=== PATIENT | female | born 1940 | race Caucasian/White ===

== ENCOUNTER 2018-01-16 08:32 | Outpatient (CLI) | payer MEDICARE ==
--- NOTE | 2018-01-16 10:58 | MRI ---
MRI OF THE LEFT WRIST WITHOUT CONTRAST: INDICATION: History of left wrist without history of a fall. TECHNIQUE: Multiplanar, multisequence MR images were obtained of the left wrist without IV contrast. The patien t was unable to lay on the stomach for appropriate positioning of the left wrist. There is motion ar tifact that slightly limits image detail. No radiographic comparisons are available. FINDINGS: There is ulnar minus configuration at the DRUJ. There is an ununited ulnar styloid process fracture. There is advanced 1st CMC osteoarthrosis. There is an obliquely oriented tear involving the centra l aspect of the TFC best seen on image 10 of series 10. The visualized intrinsic and extrinsic ligam ents of the wrist appear intact. Carpal tunnel contents appear within normal limits. The FCR and FC E tendons are intact. The extensor tendons appear intact. IMPRESSION: 1. Limitations of the exam. 2. Obliquely oriented full thickness tear involving the triangular fibrocartilage. 3. Remote-appearing ununited ulnar styloid process fracture. 4. Advanced 1st carpometacarpal osteoarthrosis. POS: [facility]
== END 2018-01-16 08:33 | disposition home or self-care (01) ==
LOC: TBSIIMAG 08:32
PROVIDERS: ATTEND Orthopaedic Surgery Hand Surgery
DX: S63.592A Other specified sprain of left wrist, initial encounter (principal); M18.12 Unilateral primary osteoarthritis of first carpometacarpal joint, left hand

== ENCOUNTER 2018-02-11 19:40 | Emergency (ER) | payer MEDICARE ==
[2018-02-11 20:26] LABS: #Basophils 0.1 thou/uL (0.0-0.2); #Eosinphils 0.1 thou/uL (0.0-0.7); #Lymphocytes 2.3 thou/uL (1.20-3.40); #Monocytes 0.5 thou/uL (0.11-0.59); %Basophils 0.9 % (0.0-1.0); %Lymphocytes 32.4 % (21.0-51.0); %Monocytes 7.8 % (0.0-10.0); Hemoglobin 13.8 g/dL (12.0-16.0); Mean Corpuscular HGB CONC 35.8 g/dL (32.0-36.0); Mean Corpuscular Volume 86.6 fl (81.0-99.0); Mean Platelet Volume 6.9 fL (7.4-10.4); Platelet Count 276 thou/uL (130-400); RBC Distribution Width 12.4 % (11.5-14.5); Red Blood Cell (RBC) Count 4.44 mill/uL (4.20-5.40); White Blood Cell (WBC) Count 6.9 thou/uL (4.8-10.8)
[2018-02-11 20:45] LABS: ALT (SGPT) 11 U/L (8-55); AST (SGOT) 14 U/L (5-34); Albumin 3.8 g/dL (3.4-4.8); Alkaline Phosphatase 125 U/L (40-150); Anion Gap 12 mmol/L (10-20); BUN (Urea Nitrogen) 9 mg/dL (9.8-20.1); Bilirubin, Total 0.5 mg/dL (0.2-1.2); Calc. Creatinine Clearance 0 mL/min (70-130); Calcium 9.2 mg/dL (7.8-10.44); Carbon Dioxide 23 mmol/L (23-31); Chloride 102 mmol/L (98-107); Estimated GFR-MDRD 65; Globulin 2.7 g/dL (2.4-3.5); Glucose 153 mg/dL (83-110); Potassium 3.7 mmol/L (3.5-5.1); Protein, Total 6.5 g/dL (6.0-8.3); Sodium 133 mmol/L (136-145)
--- NOTE | 2018-02-11 20:48 | RAD ---
CHEST TWO VIEWS: HISTORY: Left flank pain. COMPARISON: None. FINDINGS: Slight elongation of the aorta. Atherosclerosis of the aortic knob. Normal cardiac silhouette. The re is patchy interstitial and alveolar opacity. No pleural effusion. No pneumothorax. IMPRESSION: Patchy interstitial and alveolar opacities. Correlate for infiltrate. POS: [facility]
--- NOTE | 2018-02-11 20:49 | RAD ---
ONE VIEW ABDOMEN: HISTORY: Left flank pain. COMPARISON: None. FINDINGS: There are calcifications projecting over the left hemiabdomen, which are of uncertain significance an d etiology. Overall, the bowel gas pattern is nonspecific, but there are a few air-filled loops of m ildly prominent small bowel. Evaluation is limited. Better interrogation with abdomen and pelvis CT utilizing oral and IV contrast is recommended. IMPRESSION: As above. POS: [facility]
[2018-02-11] MEDS ORDERED: Ketorolac Tromethamine 30 MG/ML VIAL ONE (21:36)
[2018-02-11 21:53] LABS: Bilirubin Negative (Negative); Blood, Urine Small (Negative); Clarity CLEAR (Clear); Glucose, Urine (Dipstick) Negative (Negative); Leukocyte Small (Negative); Nitrite Negative (Negative); Protein, Urine (Dipstick) Negative (Neg-Trace); Specific Gravity, Urine 1.006 (1.002-1.036); Urobilinogen 0.2 mg/dL (0.2-1.0)
[2018-02-11 21:55] LABS: Bacteria/HPF None Seen HPF (None Seen); Hyaline Casts/LPF 0-3 HYALINE CAST LPF (0-3 Hyaline); Squamous Epithelial 0-3 HPF (0-3)
--- NOTE | 2018-02-11 22:40 | CT ---
CT ABDOMEN AND PELVIS NONCONTRAST: INDICATIONS: Left flank pain. COMPARISON: None. FINDINGS: No evidence of urolithiasis or obstructive uropathy. There is moderate distention of the urinary blanka dder. An extrarenal pelvis is present bilaterally. Small hypodensity of the right hepatic lobe is t oo small to further characterize. There is fullness of the left adrenal gland. Pancreatic atrophy. Granulomatous calcifications are seen. No significant abnormality at the imaged lung bases. Right hip hardware produces streak artifact, limiting visualization in this region. Chronic appearing supe rior endplate irregularity is present, involving the L4 segment, likely Schmorl's nodes. Diffuse vas cular calcification is present. There is colonic diverticulosis. IMPRESSION: No urolithiasis or obstructive uropathy. Evaluation otherwise limited on the basis of this noncontra st technique, with additional details discussed above. POS: [facility]
== END 2018-02-11 23:54 | disposition home or self-care (01) ==
LOC: ERS 19:40
DX: K59.00 Constipation, unspecified (principal); E78.5 Hyperlipidemia, unspecified; I10 Essential (primary) hypertension; Z87.891 Personal history of nicotine dependence; Z79.82 Long term (current) use of aspirin; Z79.899 Other long term (current) drug therapy
CPT/HCPCS: 71046; 74018; 74176; 80053; 81003; 81015; 85025; 87086; 96374; J1885

== ENCOUNTER 2018-02-12 14:29 | Emergency (ER) | payer MEDICARE ==
[~2018-02-12 14:29] MED LIST: ISOVUE-370 76%-LOCM 1 ML ONE
--- NOTE | 2018-02-12 17:40 | CT ---
CT ANGIOGRAM OF THE THORAX AND ABDOMINAL AORTA: History: Pain. Constipation. Fever. Evaluate for dissection. Comparison: Stone protocol CT 02-11-18. Technique: CT angiogram of the thoracic and abdominal aorta performed in the axial plane. Coronal ref ormatted images are submitted for interpretation. FINDINGS: CHEST CT: No mediastinal mass, lymphadenopathy, or hematoma. Chronic changes of the lung parenchyma with areas of scarring and septal/interstitial thickening are suspected. Trachea and central bronchi are patent. No pleural effusion or pneumothorax. No mediastinal mass, lymphadenopathy or hematoma. Heart size is within normal limits. No pericardial effusion. There is minimal coronary calcification. Adequate contrast opacification of the pulmonary arterial system to the level of lobar arteries. No f illing defect to suggest thromboembolism. ABDOMEN CT: Appropriate enhancement of the solid organs. No mesenteric mass, lymphadenopathy, free air or free fluid. Scattered fecal material in a nondistend ed colon is noted. Symmetric enhancement of the kidneys. No obstructive uropathy. CT ANGIOGRAM: There is appropriate enhancement of luminal diameter of the ascending aorta, aortic arch, descending thoracic aorta, and abdominal aorta. The aortic bifurcation is unremarkable. Celiac artery origin, anderson perior mesenteric artery origin, bilateral renal artery are patent and unremarkable. The origin of th e carotid and vertebral arteries as well as the subclavian arteries are grossly unremarkable. IMPRESSION: No evidence of aneurysm or dissection. POS: [facility]
== END 2018-02-12 17:35 | disposition home or self-care (01) ==
LOC: ERS 14:29
DX: K59.00 Constipation, unspecified (principal); E78.5 Hyperlipidemia, unspecified; I10 Essential (primary) hypertension; Z87.891 Personal history of nicotine dependence; Z79.82 Long term (current) use of aspirin; Z79.899 Other long term (current) drug therapy
CPT/HCPCS: 71275

== ENCOUNTER 2018-07-27 17:20 | Inpatient (IN) | payer MEDICARE ==
[~2018-07-27 17:20] MED LIST changes: -ISOVUE-370 76%-LOCM 1 ML ONE; +Iopamidol 370 76% 100 ML VIAL ONE; +Iopamidol 370 76% 50 ML VIAL FS ONE
[2018-07-27] MEDS ORDERED: Dicyclomine 20 MG TAB ONE (18:16)
[2018-07-27 18:32] LABS: Bilirubin Negative (Negative); Blood, Urine Moderate (Negative); Glucose, Urine (Dipstick) Negative (Negative); Leukocyte Trace (Negative); Nitrite Negative (Negative); Protein, Urine (Dipstick) Negative (Neg-Trace); Urobilinogen 0.2 mg/dL (0.2-1.0); pH, Urine 6.5 (5.0-9.0)
[2018-07-27 18:34] LABS: Clarity CLEAR (Clear)
[2018-07-27 18:40] LABS: Bacteria/HPF Rare-Few HPF (None Seen); Hyaline Casts/LPF NONE SEEN LPF (0-3 Hyaline); Squamous Epithelial 0-3 HPF (0-3)
[2018-07-27 18:54] LABS: #Basophils 0.1 thou/uL (0.0-0.2); #Eosinphils 0.4 thou/uL (0.0-0.7); #Lymphocytes 2.1 thou/uL (1.20-3.40); #Monocytes 0.7 thou/uL (0.11-0.59); #Neutrophils 6.6 thou/uL (1.40-6.50); %Basophils 0.9 % (0.0-1.0); %Eosinophils 4.3 % (0.0-10.0); %Lymphocytes 21.4 % (21.0-51.0); %Monocytes 6.5 % (0.0-10.0); %Neutrophils 66.8 % (42.0-75.0); Hemoglobin 14.6 g/dL (12.0-16.0); Mean Corpuscular HGB CONC 33.5 g/dL (32.0-36.0); Mean Corpuscular Hemoglobin 29.9 pg (27.0-31.0); Mean Corpuscular Volume 89.3 fL (78.0-98.0); Mean Platelet Volume 8.4 fL (7.4-10.4); Platelet Count 197 thou/uL (130-400); RBC Distribution Width 12.4 % (11.5-14.5); Red Blood Cell (RBC) Count 4.88 mill/uL (4.20-5.40); White Blood Cell (WBC) Count 9.9 thou/uL (4.8-10.8)
[2018-07-27 19:14] LABS: ALT (SGPT) 14 U/L (8-55); AST (SGOT) 20 U/L (5-34); Albumin 3.9 g/dL (3.4-4.8); Alkaline Phosphatase 122 U/L (40-150); Anion Gap 11 mmol/L (10-20); BUN (Urea Nitrogen) 9 mg/dL (9.8-20.1); Bilirubin, Total 0.7 mg/dL (0.2-1.2); Calc. Creatinine Clearance 0 mL/min (70-130); Calcium 8.9 mg/dL (7.8-10.44); Carbon Dioxide 22 mmol/L (23-31); Chloride 104 mmol/L (98-107); Estimated GFR-MDRD 88; Globulin 2.8 g/dL (2.4-3.5); Glucose 99 mg/dL (83-110); Lipase 8 U/L (8-78); Potassium 3.3 mmol/L (3.5-5.1); Protein, Total 6.7 g/dL (6.0-8.3); Sodium 134 mmol/L (136-145)
--- NOTE | 2018-07-27 23:09 | CT ---
CT OF THE ABDOMEN AND PELVIS WITH IV CONTRAST 07/27/18 INDICATION: Abdominal surgery with concern for constipation, cramping and abdominal pain. COMPARISON: Prior CT of the abdomen and pelvis. Dated 02/11/18. FINDINGS: There is moderate distention of the ascending colon, transverse colon and descending colon with a tra nsition zone seen at the descending colon/sigmoid colon junction. The sigmoid colon is largely decomp ressed. There are scattered diverticula. There is no pericolonic inflammatory stranding. Small bowel is of normal caliber. The lung bases are clear. There is a small hypodensity within the right hepatic lobe suspicious for cysts. There is a left adre nal nodule measuring 1.4 cm stable to the May examination but cannot be further characterized on the current study. There are bilateral extrarenal pelves. No free fluid or enlarged lymph nodes are demonstrated. There is healed deformity involving the right obturator ring. There is an instrumented right hip frac ture that appears healed. There are scattered degenerative and osteoarthritic change. IMPRESSION: 1. Prominent distention of majority of the colon including ascending colon, transverse colon, de scending colon with transition zone seen at the descending colon/sigmoid colon junction. Findings may be related to a mild colitis. Mild obstruction from colonic stricture is an additional considerati on. 2. Left adrenal nodule, incompletely characterized on current study. If clinically indicated a followup CT of the abdomen utilizing adrenal mass protocol may be helpful f or further characterization. 3. Right hepatic lobe cyst. 4. Other chronic findings as above. POS: [facility]
[2018-07-27] MEDS ORDERED: Ondansetron ODT 4 MG TAB SL PRN (23:36)
[2018-07-27] MEDS ORDERED: Ondansetron PF 4 MG/2 ML Vial IVP PRN (23:36)
[2018-07-27] MEDS ORDERED: Acetaminophen 325 MG TAB PO PRN (23:36)
[2018-07-28] MEDS: Lactated Ringer's 1,000 ML IV SCH ×2 (00:23→09:14)
[2018-07-28] MEDS ORDERED: Acetaminophen 1,000 MG in Premix Bag 1 BAG IVPB PRN (01:01)
[2018-07-28 01:02] VITALS: BMI 29.2
[2018-07-28] MEDS: Ketorolac Tromethamine 30 MG/ML VIAL IVP PRN ×2 (04:40→12:00)
[2018-07-28] MEDS ORDERED: Fleet Enema 133 ML BOT PR SCH ×2 (09:00→11:30)
[2018-07-28] MEDS ORDERED: Meropenem 2 GM, Admixture Fee 1 EACH in Sodium Chloride 0.9% 100 ML IVPB SCH (10:00)
[2018-07-28] MEDS ORDERED: Sodium Chloride 0.9% 1,000 ML IV SCH (10:00)
--- NOTE | 2018-07-28 10:08 | HP ---
HISTORY OF PRESENT ILLNESS: Kelly Bah is a 77-year-old female, who presented to the emergency ro om with crampy abdominal pain and distention. CAT scan revealed transition zones, descending sigmoid colon with proximal colon distention and distal colon decompression. She has not had a colonoscopy in more than 25 years. She denies any blood per rectum. Family history is negative for colon cancer . She does have sisters that had had breast cancer. The patient's laboratories are essentially norm al. ALLERGIES: MORPHINE. TOBACCO: Cessation 10 years ago. ALCOHOL: None. MEDICATIONS: Ranitidine 150 mg b.i.d., Senna 8.6 mg b.i.d., Spiriva inhaler daily, Zocor 40 mg at be dtime, aspirin 81 mg a day. PAST SURGICAL HISTORY: Bilateral mastectomies for benign disease, reconstruction and subsequent beni al of implant. She had some "sort of flap" reconstruction from her lower abdomen, probably TRAM. R ight hip ORIF, history of pelvic fracture without surgery, total abdominal hysterectomy and bilateral salpingo-oophorectomy over 2 operations, appendectomy during her hysterectomy. PAST MEDICAL HISTORY: COPD. Tobacco cessation 10 years ago, hypertension, although medication disco ntinued due to too low blood pressure. The patient earlier this year, because of some epigastr ic pain, saw [facility] squeak rattle and leak repairer, undergoing a cardiac stress test that was n ormal. She was told her heart was very healthy and did not need Cardiology followup. She saw Dr. Ra heredia, and in November or December of this year, had an upper endoscopy documented peptic ulcer disease. She is on ranitidine. REVIEW OF SYSTEMS: Ten point noncontributory. The patient lives with her son in [place]. 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 PHYSICAL EXAMINATION: VITAL SIGNS: 5 feet 3, 164 pounds, 29 BMI, 97.6, 70, 18, 105/68. LUNGS: Clear to auscultation, no wheezing. CARDIAC: Regular rate and rhythm without murmur or gallop. ABDOMEN: Soft, distended, tympanitic. No guarding. Scars per above surgical history. EXTREMITIES: Palpable pulses. LABORATORY DATA: White count 9, hemoglobin 14. Basic metabolic profile normal. Potassium 3.3 and s odium 134. ASSESSMENT AND PLAN: 1. Abdominal pain, distention, suggesting a possible colon obstruction. We would recommend enemas a wy Gastroenterology consultation. They request Dr. Gonzalez. If he is not available, [facility]. We would be prepared for colon resection, colostomy if necessary after a flexible sigmoidoscopy or colonoscopy is possible. She would not be able to tolerate a bowel prep due to her colon distention. We will give her enemas. 2. Hypertension. 3. Chronic obstructive pulmonary disease, mild. No wheezing. 4. Cardiac stress test earlier this year, normal.
[2018-07-28] MEDS: NS 0.9% w/ 40 MEQ KCL 1,000 ML IV SCH ×2 (11:00→19:44)
[2018-07-28] MEDS: Ipratropium Bromide 2.5 ml Neb NEB SCH ×3 (12:21→22:40)
[2018-07-28] MEDS ORDERED: PHENYLEPHRINE-NS 100 MCG/ML 10 ML SYRINGE ONE (13:18)
[2018-07-28] MEDS ORDERED: Glycopyrrolate 0.2 MG/ML 5 ML SYRINGE ONE (13:18)
[2018-07-28] MEDS ORDERED: Succinylcholine Chloride 20 MG/ML 10 ml SYRINGE FS ONE (13:18)
[2018-07-28] MEDS ORDERED: PROPOFOL 200 MG/20 ML VIAL ONE (13:18)
[2018-07-28] MEDS ORDERED: Ondansetron PF 4 MG/2 ML Vial ONE (13:18)
[2018-07-28] MEDS ORDERED: Lidocaine 1% PF 5 ML VIAL ONE (13:18)
[2018-07-28] MEDS ORDERED: Fentanyl 250 MCG/5 ML VIAL ONE (13:54)
[2018-07-28] MEDS ORDERED: Sodium Chloride 0.9% 20 ML ONE (15:33)
[2018-07-28] MEDS ORDERED: Midazolam HCl 2 mg/2 ml Vial ONE (16:59)
--- NOTE | 2018-07-28 17:00 | CON ---
DATE OF CONSULTATION: 07/28/2018 REFERRING PHYSICIAN: Dr. Jeremy Scott. REASON FOR CONSULTATION: Abdominal pain, not able to have a BM and abnormal CT scan of the abdomen. HISTORY OF PRESENT ILLNESS: Ms. Kelly Bah is a very pleasant 77-year-old female who is known to me from before. The patient was admitted to the hospital with abdominal pain, nausea, and underwent EGD and was found to have a gastric ulcer. The patient was placed on PPI. The patient had not seen me after the initial visit at endoscopy unit this year. The patient also has a history of chronic constipation and takes laxatives and stool softener on a regular basis. She had 3 soft stool s on Tuesday. She had no stool yesterday and she is not passing any flatus. She was found to have abdominal cramping, which is diffuse across the lower abdomen with some nausea. She is not able to have any bowel movement over the last 48 hours and also she is also not able to pass any gas. She ca me to the ER where she had an abdominal CAT scan done. The abdominal CAT scan shows decompressed sig moid colon and distended proximal colon indicated possibly she has a bowel obstruction. The patient has had no colonoscopy more than 20 years. The patient has no history of fever, no history of hemato chezia or any melena. The patient's previous surgeries include hysterectomy and also removal of ovar y subsequently. She has no relevant history. ALLERGIES: OPIOIDS. SOCIAL HISTORY: The patient does not smoke or drink alcohol. MEDICAL ILLNESSES: 1. Hypertension and was on some medication and was taken off the medication as her blood pressure be en normalized. 2. Arthritis. 3. Hyperlipidemia. 4. Gastric ulcer in 2018. PAST SURGICAL HISTORY: She has had hysterectomy and subsequently oophorectomy. She also has had a r ight hip fracture with pin placement. She had a pelvic fracture earlier this year. MEDICATIONS: List reviewed which include, 1. Zantac 150 twice a day. 2. Senna. 3. Spiriva inhaler. 4. Simvastatin. 5. Aspirin. REVIEW OF SYSTEMS: A 10-point system review: Constitutional: No history of weight loss. No fever. She has good exercise tolerance. No history of any weakness. HEENT: No diplopia, no hearing loss , no sore throat, no nose bleed. Lungs: No hemoptysis. Cardiovascular: No chest pain, no palpitat ion, no dyspnea, orthopnea or PND. Gastrointestinal: As in history of present illness. Genitourina ry: No dysuria, hematuria or frequency of urination. Musculoskeletal: History of back pain and knee pains. Endocrine: Unremarkable. PHYSICAL EXAMINATION: GENERAL: The patient appears very comfortable in no acute distress. She is awake, alert, oriented t o time, place and person. The family is not in the room. VITAL SIGNS: Actually stable. Afebrile, pulse is 60, blood pressure is 115/71. HEENT: Conjunctivae clear. CARDIOVASCULAR: First and second heart sounds were normal. LUNGS: Clear to auscultation. ABDOMEN: Mildly distended, but very soft. Abdomen is tender over the left lower quadrant and also o edu the epigastric area. There is no rebound, no rigidity or guarding noted. She has hypoactive bow el sounds. EXTREMITIES: Reveal no edema. LABORATORY DATA AND IMAGING: WBC 9900, hemoglobin 14.6, hematocrit 43.6, platelet count is 197,000, polymorphs 66, lymphocytes 21. Serum chemistries: Sodium is normal, potassium 3.3, chloride 104, bi carbonate 22, BUN is 9, creatinine 0.65, glucose is 99, calcium is 8.9, bilirubin 0.7, AST 20, ALT 14 . An abdominal CAT scan shows dilation of the descending colon, ascending colon, transverse colon, b ut the sigmoid colon appears decompressed and I am seeing a possibility of bowel obstruction. She is not having stool over the last 36 hours and not able to pass any gas. However, the abdomen is actua lly somewhat benign not very much distended and not very firm. CLINICAL IMPRESSION: 1. Hypertension, not on medication. 2. Hyperlipidemia. 3. Previous leg fracture surgery. 4. Gastric ulcer in 2018. RECOMMENDATIONS: 1. NPO. 2. Flexible later on this morning and I will make further recommendations.
[2018-07-28] MEDS ORDERED: Promethazine HCl 25 MG/ML VIAL SLOW IVP PRN (17:07)
[2018-07-28] MEDS ORDERED: Ondansetron HCl/PF 4 MG/2 ML Vial IVP PRN (17:07)
[2018-07-28] MEDS ORDERED: Ketorolac Tromethamine 30 MG/ML VIAL IVP PRN ×2 (17:07→17:31)
[2018-07-28] MEDS ORDERED: Promethazine HCl 25 MG/ML VIAL IM PRN ×2 (17:07→17:31)
[2018-07-28] MEDS ORDERED: HYDROmorphone 2 MG/ML VIAL SLOW IVP PRN (17:07)
[2018-07-28] MEDS ORDERED: Fentanyl 100 MCG/2 ML VIAL ONE (17:18)
[2018-07-28] MEDS ORDERED: Naloxone HCl 0.4 mg/ml Vial IV PRN (17:31)
[2018-07-28] MEDS ORDERED: diphenhydrAMINE 25 MG CAP PO PRN (17:31)
[2018-07-28] MEDS ORDERED: diphenhydrAMINE 50 MG/ML VIAL IVP PRN (17:31)
[2018-07-28] MEDS ORDERED: Ondansetron PF 4 MG/2 ML Vial IVP PRN (17:31)
[2018-07-28] MEDS ORDERED: Zolpidem Tartrate 5 MG TAB PO PRN (17:31)
[2018-07-28] MEDS ORDERED: fentaNYL Citrate/PF 2,000 MCG in Sodium Chloride 0.9% 60 ML IV PRN (17:31)
[2018-07-28] MEDS ORDERED: diphenhydrAMINE 50 MG/ML VIAL IM PRN (17:31)
[2018-07-28] MEDS ORDERED: HYDROmorphone 2 MG/ML VIAL ONE (17:37)
--- NOTE | 2018-07-28 17:41 | RAD ---
UPRIGHT PORTABLE CHEST ONE VIEW: 07/28/18 HISTORY: 77-year-old female with history of central line placement. COMPARISON: 02/11/18. FINDINGS: NG tube is seen in place extending into the stomach, although the distal tip is not included. Right s ubclavian catheter in place with the tip in the distal superior vena cava. No pneumothorax or pleural effusion. Increased linear and interstitial markings bilaterally. IMPRESSION: Right subclavian catheter in place without pneumothorax. Some increased linear and interstitial damián ngs bilaterally, stable. NG tube in place. Atherosclerosis of the aorta with ectasia. POS: [facility]
[2018-07-28] MEDS ORDERED: Communication Order-Pharmacy FS SCH (17:45)
[2018-07-28] MEDS: Ketorolac Tromethamine 30 MG/ML VIAL IVP SCH ×2 (19:38→23:23)
[2018-07-28] MEDS: Acetaminophen 1,000 MG in Premix Bag 1 BAG IVPB SCH ×2 (19:38→23:24)
--- NOTE | 2018-07-28 19:59 | OP ---
DATE OF PROCEDURE: 07/28/2018 PROCEDURE: Flexible sigmoidoscopy. PREOPERATIVE DIAGNOSIS: Colonic obstruction and preoperative evaluation. OPERATIVE NOTE: The patient was sedated with general anesthesia. The rectal exam was performed and was normal. There were external hemorrhoids present. The colonoscope was advanced to the sigmoid co eugene. The procedure is a flexible sigmoidoscopy. The scope was advanced to the sigmoid colon. There was moderate diverticulosis of the sigmoid colon. A stricture was encountered in the proximal sigmo id through which the colonoscope could not be passed. There was no clear mucosal abnormality in this area. There was melanosis throughout the distal colon. Retroflex views in the rectum were normal. IMPRESSION: 1. Tight stricture in the mid to proximal sigmoid without mucosal lesion through which the colonosco pe could not be passed. 2. Moderate diverticulosis of the sigmoid colon. 3. Melanosis coli. 4. The colon proximal to the stricture was not visualized. PLAN: 1. She is to undergo surgical resection of the obstructing area. 2. She will eventually need completion colonoscopy.
[2018-07-28] MEDS: Enoxaparin Sodium 40 MG/0.4 ML SYRINGE SC SCH (20:24)
[2018-07-28] MEDS: Pantoprazole 40 MG VIAL IVP SCH (20:25)
--- NOTE | 2018-07-28 23:40 | OP ---
DATE OF PROCEDURE: 07/28/2018 PREOPERATIVE DIAGNOSES: Sigmoid colon obstruction, probably secondary to stricture, diverticulosis. No history of diverticulitis. POSTOPERATIVE DIAGNOSES: Sigmoid colon obstruction, probably secondary to stricture, diverticulosis. No history of diverticulitis. PROCEDURES: Dr. Silvano Odonnell first performed a flexible sigmoidoscopy, could not pass the scope bey ond an obstruction at approximately 30 cm. Laparotomy, sigmoid resection, mobilization of splenic fl exure, sigmoid colon resection, portion of the descending colon resection, colostomy, Vane's pouc h, marked with a 2-0 Prolene, Seprafilm placed, right subclavian vein triple-lumen catheter. SURGEON: Jeremy Scott M.D. ANESTHESIA: General anesthesia. PROCEDURE IN DETAIL: The patient was taken to the operating room where under general anesthesia, Dr. Silvano Odonnell first performed a flexible sigmoidoscopy revealing the above findings. Abdomen was ma rkedly distended. Abdomen was prepared with ChloraPrep, draped in routine fashion. Incision was mad e, initially smaller, then I had to enlarge it due to extensive distention of the colon. The incisio n was carried down through skin and subcutaneous tissue with great care to avoid colon perforation. Midline incision was made, carried down through skin and subcutaneous tissue and midline fascia and B ookwalter retractor used and I was able to mobilize the distal descending colon and sigmoid colon. T here was stricture noted in the lower sigmoid colon. ____ below the stricture, the colon was decompr essed. The colon was dissected free probably about 10 cm below the stricture and mesentery taken ilene n with LigaSure and colon divided with contour stapler. Mesentery divided with LigaSure proximally m obilizing the left colon, identifying the left ureter, keeping it free of harm. Venous congestion du e to the obstruction lead to some bleeding controlled with pressure and cautery and LigaSure. Left u reter kept free of harm as the colon was mobilized along the splenic flexure and the gastrocolic liga ment taken down from the distal transverse colon using the LigaSure and cautery. Once the splenic fl exure was mobilized, the obstructive process was resected, resecting the sigmoid colon, dividing the distal descending colon with a ASIM-75 stapler. Specimen was submitted to pathology. At this point, good hemostasis ensured. Surgicel placed near the splenic flexure and the pelvis. Good hemostasis w as noted. Sponge and instrument counts were correct and omentum placed over the viscera. The small bowel was not very distended and very slightly so. Nonetheless, an NG tube was placed, palpated in g ood position. As counts were correct, midline fascia closed with continuous suture of number 1 PDS a fter creating the colostomy defect in the left lower quadrant through the rectus sheath, splitting th e anterior rectus fascia, retracting the rectus muscle medially and laterally and bringing the colon out the colostomy site. The fascia was then approximated with number 1 PDS and Seprafilm applied. T he skin and subcutaneous tissues irrigated. Skin approximated with sweta. Prevena dressing applie d for incisional wound VAC. At this point, the gloves and gowns were changed and the colon was resec enrique and placed with the other specimen removing the redundant colon and colostomy maturation undertak en with ____ sutures of 3-0 Vicryl and simple sutures of 3-0 Vicryl and after Prevena wound VAC was a pplied and colostomy matured, colostomy appliance secured. I then changed gloves and gowns and right subclavian vein central line placed using sterile technique , securing the catheter with 3-0 silk suture, removing the J wire. CHD dressing applied. Each port aspirated of blood and flushed with saline solution.
[2018-07-29] MEDS: NS 0.9% w/ 40 MEQ KCL 1,000 ML IV SCH ×3 (03:05→19:22)
[2018-07-29 04:29] LABS: #Lymphocytes 0.8 thou/uL (1.20-3.40); #Monocytes 0.6 thou/uL (0.11-0.59); #Neutrophils 8.1 thou/uL (1.40-6.50); %Basophils 0.2 % (0.0-1.0); %Eosinophils 0.2 % (0.0-10.0); %Lymphocytes 8.3 % (21.0-51.0); %Monocytes 6.3 % (0.0-10.0); %Neutrophils 85.1 % (42.0-75.0); Hemoglobin 12.1 g/dL (12.0-16.0); Mean Corpuscular HGB CONC 32.1 g/dL (32.0-36.0); Mean Corpuscular Volume 90.4 fL (78.0-98.0); Mean Platelet Volume 8.7 fL (7.4-10.4); Platelet Count 171 thou/uL (130-400); RBC Distribution Width 12.6 % (11.5-14.5); Red Blood Cell (RBC) Count 4.18 mill/uL (4.20-5.40); White Blood Cell (WBC) Count 9.6 thou/uL (4.8-10.8)
[2018-07-29 04:59] LABS: Anion Gap 8 mmol/L (10-20); BUN (Urea Nitrogen) 8 mg/dL (9.8-20.1); Calc. Creatinine Clearance 87 mL/min (70-130); Carbon Dioxide 25 mmol/L (23-31); Chloride 107 mmol/L (98-107); Estimated GFR-MDRD Greater than 90; Glucose 143 mg/dL (83-110); Magnesium 1.4 mg/dL (1.6-2.6); Phosphorus 2.9 mg/dL (2.3-4.7); Potassium 4.2 mmol/L (3.5-5.1); Sodium 136 mmol/L (136-145)
[2018-07-29] MEDS: Acetaminophen 1,000 MG in Premix Bag 1 BAG IVPB SCH ×4 (05:18→23:08)
[2018-07-29] MEDS: Ketorolac Tromethamine 30 MG/ML VIAL IVP SCH ×4 (05:18→23:10)
[2018-07-29] MEDS: Ipratropium Bromide 2.5 ml Neb NEB SCH ×2 (07:12→13:03)
[2018-07-29] MEDS: Pantoprazole 40 MG VIAL IVP SCH ×2 (09:11→19:58)
--- NOTE | 2018-07-29 17:36 | PRG ---
DATE OF SERVICE: 07/29/2018 SUBJECTIVE: I am seeing Ms. Bah on behalf of Dr. Scott. The patient is a 77-year-old woman who i s postoperative day #1, status post Vane's procedure. She is awake and alert. She reports sever e abdominal pain, although improved from yesterday. Urinary output is adequate. Nasogastric tube re lexy in place and returns moderate amount of bile-tinged gastric effluent. OBJECTIVE: HEART: Reveals regular rate and rhythm, no murmurs or gallops auscultated. CHEST: Clear to auscultation bilaterally. Breathing regular and unlabored. ABDOMEN: Soft and distended. Colostomy is viable and edematous with scant amount of gas, no stool. Incision remains intact, clean, and dry. LABORATORY DATA: Includes CBC with 9600 white blood cells, hemoglobin and hematocrit are 12.1 and 37 .8, respectively, platelet count is 171,000. Metabolic profile: Sodium 136, potassium is 4.2, chlor deonte is 107, bicarbonate 25, BUN 8, creatinine 0.62, glucose 143, phosphorus is 2.9, magnesium is 1.4. IMPRESSION: 1. Postoperative day #1 status post Vane's procedure. 2. Acute hypomagnesemia. 3. Acute hypophosphatemia. PLAN: 1. Correct abnormal electrolytes. 2. Continue with the nasogastric tube decompression, evaluate later and discontinue nasogastric tube if the output remains low and there is no sign of nausea. 3. Encourage the patient to ambulate increase of activity per physical and occupational therapy. Above findings and plan discussed with the patient who indicates understanding of information given. I have answered her questions.
[2018-07-29] MEDS ORDERED: Magnesium Sulfate 3 GM in Sodium Chloride 0.9% 100 ML IVPB SCH (17:45)
[2018-07-29] MEDS: Enoxaparin Sodium 40 MG/0.4 ML SYRINGE SC SCH (20:04)
[2018-07-30] MEDS: NS 0.9% w/ 40 MEQ KCL 1,000 ML IV SCH ×2 (00:35→05:03)
[2018-07-30] MEDS: Ketorolac Tromethamine 30 MG/ML VIAL IVP SCH (05:01)
[2018-07-30] MEDS: Acetaminophen 1,000 MG in Premix Bag 1 BAG IVPB SCH (05:01)
[2018-07-30] MEDS: Pantoprazole 40 MG VIAL IVP SCH ×2 (09:39→20:12)
[2018-07-30] MEDS ORDERED: traMADol HCl 50 MG TAB PO PRN (10:33)
[2018-07-30] MEDS: traMADol HCl 50 MG TAB PO SCH ×2 (11:55→17:53)
[2018-07-30] MEDS ORDERED: Acetaminophen 500 MG TAB PO SCH (12:00)
[2018-07-30] MEDS: Ibuprofen 600 MG TAB PO SCH ×2 (14:28→21:00)
[2018-07-30] MEDS: Acetaminophen 500 MG TAB PO SCH ×2 (15:34→20:11)
[2018-07-30] MEDS ORDERED: Sodium Chloride 0.9% 500 ML IV SCH (18:00)
[2018-07-30 18:32] LABS: Anion Gap 8 mmol/L (10-20); BUN (Urea Nitrogen) 8 mg/dL (9.8-20.1); Calc. Creatinine Clearance 106 mL/min (70-130); Calcium 8.2 mg/dL (7.8-10.44); Carbon Dioxide 21 mmol/L (23-31); Chloride 106 mmol/L (98-107); Estimated GFR-MDRD Greater than 90; Glucose 101 mg/dL (83-110); Magnesium 1.6 mg/dL (1.6-2.6); Phosphorus 1.2 mg/dL (2.3-4.7); Potassium 4.4 mmol/L (3.5-5.1); Sodium 131 mmol/L (136-145)
[2018-07-30] MEDS ORDERED: Sodium Phosphate 30 MMOL in Sodium Chloride 0.9% 250 ML 250 ML IVPB ONE (19:00)
[2018-07-30] MEDS ORDERED: Magnesium 2 GM/50 ML 2 GM in Premix Bag 1 BAG IVPB SCH (19:00)
--- NOTE | 2018-07-30 19:23 | PRG-2 ---
DATE OF SERVICE: 07/30/2018 SUBJECTIVE: This is a 77-year-old female who is postop day 2 status post Vane's procedure. The patient is sitting in a chair, out of bed. NG tube has been removed. She states her pain is improvi ng. OBJECTIVE: VITAL SIGNS: Temperature 97.7, pulse 105, respirations 24, O2 sat 98% on room air, blood pressure 13 2/75. GENERAL: Elderly-appearing female, in no acute distress, sitting in a chair, out of bed. PULMONARY: Normal work of breathing. Symmetric rise. CARDIOVASCULAR: Mildly tachycardic. GASTROINTESTINAL: Abdomen is soft with generalized tenderness. There is air in the ostomy bag. MUSCULOSKELETAL: Moves all extremities x4. NEUROLOGIC: No focal deficit noted. LABORATORY FINDINGS: No new laboratory findings. ASSESSMENT: 1. Postoperative day 2 status post Vane's procedure. 2. Electrolyte abnormalities. PLAN: NG tube has been removed and bowel function appears to be returning. We will advance to clear liquid diet at this time. Continue to monitor. Transition the patient to p.o. pain medications. A .m. labs. Continue to encourage mobility and incentive spirometry. Plan of care was discussed with the patient at bedside and all questions were answered at the time of this dictation. The patient wa s discussed with Trauma attending.
[2018-07-30] MEDS: Senokot S 8.6-50 MG TAB PO SCH (20:11)
[2018-07-30] MEDS: Enoxaparin Sodium 40 MG/0.4 ML SYRINGE SC SCH (20:12)
--- NOTE | 2018-07-30 22:13 | RAD ---
UPRIGHT PORTABLE CHEST ONE VIEW: History: 77-year-old female with history of hypoxia. Comparison: 07-28-18 FINDINGS: The endotracheal tube has been removed. Right central line remains in place. Minimal increased linear and interstitial markings bilaterally. No cardiomegaly. No pleural effusion or confluent pneumonia. IMPRESSION: Stable increased linear and interstitial markings. No new process. Atherosclerosis of the aorta. POS: [facility]
[2018-07-31] MEDS: traMADol HCl 50 MG TAB PO SCH ×4 (00:09→17:46)
[2018-07-31] MEDS: Acetaminophen 500 MG TAB PO SCH ×4 (02:48→21:00)
[2018-07-31 03:34] LABS: #Basophils 0.1 thou/uL (0.0-0.2); #Eosinphils 0.6 thou/uL (0.0-0.7); #Lymphocytes 1.6 thou/uL (1.20-3.40); #Monocytes 0.5 thou/uL (0.11-0.59); #Neutrophils 6.6 thou/uL (1.40-6.50); %Basophils 0.6 % (0.0-1.0); %Eosinophils 6.9 % (0.0-10.0); %Lymphocytes 16.9 % (21.0-51.0); %Monocytes 4.9 % (0.0-10.0); %Neutrophils 70.6 % (42.0-75.0); Hemoglobin 9.3 g/dL (12.0-16.0); Mean Corpuscular HGB CONC 32.8 g/dL (32.0-36.0); Mean Corpuscular Volume 91.3 fL (78.0-98.0); Platelet Count 173 thou/uL (130-400); RBC Distribution Width 12.5 % (11.5-14.5); White Blood Cell (WBC) Count 9.4 thou/uL (4.8-10.8)
[2018-07-31 03:55] LABS: Anion Gap 10 mmol/L (10-20); BUN (Urea Nitrogen) 6 mg/dL (9.8-20.1); Calc. Creatinine Clearance 96 mL/min (70-130); Calcium 7.7 mg/dL (7.8-10.44); Carbon Dioxide 23 mmol/L (23-31); Chloride 105 mmol/L (98-107); Estimated GFR-MDRD Greater than 90; Glucose 98 mg/dL (83-110); Magnesium 1.9 mg/dL (1.6-2.6); Phosphorus 2.8 mg/dL (2.3-4.7); Sodium 134 mmol/L (136-145)
[2018-07-31] MEDS: Ibuprofen 600 MG TAB PO SCH ×3 (05:20→21:00)
[2018-07-31] MEDS: Senokot S 8.6-50 MG TAB PO SCH ×2 (09:14→21:00)
[2018-07-31] MEDS: Pantoprazole 40 MG VIAL IVP SCH (09:14)
--- NOTE | 2018-07-31 15:12 | PRG ---
DATE OF SERVICE: 07/31/2018 SUBJECTIVE: Ms. Bah is doing well today. She is tolerating a diet. She is 3 days postoperative c olon resection and colostomy for obstructing probable sigmoid stricture. Awaiting pathology. She de nies having nausea or vomiting. OBJECTIVE: VITAL SIGNS: Temperature 97.5, pulse 79, blood pressure 133/79. Aguayo catheter has been removed and she is voiding without problems. LABORATORY DATA: White count 9, hemoglobin 9.3 today. Basic metabolic profile essentially unremarka ble. Sodium 134. ASSESSMENT AND PLAN: Doing well. Colostomy looks healthy. She has stool and gas in her colostomy b ag. She has an incisional wound VAC, which will be removed tomorrow prior to discharge. Anticipate discharge home. Her mobility is good enough that she thinks she will be able to go home as her son ceferino murphy with her radio time salesperson and is available 24 hours a day.
--- NOTE | 2018-07-31 17:03 | EKG ---
Test Reason : Blood Pressure : / mmHG Vent. Rate : 123 BPM Atrial Rate : 123 BPM P-R Int : 000 ms QRS Dur : 074 ms QT Int : 290 ms P-R-T Axes : 068 031 -27 degrees QTc Int : 415 ms Sinus tachycardia with 1st degree A-V block with Premature supraventricular complexes Septal infarct , age undetermined Nonspecific ST-T changes Abnormal ECG No previous ECGs available Confirmed by DR. Otoniel MISHRA ([id number]) on 07/31/2018 5:03:34 PM Referred By: MIKAELA Confirmed By:DR. Otoniel MISHRA
[2018-07-31] MEDS: Enoxaparin Sodium 40 MG/0.4 ML SYRINGE SC SCH (20:59)
[2018-07-31] MEDS: Famotidine 20 MG TAB PO SCH (21:00)
[2018-07-31] MEDS ORDERED: Atorvastatin Calcium 20 MG TAB PO SCH (21:00)
[2018-07-31] MEDS ORDERED: Aspirin 81 mg Enteric Coated Tablet PO SCH (21:00)
[2018-07-31] MEDS: Senokot 8.6 MG TAB PO SCH (21:01)
[2018-08-01] MEDS: traMADol HCl 50 MG TAB PO SCH ×3 (00:08→12:47)
[2018-08-01] MEDS: Acetaminophen 500 MG TAB PO SCH ×2 (02:48→09:17)
[2018-08-01] MEDS: Ibuprofen 600 MG TAB PO SCH (05:38)
[2018-08-01] MEDS: Senokot S 8.6-50 MG TAB PO SCH (09:17)
[2018-08-01] MEDS: Senokot 8.6 MG TAB PO SCH (09:17)
[2018-08-01] MEDS: Famotidine 20 MG TAB PO SCH (09:17)
--- NOTE | 2018-08-01 10:35 | PRG ---
DATE OF SERVICE: 08/01/2018 SUBJECTIVE: Kelly Bah is doing well today. She is tolerated her diet. Her colostomy is working well. She has been instructed on colostomy care. Home health has been arranged to help her with co lostomy care at home. Her son is with her daily throughout the day to help her at home. She wants t o go home. OBJECTIVE: VITAL SIGNS: Temperature 98.1 degrees, pulse 80, blood pressure 129/78. LUNGS: Clear to auscultation. CARDIAC: Regular rate and rhythm without murmur or gallop. ABDOMEN: Soft, nontender. Prevena wound VAC has been removed. Her staple line is intact. Colostomy healthy. She is discharged home with hemoglobin of 9.3. Basic metabolic profile was normal. Plan is to disch arge home. Follow up with me next week for staple removal.
[2018-08-01 11:59] VITALS: BP 124/78; TEMP 97.7
--- NOTE | 2018-08-01 12:06 | DIS ---
DATE OF ADMISSION: 07/27/2018 DATE OF DISCHARGE: 08/01/2018 DISCHARGE DIAGNOSES: Diverticulitis with obstruction, most likely pathology pending, colon obstructi on. No peritonitis. PROCEDURES THIS HOSPITALIZATION: CAT scan of the abdomen and pelvis, flexible sigmoidoscopy by Dr. Parish Odonnell, could not pass the scope beyond the mid sigmoid, exploratory laparotomy, colon resectio n, colostomy, Vane's pouch. HISTORY: The patient with bowel obstruction, seen in the emergency room and admitted to the un derwent IV fluid hydration, taken to the operating room the next morning and did not really have any small bowel dilatation. Dr. Odonnell saw her and flexible sigmoidoscopy could not pass the scope beyond the obstructing process, mid sigmoid and she underwent open operation, mobilization of splenic flexu re, left colon resection, colostomy. Postoperatively, she did well, convalesced, tolerated diet. 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 She is allergic to opioids, but this is more than an adverse reaction and not a true allergy. She is sent home to resume her home medications, which consist of Zantac daily, Senna 8.6 mg b.i.d., Spiriva daily, Zocor at bedtime, aspirin 81 mg at bedtime, tramadol p.r.n. pain, ibup rofen as needed for pain, Tylenol extra strength as needed for pain. Follow up in my office next wee k for staple removal. Diet and activity as tolerated. Of note is that the patient had seen a cardio logist earlier this year for her left abdominal epigastric pain and cardiology evaluation stress test unremarkable. She was told she had a normal heart. She saw Dr. Gonzalez and underwent upper endos copy that was normal except for mild ulcer disease. She was placed on a PPI. She continued to have the pain and presented with an obstruction. Dr. Odonnell was covering for Dr. Gonzalez who performed h er current endoscopy. The patient will need a completion colonoscopy prior to colostomy reversal in the next 3 months.
== END 2018-08-01 14:17 | disposition home or self-care (01) | DRG 331 ==
LOC: ERS 17:20 → SURG A 21:17
PROVIDERS: ADMIT Specialist; ATTEND Specialist
PROC: 0DTN0ZZ Resection of Sigmoid Colon, Open Approach (ICD-10-PCS; principal; 2018-07-28)
PROC: 0D1M0Z4 Bypass Descending Colon to Cutaneous, Open Approach (ICD-10-PCS; 2018-07-28)
PROC: 0DBM0ZZ Excision of Descending Colon, Open Approach (ICD-10-PCS; 2018-07-28)
PROC: 05H533Z Insertion of Infusion Device into Right Subclavian Vein, Percutaneous Approach (ICD-10-PCS; 2018-07-28)
PROC: 0DJD8ZZ Inspection of Lower Intestinal Tract, Via Natural or Artificial Opening Endoscopic (ICD-10-PCS; 2018-07-28)
PROC: 0D9670Z Drainage of Stomach with Drainage Device, Via Natural or Artificial Opening (ICD-10-PCS; 2018-07-28)
DX: K56.699 Other intestinal obstruction unspecified as to partial versus complete obstruction (principal); J44.9 Chronic obstructive pulmonary disease, unspecified; I10 Essential (primary) hypertension; K57.30 Diverticulosis of large intestine without perforation or abscess without bleeding; K64.4 Residual hemorrhoidal skin tags; K25.9 Gastric ulcer, unspecified as acute or chronic, without hemorrhage or perforation; M19.90 Unspecified osteoarthritis, unspecified site; E78.5 Hyperlipidemia, unspecified; E83.42 Hypomagnesemia; E83.39 Other disorders of phosphorus metabolism; Z88.5 Allergy status to narcotic agent; Z79.82 Long term (current) use of aspirin; Z87.891 Personal history of nicotine dependence
CPT/HCPCS: 36415; 71045; 74177; 80048; 80053; 81003; 81015; 82378; 83690; 83735; 83880; 84100; 85025; 88307; 93005; 93010; 94640; 96360; C9113; J0131; J1170; J1650; J1885; J2001; J2185; J2250; J2405; J2704; J3010; J3475; J7050; J7620; J7644

== ENCOUNTER 2018-08-01 16:05 | Emergency (ER) | payer MEDICARE | END 2018-08-01 19:08 | disposition home or self-care (01) | LOC: ERS 16:05 | DX: Z43.3 Encounter for attention to colostomy (principal); E78.5 Hyperlipidemia, unspecified; I10 Essential (primary) hypertension; Z87.891 Personal history of nicotine dependence; Z79.82 Long term (current) use of aspirin; Z79.899 Other long term (current) drug therapy | CPT/HCPCS: 99283 ==

== ENCOUNTER 2018-08-04 02:26 | Inpatient (IN) | payer MEDICARE ==
[2018-08-04] MEDS ORDERED: Ondansetron ODT 4 MG TAB ONE (02:44)
[2018-08-04 03:30] LABS: #Basophils 0.1 thou/uL (0.0-0.2); #Eosinphils 0.3 thou/uL (0.0-0.7); #Neutrophils 8.1 thou/uL (1.40-6.50); %Basophils 0.7 % (0.0-1.0); %Eosinophils 2.6 % (0.0-10.0); %Lymphocytes 17.7 % (21.0-51.0); %Monocytes 8.4 % (0.0-10.0); %Neutrophils 70.6 % (42.0-75.0); Hemoglobin 11.2 g/dL (12.0-16.0); Mean Corpuscular HGB CONC 33.5 g/dL (32.0-36.0); Mean Corpuscular Hemoglobin 29.6 pg (27.0-31.0); Mean Corpuscular Volume 88.1 fL (78.0-98.0); Mean Platelet Volume 6.9 fL (7.4-10.4); Platelet Count 356 thou/uL (130-400); RBC Distribution Width 12.6 % (11.5-14.5); Red Blood Cell (RBC) Count 3.79 mill/uL (4.20-5.40); White Blood Cell (WBC) Count 11.5 thou/uL (4.8-10.8)
[2018-08-04 03:50] LABS: ALT (SGPT) 25 U/L (8-55); AST (SGOT) 23 U/L (5-34); Albumin 3.1 g/dL (3.4-4.8); Alkaline Phosphatase 110 U/L (40-150); Anion Gap 14 mmol/L (10-20); BUN (Urea Nitrogen) 7 mg/dL (9.8-20.1); Bilirubin, Total 0.7 mg/dL (0.2-1.2); CK (CPK) 50 U/L (29-168); Calc. Creatinine Clearance 0 mL/min (70-130); Calcium 9.1 mg/dL (7.8-10.44); Carbon Dioxide 26 mmol/L (23-31); Chloride 99 mmol/L (98-107); Estimated GFR-MDRD 86; Globulin 2.7 g/dL (2.4-3.5); Glucose 137 mg/dL (83-110); Potassium 3.5 mmol/L (3.5-5.1); Protein, Total 5.8 g/dL (6.0-8.3); Sodium 135 mmol/L (136-145)
[2018-08-04] MEDS ORDERED: Lidocaine Viscous Sol 2% 15 ml UD Cup ONE (04:13)
[2018-08-04] MEDS ORDERED: Ondansetron ODT 4 MG TAB SL PRN (06:22)
[2018-08-04] MEDS ORDERED: Ondansetron PF 4 MG/2 ML Vial IVP PRN (06:23)
[2018-08-04] MEDS ORDERED: Acetaminophen 1,000 MG in Premix Bag 1 BAG IVPB PRN (08:18)
--- NOTE | 2018-08-04 09:50 | RAD ---
TWO VIEWS ABDOMEN AND ONE VIEW CHEST: 08/04/18 HISTORY: Small bowel obstruction. COMPARISON: None. FINDINGS: Slight elongation of the aorta. Normal cardiac silhouette. Pulmonary vessels are within normal limits . Patchy interstitial opacities. Questionable focal infiltrate in the right lung base. Eventration le ft hemidiaphragm. No pneumothorax or osseous abnormality. ABDOMEN TWO VIEWS: There are air filled loops of small bowel in the epigastric region. No pneumoperitoneum on the uprigh t projection. There are differential air fluid levels. Skin sweta are noted. There is evidence of f ecal material in a nondistended colon. IMPRESSION: 1. Obstruction versus ileus. 2. Focal opacity in the right lung base. Better interrogation with a two view chest radiograph i s recommended. CODE T POS: [facility]
--- NOTE | 2018-08-04 10:37 | RAD ---
RADIOGRAPH ABDOMEN TWO VIEWS: 08/04/2018 8:55 a.m. HISTORY: Followup ileus for a 77-year-old female. COMPARISON: KUB of 02/11/2018 FINDINGS: There are new midline lower skin sweta. A greater degree of centrally located multiple dilated sma ll bowel loops with air-fluid levels is present now, compared to prior study. No colonic dilation. Moderate volume of colonic stool. No pneumoperitoneum identified. An NG tube has been placed, with the distal tip slightly superior to the esophagogastric junction. No gastric distention. IMPRESSION: 1. Abnormal bowel gas pattern, which has the appearance of a small bowel obstruction, but is more li maria fernanda to be ileus, immediately after laparotomy. Followup is recommended. 2. Nasogastric tube. Distal tip is apparently in the distal esophagus. POS: [facility]
--- NOTE | 2018-08-04 11:56 | RAD ---
ABDOMEN 1 VIEW: HISTORY: NG tube placement. FINDINGS: NG tube appears to be in the distal esophagus. Repositioning is recommended. Multiple air-filled pr ominent small bowel loops are noted. IMPRESSION: As above. Results of the study discussed with Dr. Scott 07/25/2018 at 10:14 a.m. CODE SOFIA POS: [facility]
[2018-08-04 12:37] VITALS: BMI 25.9
[2018-08-04] MEDS: Piperacillin/Tazobactam 3.375 GM in Sodium Chloride 0.9% 100 ML IVPB SCH ×3 (12:50→23:30)
[2018-08-04] MEDS: Pantoprazole 40 MG VIAL IVP SCH (12:50)
[2018-08-04] MEDS: Dextrose 5%-Lactated Ringers 1,000 ML IV SCH ×2 (15:00→16:43)
--- NOTE | 2018-08-04 18:13 | HP ---
DATE OF ADMISSION: 08/04/2018 HISTORY OF PRESENT ILLNESS: Kelly Bah is a 77-year-old female, recently hospitalized 07/27/2018 to 08/01/2018 for obstructing diverticular sigmoid stricture. She had complete bowel obstruction. C olonoscopy prior to the procedure documented this. The scope was not able to be passed. Sigmoid col on resection and colostomy performed, mobilization of splenic flexure 08/01/2018. Pathology document ed diverticular stricture without malignancy. The patient was sent home and did well, returned to [facility] emergency room a couple of days ago for some bleeding around her ostomy. She was sent home. She n ow reports with a less than 24-hour history of crampy abdominal pain, distention, nausea, vomiting an d presented to the emergency room. Plain x-rays revealing changes consistent with ileus. She contin ues to pass flatus and stool out of her colostomy. She feels somewhat better. NG tube was placed in the emergency room to about 45 cm. X-rays this morning revealed it is in the mid esophagus. It was advanced to 65 cm and it is still in the upper abdomen. On exam, the patient was noted to have necrotic colostomy, but just a few centimeters deep, the mucos a is healthy. Plan at this time is to revise her colostomy as there is too much of the stoma that is necrotic. Our plan is hopefully with the surface procedure, there is slight redness in the surround ing skin. We will treat her with Zosyn IV. She understands the risks and benefits and consents. We will probably place the NG in the operating room under fluoroscopy. ALLERGIES: MORPHINE causes adverse reactions. TOBACCO: Cessation 10 years ago. ALCOHOL: None. PAST SURGICAL HISTORY: Bilateral mastectomies for benign disease, reconstruction and subsequent beni al of implants, some sort of flap reconstruction, probably a TRAM flap from her lower abdomen, right hip ORIF, history of pelvic fracture without surgery, total abdominal hysterectomy with bilateral sa lpingo-oophorectomy over 2 operations, appendectomy during her hysterectomy. PAST MEDICAL HISTORY: COPD, tobacco cessation 10 years ago, hypertension, although medication discon tinued due to lower blood pressure. Stress test earlier this year was normal. 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 Dr. Gonzalez performed an upper endoscopy earlier this year that peptic ulcer disease. She zimmer s been on PPIs. REVIEW OF SYSTEMS: Ten point noncontributory. SOCIAL HISTORY: The patient lives with her son in [place]. 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 MEDICATIONS: Tramadol, aspirin, Spiriva, , Zocor, senna, Zantac, Motrin, Ultram, Tylenol. PHYSICAL EXAMINATION: VITAL SIGNS: Height 5 feet 7 inches, 165 pounds, 25 BMI. HEENT: Unremarkable. LUNGS: Clear to auscultation. CARDIAC: Regular rate and rhythm without murmur or gallop. ABDOMEN: Distended and tympanitic. No guarding. Surgical incision midline, well healed. Colostomy with circumferential necrotic mucosa. Just a few centimeters from the stoma, mucosa is healthy. ASSESSMENT AND PLAN: 1. Necrotic colostomy. Plan revision today for surface should not need a laparotomy. 2. Chronic obstructive pulmonary disease, tobacco cessation 10 years ago. 3. Ileus. Continue NG tube. Advance in proper position. She is making stool and gas in her colost lyric. Hopefully, this will resolve soon. We will repeat abdominal x-rays tomorrow. Dr. Salmeron is cov ering. We will advance her diet as tolerated pending resolution of her tympany.
[2018-08-04] MEDS: Ipratropium Bromide 2.5 ml Neb NEB SCH (18:51)
[2018-08-04] MEDS: Lactated Ringer's 1,000 ML IV SCH (19:54)
[2018-08-04] MEDS: Enoxaparin Sodium 40 MG/0.4 ML SYRINGE SC SCH (19:57)
--- NOTE | 2018-08-04 20:51 | RAD ---
SUPINE KUB: 08/04/18 at 5:48 p.m. COMPARISON: 08/04/18 at 10 a.m. HISTORY: Evaluate nasogastric tube placement. FINDINGS: Nasogastric tube extends into the upper abdomen, curling in the region of the left upper quadrant and terminating in the expected location of the proximal duodenum. Bowel gas pattern is stable with mild gaseous distention of central small bowel. Supine imaging limits assessment for bowel obstruction an d free intraperitoneal air. Vertically oriented cutaneous sweta are present. IMPRESSION: Nasogastric tube as detailed above. POS: [facility]
[2018-08-05] MEDS: Ipratropium Bromide 2.5 ml Neb NEB SCH ×4 (00:49→19:38)
[2018-08-05] MEDS: Lactated Ringer's 1,000 ML IV SCH ×2 (05:09→14:54)
[2018-08-05] MEDS: Piperacillin/Tazobactam 3.375 GM in Sodium Chloride 0.9% 100 ML IVPB SCH ×2 (05:09→13:20)
[2018-08-05] MEDS ORDERED: Midazolam HCl 5 mg/5 ml Vial ONE (05:24)
[2018-08-05 05:34] LABS: #Basophils 0.1 thou/uL (0.0-0.2); #Eosinphils 0.6 thou/uL (0.0-0.7); #Lymphocytes 2.3 thou/uL (1.20-3.40); #Monocytes 0.7 thou/uL (0.11-0.59); #Neutrophils 4.6 thou/uL (1.40-6.50); %Basophils 0.7 % (0.0-1.0); %Eosinophils 7.7 % (0.0-10.0); %Lymphocytes 27.4 % (21.0-51.0); %Monocytes 8.4 % (0.0-10.0); %Neutrophils 55.8 % (42.0-75.0); Hemoglobin 9.8 g/dL (12.0-16.0); Mean Corpuscular HGB CONC 32.7 g/dL (32.0-36.0); Mean Corpuscular Hemoglobin 29.2 pg (27.0-31.0); Mean Corpuscular Volume 89.2 fL (78.0-98.0); Mean Platelet Volume 6.8 fL (7.4-10.4); Platelet Count 370 thou/uL (130-400); RBC Distribution Width 12.8 % (11.5-14.5); Red Blood Cell (RBC) Count 3.36 mill/uL (4.20-5.40); White Blood Cell (WBC) Count 8.3 thou/uL (4.8-10.8)
[2018-08-05 05:47] LABS: ALT (SGPT) 16 U/L (8-55); AST (SGOT) 16 U/L (5-34); Albumin 2.7 g/dL (3.4-4.8); Alkaline Phosphatase 90 U/L (40-150); Anion Gap 9 mmol/L (10-20); BUN (Urea Nitrogen) 4 mg/dL (9.8-20.1); Bilirubin, Total 0.5 mg/dL (0.2-1.2); Calc. Creatinine Clearance 92 mL/min (70-130); Calcium 8.2 mg/dL (7.8-10.44); Carbon Dioxide 27 mmol/L (23-31); Chloride 105 mmol/L (98-107); Estimated GFR-MDRD Greater than 90; Globulin 2.2 g/dL (2.4-3.5); Glucose 98 mg/dL (83-110); Potassium 3.4 mmol/L (3.5-5.1); Protein, Total 4.9 g/dL (6.0-8.3); Sodium 138 mmol/L (136-145)
[2018-08-05] MEDS ORDERED: Fentanyl 100 MCG/2 ML VIAL ONE ×3 (07:21→09:08)
[2018-08-05] MEDS ORDERED: Bupivacaine PF 0.5% 30 ML VIAL ONE (07:39)
[2018-08-05] MEDS ORDERED: Phenylephrine HCL 10 MG/ML VIAL ONE (07:42)
[2018-08-05] MEDS: Pantoprazole 40 MG VIAL IVP SCH (08:08)
[2018-08-05] MEDS ORDERED: Ibuprofen 600 MG TAB PO PRN (08:08)
[2018-08-05] MEDS ORDERED: traMADol HCl 50 MG TAB PO PRN (08:08)
[2018-08-05] MEDS ORDERED: Acetaminophen 500 MG TAB PO PRN (08:08)
[2018-08-05] MEDS ORDERED: Potassium Chloride 20 MEQ TAB PO SCH (08:15)
[2018-08-05] MEDS ORDERED: Promethazine HCl 25 MG/ML VIAL IM PRN (08:36)
[2018-08-05] MEDS ORDERED: Promethazine HCl 25 MG/ML VIAL SLOW IVP PRN (08:36)
[2018-08-05] MEDS ORDERED: Promethazine HCl 25 MG/ML VIAL ONE (08:53)
[2018-08-05] MEDS ORDERED: Ondansetron ODT 8 MG TAB PO PRN (09:26)
--- NOTE | 2018-08-05 10:07 | PRG ---
DATE OF SERVICE: 08/05/2018 SUBJECTIVE: Kelly Bah is doing well today. Colostomy revision postponed yesterday because of operating room delays and inadequate staffing. Gas tric drainage 950 mL after NG tube properly placed. The patient has had stool and gas out of her col ostomy bag. She has slight discomfort in her upper abdomen. OBJECTIVE: VITAL SIGNS: Temperature 97.7, pulse 78, respiratory rate 24, blood pressure 149/80. LUNGS: Clear to auscultation. CARDIAC: Regular rate and rhythm without murmur or gallop. ABDOMEN: Soft, nontympanitic, colostomy, stool and flatus in the bag. LABORATORY DATA: White count 8, hemoglobin 9.8. Basic metabolic profile normal. Potassium 3.4. ASSESSMENT AND PLAN: The patient seems to be doing well. We will plan colostomy revision today. We will plan removal of sweta and Steri-Strip her wound. Postoperatively, we will have her NG tube o ut, advance her diet slowly, probably place her on clear to full liquids today as tolerated. Dr. Anuel wilson will see her tomorrow in rounds. Anticipate possible discharge home in 24-48 hours pending her cl inical course.
[2018-08-05] MEDS: Senokot 8.6 MG TAB PO SCH ×2 (10:32→20:50)
[2018-08-05] MEDS: Acetaminophen 500 MG TAB PO SCH ×3 (10:32→20:50)
[2018-08-05] MEDS: Famotidine 20 MG TAB PO SCH ×2 (10:32→20:50)
--- NOTE | 2018-08-05 11:32 | RAD ---
RADIOGRAPH ABDOMEN 2 VIEWS: Date: 08/05/18 Time: 1025 hours HISTORY: 77-year-old female follow-up ileus. COMPARISON: 08/04/18 at 1748 hours. FINDINGS: The NG tube has been removed. Midline skin sweta have been removed. Mild gaseous distention of mult iple small bowel loops centrally located in the abdomen. This has slightly improved. No evidence of p neumoperitoneum. No differential air fluid levels. IMPRESSION: 1. Interval improvement in the abnormal bowel gas pattern, probably representing ileus. 2. Interval removal of nasogastric tube. POS: [facility]
[2018-08-05] MEDS ORDERED: PHENYLEPHRINE-NS 100 MCG/ML 10 ML SYRINGE ONE (13:06)
[2018-08-05] MEDS ORDERED: Lidocaine 1% PF 5 ML VIAL ONE (13:06)
[2018-08-05] MEDS ORDERED: Succinylcholine Chloride 20 MG/ML 10 ml SYRINGE FS ONE (13:06)
[2018-08-05] MEDS ORDERED: PROPOFOL 200 MG/20 ML VIAL ONE (13:06)
[2018-08-05] MEDS ORDERED: Glycopyrrolate 0.2 MG/ML 5 ML SYRINGE ONE (13:06)
[2018-08-05] MEDS: Ketorolac Tromethamine 30 MG/ML VIAL IVP PRN ×2 (13:28→18:46)
[2018-08-05] MEDS: traMADol HCl 50 MG TAB PO SCH ×2 (13:28→17:28)
--- NOTE | 2018-08-05 14:18 | OP ---
DATE OF PROCEDURE: 08/05/2018 PREOPERATIVE DIAGNOSIS: Ischemic colon after Vane's procedure for diverticular stricture/obstruc tion eight days ago. POSTOPERATIVE DIAGNOSIS: Ischemic colon after Vane's procedure for diverticular stricture/obstru ction eight days ago. PROCEDURE: Colostomy revision. SURGEON: Dr. Jeremy Scott. ANESTHESIA: General (removal of sweta, Mastisol and Steri-Strips applied). PROCEDURE IN DETAIL: Patient was taken to the operating room where under general anesthesia, abdomen and colostomy were prepared with Betadine, draped in routine fashion. Sweta removed. Mastisol an d Steri-Strips applied. This was with a towel. Old colostomy sutures were taken down. The co lostomy mobilized digitally, manually from its tunnel site. The gangrenous into the colon was resect ed and colostomy maturation undertaken with four sutures of 3-0 Vicryl and simple sutures of 3- 0 Vicryl completing colostomy maturation and ostomy appliance applied.
[2018-08-05] MEDS: Enoxaparin Sodium 40 MG/0.4 ML SYRINGE SC SCH (20:51)
[2018-08-05] MEDS: Atorvastatin Calcium 20 MG TAB PO SCH (20:51)
[2018-08-05] MEDS: Aspirin 81 mg Enteric Coated Tablet PO SCH (20:51)
[2018-08-06] MEDS: traMADol HCl 50 MG TAB PO SCH ×4 (00:07→13:54)
[2018-08-06] MEDS: Ipratropium Bromide 2.5 ml Neb NEB SCH ×4 (00:39→18:42)
[2018-08-06] MEDS: Lactated Ringer's 1,000 ML IV SCH ×2 (03:07→08:32)
[2018-08-06] MEDS: Acetaminophen 500 MG TAB PO SCH ×4 (04:07→21:46)
[2018-08-06 04:58] LABS: Anion Gap 9 mmol/L (10-20); BUN (Urea Nitrogen) 8 mg/dL (9.8-20.1); Calc. Creatinine Clearance 77 mL/min (70-130); Calcium 8.3 mg/dL (7.8-10.44); Carbon Dioxide 27 mmol/L (23-31); Chloride 100 mmol/L (98-107); Estimated GFR-MDRD 81; Glucose 97 mg/dL (83-110); Sodium 132 mmol/L (136-145)
[2018-08-06] MEDS: Famotidine 20 MG TAB PO SCH ×2 (08:29→21:45)
[2018-08-06] MEDS: Senokot 8.6 MG TAB PO SCH ×2 (08:29→21:45)
--- NOTE | 2018-08-06 15:00 | PRG ---
DATE OF SERVICE: 08/06/2018 PRIMARY SURGEON: Dr. Jeremy Scott. SUBJECTIVE: Ms. Bah is postop day #1 from a colostomy revision after ischemic colon following Serrano licea's procedure for diverticular stricture and obstruction 8 days ago. Patient is sitting up in bed , doing well, wanting to advance her diet. She is voiding and not having bowel movement since yester day. Pain is controlled. Surgery site looks well. Patient is afebrile overnight. OBJECTIVE: VITAL SIGNS: Temperature is 98.9, blood pressure 132/75, heart rate is 88, breathing 16 times per mi nute on room air. She is satting 95%. GENERAL: This is a 77-year-old female sitting up in bed in no acute distress. HEENT: Normocephalic, atraumatic. NECK: Trachea is midline. LUNGS: Equal rise and fall. No respiratory distress. CARDIOVASCULAR: Regular rate and rhythm. Strong pulses. ABDOMEN: Surgical scar and colostomy are noted. Good margins with primary closure. No erythema and mild tenderness with palpation. MUSCULOSKELETAL: Patient moves all extremities. PSYCHIATRIC: Normal mood and affect. NEUROLOGIC: Alert and oriented to person, place, time, and event. SKIN: [place], warm and dry. LABORATORY DATA: Today sodium is 132, potassium is 4.0, chloride is 100, CO2 is 27, creatinine 0.70 and a BUN of 8. Glucose is 97. ASSESSMENT: 1. Postoperative day #1, status post colostomy revision. 2. Hyponatremia, likely acute on chronic. PLAN: 1. Given the patient's slight abdominal pain, we will advance her diet and continue to monitor her h ere. We will repeat a BMP in the morning for hyponatremia. 2. Continue all other supportive care. 3. Encourage IS and ambulation. 4. We have updated the patient at the bedside and answered all questions. The patient was seen by Paolo Salmeron.
[2018-08-06] MEDS: Calcium Carbonate 500 MG ChewTAB PO PRN ×2 (17:19→21:54)
[2018-08-06] MEDS: Atorvastatin Calcium 20 MG TAB PO SCH (21:45)
[2018-08-06] MEDS: Aspirin 81 mg Enteric Coated Tablet PO SCH (21:46)
[2018-08-06] MEDS: Ketorolac Tromethamine 30 MG/ML VIAL IVP PRN (21:57)
[2018-08-06] MEDS: Enoxaparin Sodium 40 MG/0.4 ML SYRINGE SC SCH (21:59)
[2018-08-07] MEDS: Ipratropium Bromide 2.5 ml Neb NEB SCH ×4 (00:21→18:41)
[2018-08-07] MEDS: Lactated Ringer's 1,000 ML IV SCH ×3 (01:16→19:39)
[2018-08-07] MEDS: traMADol HCl 50 MG TAB PO SCH ×4 (01:17→19:23)
[2018-08-07] MEDS: Acetaminophen 500 MG TAB PO SCH ×3 (02:55→15:30)
[2018-08-07] MEDS: Famotidine 20 MG TAB PO SCH (08:50)
[2018-08-07] MEDS: Senokot 8.6 MG TAB PO SCH (08:50)
[2018-08-07] MEDS ORDERED: ISOVUE-370 76%-LOCM 1 ML ONE (11:01)
[2018-08-07] MEDS ORDERED: Iopamidol 370 76% 50 ML VIAL FS ONE (11:01)
[2018-08-07] MEDS ORDERED: Metoclopramide HCl 10 MG/2 ML VIAL IVP SCH (11:30)
--- NOTE | 2018-08-07 11:47 | PRG ---
DATE OF SERVICE: 08/07/2018 Ms. Bah is doing fairly well. She had vomiting last night and has been only taking liquids today. PHYSICAL EXAMINATION: VITAL SIGNS: Temperature 98 degrees, 88, 113/75. LABORATORY: Last laboratories were yesterday; sodium was 132, otherwise. Base met unremarkable. Tw o days ago, white count 8, hemoglobin 9.8. LUNGS: Clear. CARDIAC: Regular rate and rhythm without murmur or gallop. ABDOMEN: Soft, slightly distended, slight fullness around the colostomy site. Midline wound. Steri -Strips in place. ASSESSMENT AND PLAN: The patient complains of nausea and vomiting last night related to a particular meal that she ate although her abdomen is slightly protuberant. She complains of discomfort in her peristomal area, left upper abdomen. We will obtain CT scan of abdomen and pelvis, start her back on IV fluids and await results of the scanning.
[2018-08-07] MEDS: Dextrose 5 % And 0.9 % NaCl 1,000 ML IV SCH (12:17)
[2018-08-07 12:27] LABS: ALT (SGPT) 16 U/L (8-55); AST (SGOT) 13 U/L (5-34); Alkaline Phosphatase 120 U/L (40-150); Anion Gap 8 mmol/L (10-20); BUN (Urea Nitrogen) 9 mg/dL (9.8-20.1); Bilirubin, Total 0.7 mg/dL (0.2-1.2); Calc. Creatinine Clearance 76 mL/min (70-130); Carbon Dioxide 29 mmol/L (23-31); Chloride 95 mmol/L (98-107); Estimated GFR-MDRD 79; Glucose 116 mg/dL (83-110); Potassium 3.8 mmol/L (3.5-5.1); Sodium 128 mmol/L (136-145)
--- NOTE | 2018-08-07 17:49 | CT ---
ABDOMEN CT WITH CONTRAST PELVIC CT WITH CONTRAST: History: Status post colon resection one week ago. Post op vomiting and abdominal distention. Comparison: 07-27-18 FINDINGS: CT ABDOMEN: Chronic changes in the lung bases. Portal vein is patent. Stable hypoattenuation of the liver. Spleen, pancreas, and right adrenal gland are unremarkable. Stab le nodule in the left adrenal gland measuring 1.4 x 1.1 cm. No gastrohepatic, retrocrural, or periportal lymphadenopathy. No mesenteric mass, lymphadenopathy or free air. There is free fluid in both pericolic gutters. Free fluid tracks along into the pelvis. Interval partial resection of the colon. Sorto's pouch is noted. There are multiple contrast and fl uid filled distended loops of small bowel involving the duodenum, jejunum, and proximal ileum. The di stal ileal loops are decompressed. Differential considerations include an early or partial obstructio n versus ileus. The ileo thecal junction is normal. Cecum, ascending colon, and transverse colon are unremarkable. There is an ostomy in the left lower quadrant. PELVIC CT: There is free fluid in the pelvis. No pelvic mass, lymphadenopathy, or free air. Old right inferior pubic ramus fracture. No lytic or blastic lesions in the osseous structures. Right hip internal fixation hardware is noted. IMPRESSION: Contrast in fluid filled loops of small bowel. Findings may be an obstructive process or ileus. Corey nued surveillance. Post-operative findings compatible findings with a partial left colonic obstructio n. There is an colostomy in the left lower quadrant. Sorto's pouch is noted in the pelvis. POS: [facility]
[2018-08-07] MEDS ORDERED: Ketorolac Tromethamine 30 MG/ML VIAL IVP PRN (20:47)
[2018-08-07] MEDS ORDERED: Acetaminophen 1,000 MG in Premix Bag 1 BAG IVPB PRN (20:47)
[2018-08-07] MEDS ORDERED: Ondansetron PF 4 MG/2 ML Vial IVP PRN (20:47)
[2018-08-07] MEDS: Enoxaparin Sodium 40 MG/0.4 ML SYRINGE SC SCH (22:16)
[2018-08-08] MEDS: Ipratropium Bromide 2.5 ml Neb NEB SCH ×4 (00:45→19:04)
[2018-08-08] MEDS: Dextrose 5 % And 0.9 % NaCl 1,000 ML IV SCH ×3 (04:11→16:56)
[2018-08-08 05:45] LABS: #Eosinphils 0.4 thou/uL (0.0-0.7); #Lymphocytes 1.4 thou/uL (1.20-3.40); #Monocytes 0.6 thou/uL (0.11-0.59); #Neutrophils 8.5 thou/uL (1.40-6.50); %Basophils 0.2 % (0.0-1.0); %Eosinophils 3.9 % (0.0-10.0); Hemoglobin 10.7 g/dL (12.0-16.0); Mean Corpuscular HGB CONC 31.5 g/dL (32.0-36.0); Mean Corpuscular Hemoglobin 28.7 pg (27.0-31.0); Mean Corpuscular Volume 91.4 fL (78.0-98.0); Mean Platelet Volume 6.8 fL (7.4-10.4); Platelet Count 579 thou/uL (130-400); RBC Distribution Width 12.8 % (11.5-14.5); White Blood Cell (WBC) Count 10.9 thou/uL (4.8-10.8)
[2018-08-08] MEDS: Pantoprazole 40 MG VIAL IVP SCH (08:15)
--- NOTE | 2018-08-08 08:35 | RAD ---
CHEST ONE VIEW ABDOMEN TWO VIEWS: History: 77-year-old female with history of ileus. Comparison: 08-04-18 FINDINGS: Minimal patchy parenchymal changes in the right lower lung, stable from prior study. Left chest is cl ear. Heart size is normal. There are persistently abnormally dilated loops of small bowel with some a ir fluid levels. Previously noted midline sweta have been removed. IMPRESSION: Persistently abnormally dilated small bowel loops with air fluid levels. These loops have not improve d and if anything, maybe slightly more dilated than on the prior study. Continued short term follow u p. POS: [facility]
[2018-08-08] MEDS ORDERED: MD-Gastroview 120 ML BOT ONE (11:50)
--- NOTE | 2018-08-08 15:15 | PRG ---
DATE OF SERVICE: 08/08/2018 SUBJECTIVE: Kelly Bah today denies having nausea or vomiting. She has had very little ostomy ou tput since she has been on ice chips only. She, however, is not having nausea or vomiting or cramps. She states her abdomen is normal size, although when I examined, I appreciated slight tympany. Abd ominal x-rays this morning reveal a few air fluid levels, but there is gas and stool in her colon. OBJECTIVE: LUNGS: Clear to auscultation. CARDIAC: Regular rate and rhythm without murmur or gallop. ABDOMEN: Soft, slightly distended, slightly tympanitic, but soft. LABORATORY DATA: Sodium 128, potassium 3.8. BUN and creatinine are normal. White count 10, hemoglo bin 10. ASSESSMENT AND PLAN: Partial small-bowel obstruction, postoperative now 11 days postoperative. Woul d like to avoid an operation. Her midline incision well healed, sweta out. Colostomy had been rev ised in this hospitalization due to gangrene just locally. The colostomy site is doing well. I disc ussed with the patient and at this time, she does not need an NG tube. We would plan to do a small b owel follow through and if this results in nausea and vomiting and a partial obstruction, then we wou ld need to place a PICC line tomorrow, initiate TPN. We will consult dietary in case that is needed. Dr. Buchanan is covering over the next few days.
--- NOTE | 2018-08-08 19:02 | RAD ---
SMALL BOWEL FOLLOW THROUGH: 08/08/18 CLINICAL HISTORY: Small bowel obstruction. FINDINGS: Two hours of radiographic imaging performed subsequent to ingestion of radiopaque contrast. On the tw o hour image, there is evidence of contrast within the colon. The small bowel is dilated. IMPRESSION: Dilated small bowel with passage of contrast through the colon by two hours. This indicates a low gra de/partial obstruction. POS: [facility]
[2018-08-08] MEDS: Enoxaparin Sodium 40 MG/0.4 ML SYRINGE SC SCH (19:56)
[2018-08-09] MEDS: Ipratropium Bromide 2.5 ml Neb NEB SCH ×4 (00:45→19:23)
[2018-08-09] MEDS: Dextrose 5 % And 0.9 % NaCl 1,000 ML IV SCH (05:42)
[2018-08-09] MEDS: Ketorolac Tromethamine 30 MG/ML VIAL IVP PRN (06:25)
[2018-08-09] MEDS: Pantoprazole 40 MG VIAL IVP SCH (09:35)
--- NOTE | 2018-08-09 10:04 | PRG ---
DATE OF SERVICE: 08/09/2018 SUBJECTIVE: Ms. Bah is doing well. She has had lots of colostomy bag output after the Gastrografi n small bowel follow-through. She is on a liquid diet without difficulty. She is ambulatory. OBJECTIVE: She is afebrile. Vital signs are stable. Her abdomen is soft. Her wound is well healed . Ostomy bag has some loose stool. ASSESSMENT: Postoperative left colectomy with colostomy; prolonged ileus, now improved; Gastrografin small bowel follow-through showed dilated intestine, but good passage yesterday. PLAN: Advance to GI soft diet. Hep-Lock IV. Probably home in the next few days.
--- NOTE | 2018-08-09 10:54 | RAD ---
ABDOMEN 2 VIEWS: HISTORY: Small bowel obstruction. COMPARISON: Abdomen 2 views 08/05/2018. FINDINGS: There is oral contrast within the colon. There are still a few air fluid levels in the mid abdomen i n the small bowel with distended loops of small bowel. No free air under the hemdiaphragms. Lung bases are clear. IMPRESSION: 1. Orally administered contrast now within the large bowel which notes a lack of a high-grade small bowel obstruction. 2. Likely a low-grade obstruction versus ileus in the mid abdomen. POS: [facility]
[2018-08-09] MEDS ORDERED: Ibuprofen 600 MG TAB PO SCH (14:00)
[2018-08-09] MEDS: traMADol HCl 50 MG TAB PO PRN (15:28)
[2018-08-09] MEDS: Enoxaparin Sodium 40 MG/0.4 ML SYRINGE SC SCH (20:36)
[2018-08-10] MEDS: Ipratropium Bromide 2.5 ml Neb NEB SCH ×4 (00:13→19:35)
--- NOTE | 2018-08-10 08:49 | PRG ---
DATE OF SERVICE: 08/10/2018 SUBJECTIVE: Ms. Bah is doing well. She is concerned about less output from her colostomy, thought that maybe her colostomy had retracted somewhat, but no significant pain. She is ambulatory. OBJECTIVE: VITAL SIGNS: She is afebrile. Vital signs are stable. ABDOMEN: Soft, nontender. Wounds were well healed. Colostomy site looks intact. There is a small amount of stool in the bag. ASSESSMENT: Postoperative recurrent ileus after a colectomy and colostomy. PLAN: I reinforced that the mucosa for the colostomy is going to change in terms of how much reverse out based on the level of her abdominal distention, but this rarely causes obstruction. She likely will have decreased output in the next day or two since she had basically a Gastrografin small bowel follow through, which clean her out. Plans are for her to be discharged home tomorrow.
[2018-08-10] MEDS: Pantoprazole 40 MG VIAL IVP SCH (10:43)
[2018-08-10] MEDS: Enoxaparin Sodium 40 MG/0.4 ML SYRINGE SC SCH (21:37)
[2018-08-10] MEDS: traMADol HCl 50 MG TAB PO PRN (21:40)
[2018-08-11] MEDS: Ipratropium Bromide 2.5 ml Neb NEB SCH ×2 (00:18→06:35)
[2018-08-11 07:46] VITALS: TEMP 97.8
--- NOTE | 2018-08-11 10:20 | RAD ---
ABDOMEN 2 VIEWS: HISTORY: Abdominal pain. COMPARISON: 08/09/2018. FINDINGS: Contrast material is present within the nondilated colon. Gaseous distention of the small bowel with in the right abdomen is less pronounced than on the prior study. No confluent airspace consolidation or evidence of free subdiaphragmatic gas. Calcified granulomata over the spleen. Internal fixation right hip partially visualized. IMPRESSION: 1. Interval decrease in degree of gaseous distention of the small bowel. Contrast within the colon argues against a significant small bowel obstruction. 2. No new abnormalities are evident. POS: [facility]
--- NOTE | 2018-08-11 10:40 | PRG ---
DATE OF SERVICE: 08/11/2018 SUBJECTIVE: Ms. Bah is doing better today. She is tolerating her GI soft diet. She is somewhat c oncerned about lack of much colostomy output, although she is passing lots of gas. OBJECTIVE: GENERAL: She is afebrile. VITAL SIGNS: Stable. ABDOMEN: Soft, nontender. She has active bowel sounds. Her wound is well healed. The Steri-Strips are removed because they are barely holding on. IMAGING: X-rays this morning show no significant obstruction. There is air in the colon. ASSESSMENT: Resolving ileus after left colectomy. PLAN: Home today. Encouraged low residue diet. If she does not have much bowel function in the nex t few days, I said she could take some Milk of Magnesia, should follow up with Dr. Scott in next shaniqua turner
[2018-08-11 12:04] VITALS: BP 119/73
== END 2018-08-11 13:43 | disposition home or self-care (01) | DRG 347 ==
LOC: ERS 02:26 → SURG A 04:07 → ERS 06:08
PROVIDERS: ADMIT Specialist; ATTEND Specialist
PROC: 0WQFXZ2 Repair Abdominal Wall, Stoma, External Approach (ICD-10-PCS; principal; 2018-08-05)
PROC: 0DB Gastrointestinal System, Excision (ICD-10-PCS; 2018-08-05)
DX: K94.09 Other complications of colostomy (principal); K55.049 Acute infarction of large intestine, extent unspecified; K56.7 Ileus, unspecified; Y83.3 Surgical operation with formation of external stoma as the cause of abnormal reaction of the patient, or of later complication, without mention of misadventure at the time of the procedure; J44.9 Chronic obstructive pulmonary disease, unspecified; Z87.891 Personal history of nicotine dependence
CPT/HCPCS: 36415; 74018; 74019; 74022; 74177; 74250; 80048; 80053; 82550; 85025; 94640; 96360; 99283; C9113; J0131; J1650; J1885; J2001; J2250; J2370; J2405; J2543; J2550; J2704; J2765; J3010; J7050; Q0162; S0020

== ENCOUNTER 2018-08-12 13:37 | Inpatient (IN) | payer MEDICARE ==
[~2018-08-12 13:37] MED LIST changes: +ISOVUE-370 76%-LOCM 1 ML ONE; -Iopamidol 370 76% 100 ML VIAL ONE; -Iopamidol 370 76% 50 ML VIAL FS ONE
[2018-08-12 14:13] LABS: Hemoglobin 10.9 g/dL (12.0-16.0); Mean Corpuscular HGB CONC 32.9 g/dL (32.0-36.0); Mean Corpuscular Hemoglobin 29.4 pg (27.0-31.0); Mean Corpuscular Volume 89.2 fL (78.0-98.0); Mean Platelet Volume 6.3 fL (7.4-10.4); Platelet Count 806 thou/uL (130-400); RBC Distribution Width 12.9 % (11.5-14.5); Red Blood Cell (RBC) Count 3.71 mill/uL (4.20-5.40); White Blood Cell (WBC) Count 18.3 thou/uL (4.8-10.8)
[2018-08-12] MEDS ORDERED: Ondansetron PF 4 MG/2 ML Vial ONE (14:26)
[2018-08-12] MEDS ORDERED: Fentanyl 100 MCG/2 ML VIAL ONE ×2 (14:26→17:45)
[2018-08-12 14:34] LABS: ALT (SGPT) 12 U/L (8-55); AST (SGOT) 25 U/L (5-34); Albumin 3.2 g/dL (3.4-4.8); Alkaline Phosphatase 122 U/L (40-150); Anion Gap 16 mmol/L (10-20); BUN (Urea Nitrogen) 10 mg/dL (9.8-20.1); Band 1 % (5-11); Bilirubin, Total 0.3 mg/dL (0.2-1.2); CK (CPK) 24 U/L (29-168); Calc. Creatinine Clearance 0 mL/min (70-130); Calcium 8.8 mg/dL (7.8-10.44); Carbon Dioxide 20 mmol/L (23-31); Chloride 99 mmol/L (98-107); Eosinophils 1 % (0-10); Estimated GFR-MDRD 90; Globulin 3.4 g/dL (2.4-3.5); Glucose 116 mg/dL (83-110); Lymphocytes 6 % (21-51); MDiff Complete? YES; Monocytes 5 % (0-10); Neutrophil 87 % (42-75); PLT Morphology Comment Appears Increased; Potassium 4.7 mmol/L (3.5-5.1); Protein, Total 6.6 g/dL (6.0-8.3); Sodium 130 mmol/L (136-145)
[2018-08-12] MEDS ORDERED: MEROPENEM 1 GM/50 ML 1 GM in Premix Bag 1 BAG IVPB SCH (14:45)
[2018-08-12 14:52] LABS: CKMB 0.6 ng/mL (0-6.6); Troponin I Less than 0.010 ng/mL (< 0.028)
[2018-08-12 16:12] LABS: Bilirubin Negative (Negative); Blood, Urine Small (Negative); Clarity CLEAR (Clear); Glucose, Urine (Dipstick) Negative (Negative); Leukocyte Negative (Negative); Nitrite Negative (Negative); Protein, Urine (Dipstick) Negative (Neg-Trace); Specific Gravity, Urine 1.024 (1.002-1.036); Urobilinogen 0.2 mg/dL (0.2-1.0); pH, Urine 7.5 (5.0-9.0)
[2018-08-12 16:15] LABS: Bacteria/HPF None Seen HPF (None Seen); Hyaline Casts/LPF 0-3 HYALINE CAST LPF (0-3 Hyaline); Pathc Cast-AUWi Flag 0.14 (0-2.49); Squamous Epithelial None Seen HPF (0-3); WBC/HPF 0-3 HPF (0-3)
--- NOTE | 2018-08-12 17:31 | RAD ---
CHEST ONE VIEW: 08/12/18 COMPARISON: 07/30/18. HISTORY: Dyspnea. FINDINGS: Atherosclerosis of the aorta. Normal cardiac silhouette. Pulmonary vessels are within normal limits. Costophrenic angles are clear. Chronic changes, without consolidation or mass. No pneumothorax. Ther e is no osseous abnormalities. IMPRESSION: Atherosclerosis. No acute cardiopulmonary process. POS: [facility]
[2018-08-12] MEDS ORDERED: Ondansetron PF 4 MG/2 ML Vial IVP PRN (18:33)
[2018-08-12] MEDS ORDERED: Promethazine HCl 25 MG/ML VIAL IM PRN (18:33)
[2018-08-12] MEDS ORDERED: Acetaminophen 1,000 MG in Premix Bag 1 BAG IVPB PRN (18:33)
[2018-08-12] MEDS ORDERED: Dextrose 5% in Water 1,000 ML IV PRN (18:33)
[2018-08-12] MEDS ORDERED: hydrALAZINE 20 MG/ML VIAL SLOW IVP PRN (18:33)
[2018-08-12] MEDS ORDERED: Dextrose 50% Abboject 50 ML SYRINGE SLOW IVP PRN (18:33)
--- NOTE | 2018-08-12 18:33 | CT ---
ABDOMEN CT WITH CONTRAST PELVIC CT WITH CONTRAST 08/12/18 COMPARISON: 08/07/18 HISTORY: Resection one week ago. Postoperative vomiting and abdominal distention. FINDINGS: ABDOMEN CT: Lung bases are clear. Heart size is normal. No significant pericardial fluid. The visualized aorta h as a normal caliber. There is atherosclerosis. No periaortic fat stranding. Unremarkable gallbladder. Portal vein is patent. Stable hypodensities in the liver. Spleen, pancreas and right adrenal gland are unremarkable. Redemon stration of a nodule associated with the left adrenal gland, unchanged. No gastrohepatic, retrocrural or periportal lymphadenopathy. There is a small amount of fluid in both pericolic gutters. There is an ostomy in the left lower quadrant. There is edema in the subcutaneous fat along the ostomy site, likely representing postoperative change. No mesenteric mass, lymphadenop athy or free air. Limited evaluation of the alimentary canal by the lack of oral contrast. Gastric mucosa, duodenum and multiple normal caliber small bowel loops are noted. There is some stranding of the fat in the left lower quadrant. The small bowel loops do have some components of fecalization. However, there is no e vidence of significant small bowel distention. Ileocecal junction is normal. Appendix is not apprecia enrique. Nonspecific fluid at the cecal apex. There is evidence of diverticulosis. No evidence of diverti culitis. There is partial resection of the left colon. Sorto's pouch is again identified. CT PELVIS: Urinary bladder is unremarkable. The amount of fluid in the pelvis has decreased. The fluid that is p resent appears to be more loculated and the periphery of the fluid collection has somewhat more incre ased enhancement. No evidence of air within the pelvic fluid. No lytic or blastic lesions in the osseous structures. IMPRESSION: 1. Fecalization of some loops of small bowel is nonspecific. Bowel loops are neither distended n or dilated. 2. Decreased fluid in the pelvis. The fluid that remains does have some evidence of loculation w ith increased peripheral enhancement. There is no evidence of air. Findings may represent resolving postoperative fluid. Continues surveillance and general surgical consultation is recommended. The flu id collection is not amenable to percutaneous drainage. POS: [facility]
[2018-08-12] MEDS ORDERED: Milk Of Magnesia 30 ML UDCUP PO SCH (18:45)
[2018-08-12] MEDS ORDERED: Piperacillin/Tazobactam 3.375 GM in Sodium Chloride 0.9% 100 ML IVPB SCH (19:00)
--- NOTE | 2018-08-12 19:20 | HP ---
DATE OF ADMISSION: 08/12/2018 This is a patient of Dr. Scott. She is being readmitted for fevers. HISTORY OF PRESENT ILLNESS: This is a 77-year-old female who presents with fevers and rapid heart ra te, just did not feel well today. I had just discharged her home. She was tolerating regular diet, having good output into her colostomy and had normal labs. She now feels worse. She is being admitt ed. CT scan shows a complex fluid collection in her pelvis. She has not had much stool in her bag s lori she left the hospital. CT also shows a lot of stool in the right side of her colon. PAST MEDICAL HISTORY: Hyperlipidemia. PAST SURGICAL HISTORY: Vane's procedure, left colectomy with colostomy, colostomy revision by Dr Vida Scott. She was readmitted for ileus after that surgery once before and was just discharged home 2 days ago. ALLERGIES: OPIOIDS and MORPHINE. MEDICINES: ____. REVIEW OF SYSTEMS: Otherwise, negative. PHYSICAL EXAMINATION: VITAL SIGNS: Pulse is 115, her blood pressure is 114/87. She is afebrile. LUNGS: Clear. HEART: Regular rate and rhythm. ABDOMEN: Soft. It is minimally distended. There is tenderness around the colostomy. No guarding o r rebound. LABORATORY DATA: White cell count is 18, hemoglobin 10, platelets ____, 87 segs and 1 band. Creatin ine is 0.64. Sodium is 130. Urine, small blood, 7-10 RBCs, otherwise negative. IMAGING: CT shows complex fluid collection in the pelvis. There is lots of stool in the colon proxi mal to her colostomy ____ changes in fluid collection in the pelvis. ASSESSMENT: Complex fluid collection in the pelvis, status post Vane's. Readmit for IV antibiot ics plus or minus percutaneous drainage.
[2018-08-12] MEDS: Famotidine 20 MG TAB PO SCH (20:08)
[2018-08-12] MEDS: Enoxaparin Sodium 40 MG/0.4 ML SYRINGE SC SCH (20:09)
[2018-08-12] MEDS: Simvastatin 40 MG TAB PO SCH (20:09)
[2018-08-12] MEDS: Sodium Chloride 0.9% 1,000 ML IV SCH (20:10)
[2018-08-12] MEDS: Famotidine/PF 20 mg/2ml Vial SLOW IVP SCH (22:14)
[2018-08-13] MEDS: Piperacillin/Tazobactam 3.375 GM in Sodium Chloride 0.9% 100 ML IVPB SCH ×4 (01:07→17:30)
[2018-08-13 02:10] VITALS: BMI 28.7
[2018-08-13 06:01] LABS: Anion Gap 12 mmol/L (10-20); BUN (Urea Nitrogen) 10 mg/dL (9.8-20.1); Calc. Creatinine Clearance 76 mL/min (70-130); Calcium 8.4 mg/dL (7.8-10.44); Carbon Dioxide 24 mmol/L (23-31); Chloride 102 mmol/L (98-107); Estimated GFR-MDRD 81; Glucose 99 mg/dL (83-110); Potassium 4.1 mmol/L (3.5-5.1); Sodium 134 mmol/L (136-145)
[2018-08-13 06:44] LABS: Band 5 % (5-11); Eosinophils 3 % (0-10); Hemoglobin 10.6 g/dL (12.0-16.0); Lymphocytes 13 % (21-51); MDiff Complete? YES; Mean Corpuscular Hemoglobin 29.6 pg (27.0-31.0); Mean Corpuscular Volume 89.8 fL (78.0-98.0); Mean Platelet Volume 6.1 fL (7.4-10.4); Monocytes 3 % (0-10); Neutrophil 73 % (42-75); Platelet Count 732 thou/uL (130-400); RBC Distribution Width 12.9 % (11.5-14.5); Reactive Lymphocytes 3 % (0-10); Red Blood Cell (RBC) Count 3.57 mill/uL (4.20-5.40); White Blood Cell (WBC) Count 21.1 thou/uL (4.8-10.8)
[2018-08-13] MEDS: Sodium Chloride 0.9% 1,000 ML IV SCH ×3 (07:42→20:37)
[2018-08-13] MEDS: Famotidine 20 MG TAB PO SCH ×2 (08:36→20:36)
[2018-08-13] MEDS: Famotidine/PF 20 mg/2ml Vial SLOW IVP SCH (08:39)
--- NOTE | 2018-08-13 11:35 | PRG ---
DATE OF SERVICE: 08/13/2018 SUBJECTIVE: Ms. Bah feels better today. She did respond to the milk of magnesia and has had more stool in her bag. PHYSICAL EXAMINATION: VITAL SIGNS: She is afebrile. Vital signs are stable. ABDOMEN: Softer. She has active bowel sounds. There is stool in her bag. LABORATORY DATA: White cell count is 21 today. Sodium 134, creatinine 0.7. ASSESSMENT: Readmission for fever with fluid collection in pelvis on CT scan. PLAN: If the leukocytosis fails to resolve, she will likely need drainage of this pelvic abscess. I t looks like it could be done posteriorly. We will defer to Dr. Scott tomorrow.
[2018-08-13] MEDS: traMADol HCl 50 MG TAB PO PRN ×2 (12:37→20:36)
[2018-08-13] MEDS: Simvastatin 40 MG TAB PO SCH (20:37)
[2018-08-14] MEDS: Famotidine/PF 20 mg/2ml Vial SLOW IVP SCH ×3 (00:48→20:11)
[2018-08-14] MEDS: Piperacillin/Tazobactam 3.375 GM in Sodium Chloride 0.9% 100 ML IVPB SCH ×4 (00:49→17:16)
[2018-08-14] MEDS: traMADol HCl 50 MG TAB PO PRN ×3 (00:54→08:40)
[2018-08-14] MEDS: Famotidine 20 MG TAB PO SCH ×2 (08:40→20:10)
[2018-08-14] MEDS: Sodium Chloride 0.9% 1,000 ML IV SCH ×2 (08:42→15:38)
--- NOTE | 2018-08-14 16:18 | RAD ---
PA AND LATERAL CHEST: 08/14/18 HISTORY: COPD. Heart size is within normal limits. There are atherosclerotic changes of the aorta. Lungs show some c hronic interstitial change. No focal infiltrative process is identified. Bones appear demineralized. There are arthritic changes of the spine. IMPRESSION: Mild chronic appearing lung change. POS: [facility]
--- NOTE | 2018-08-14 16:22 | RAD ---
RADIOGRAPH ABDOMEN TWO VIEWS: DATE: 08-14-18 HISTORY: 77-year-old female with partial small bowel obstruction. Comparison: Small bowel series and abdomen radiograph of 08-08-18. FINDINGS: The contrast material has been expelled from the colon and small intestine. Left lower quadrant ostom y is again noted. There is a large amount of bowel gas throughout multiple nondilated small bowel loo ps centrally in the abdomen, and in nondilated loops of colon. No differential air/fluid levels. No p neumoperitoneum. There is less small bowel dilatation on the current study compared to the previous. IMPRESSION: 1. No evidence of high grade bowel obstruction. 2. Large amount of bowel gas. POS: [facility]
[2018-08-14] MEDS ORDERED: Sodium Chloride 0.9% 1,000 ML IV SCH (19:15)
[2018-08-14] MEDS: Simvastatin 40 MG TAB PO SCH (20:10)
--- NOTE | 2018-08-14 21:22 | PRG ---
DATE OF SERVICE: 08/14/2018 SUBJECTIVE: Kelly Bah today is still complaining of some crampy abdominal pain. She is slightly tachypneic. OBJECTIVE: VITAL SIGNS: Temperature 97.9 degrees, 96, 153/83, 93% room air. HEENT: Unremarkable. LUNGS: Clear. No wheezing. Slightly tachypneic. ABDOMEN: Soft, mildly tympanitic. EXTREMITIES: Unremarkable. Stool 250 mL in 24 hours in her ostomy bag. Colostomy appears to be healthy. Abdominal x-rays sugge sts gas throughout the small bowel and colon. Few air fluid levels and central small bowel dilatatio n, but no obvious obstruction and more ileus pattern. LABORATORY DATA: Her white count is elevated at 21,000. Hemoglobin 10.6. Basic metabolic profile normal with sodium 134. ASSESSMENT: Ileus versus partial bowel obstruction, n.p.o., IV fluids. PLAN: IV fluid bolus. Recheck her labs tomorrow. CAT scan demonstrated some fluid in the pelvis an d gutters seen on CAT scan several days prior and again more recently CAT scan, but I do not think th at this is an abscess and need to be drained. We will check her white count tomorrow. She is on Zos yn. She may need central line or PICC line and TPN. She may need NG tube. Repeat evaluation tomorr ow. Keep n.p.o. except ice chips.
--- NOTE | 2018-08-14 22:40 | CON ---
DATE OF CONSULTATION: 08/14/2018 CONSULTING PHYSICIAN: Dr. Scott. REASON FOR CONSULTATION: COPD. Following up for 70 minutes time, of that time, greater than 50% of the time was spent with the patie nt and/or with the patient in the hospital. HISTORY OF PRESENT ILLNESS: The patient is a 77-year-old female who has been readmitted for treatmen t of a pelvic abscess after descending sigmoid resection with subsequent colostomy. This was done fo r diverticulitis. The patient has a history of COPD for which she has seen Dr. Chakraborty at [facility]. She was told she had mild COPD from her history of smoking 1-1/2 packs pe r day for approximately 50 years. She has been using Spiriva inhaler at home. She has been somewhat short of breath while in the hospital, but she thinks that is because of the pain associated with he r abdominal situation. PAST MEDICAL HISTORY: 1. COPD. 2. Gastroesophageal reflux. PAST SURGICAL HISTORY: Bilateral mastectomies, breast reconstruction, right hip open reduction inter nal fixation, pelvic fracture surgery, abdominal hysterectomy with bilateral salpingo-oophorectomy, a ppendectomy. ALLERGIES: MORPHINE. SOCIAL HISTORY: Does not consume alcohol. Tobacco consumption is detailed above. MEDICATIONS: Prior to admission, ranitidine, Spiriva, Zocor. REVIEW OF SYSTEMS: Otherwise, negative 12-point. PHYSICAL EXAMINATION: VITAL SIGNS: Temperature 97.9, pulse 96, respirations 16, O2 sat 93% on room air, blood pressure 153 /83. GENERAL: Patient is 5 foot 3, weight 162 pounds. She is in no acute distress. HEENT: Pupils are reactive. Sclerae icteric. Oropharynx clear. NECK: No adenopathy, JVD, or bruits. LUNGS: Clear without wheezing or rhonchi. CARDIAC: S1, S2 regular, without murmur. ABDOMEN: Distended. Bowel sounds hypoactive. Colostomy noted left lower quadrant. EXTREMITIES: No clubbing, cyanosis, or edema. LABORATORY AND X-RAY FINDINGS: Chest x-ray is clear. White blood cell count 21.1, hematocrit 32.1, platelet count 732. Sodium 134, potassium 4.1, BUN 10, creatinine 0.7, glucose 99. ASSESSMENT: 1. Chronic obstructive pulmonary disease -- mild by history. 2. Pelvic abscess, status post colostomy. PLAN: Reviewed medications, agree with rody fontenot. Continue to treat with antibiotics. I do not t hink she needs any type of IV steroid therapy. I would be happy to follow along with you.
[2018-08-15] MEDS: Sodium Chloride 0.9% 1,000 ML IV SCH ×5 (00:53→17:44)
[2018-08-15] MEDS: Piperacillin/Tazobactam 3.375 GM in Sodium Chloride 0.9% 100 ML IVPB SCH ×4 (00:53→17:45)
[2018-08-15 06:44] LABS: #Eosinphils 0.3 thou/uL (0.0-0.7); #Lymphocytes 1.5 thou/uL (1.20-3.40); #Monocytes 0.8 thou/uL (0.11-0.59); #Neutrophils 9.7 thou/uL (1.40-6.50); %Basophils 0.4 % (0.0-1.0); %Eosinophils 2.7 % (0.0-10.0); %Lymphocytes 12.1 % (21.0-51.0); %Monocytes 6.4 % (0.0-10.0); %Neutrophils 78.4 % (42.0-75.0); Hemoglobin 9.4 g/dL (12.0-16.0); Mean Corpuscular HGB CONC 33.1 g/dL (32.0-36.0); Mean Corpuscular Hemoglobin 29.8 pg (27.0-31.0); Mean Corpuscular Volume 89.8 fL (78.0-98.0); Mean Platelet Volume 6.6 fL (7.4-10.4); Platelet Count 607 thou/uL (130-400); RBC Distribution Width 12.6 % (11.5-14.5); Red Blood Cell (RBC) Count 3.16 mill/uL (4.20-5.40); White Blood Cell (WBC) Count 12.4 thou/uL (4.8-10.8)
[2018-08-15 07:03] LABS: Anion Gap 12 mmol/L (10-20); BUN (Urea Nitrogen) Less than 4 mg/dL (9.8-20.1); Calc. Creatinine Clearance 93 mL/min (70-130); Calcium 8.4 mg/dL (7.8-10.44); Carbon Dioxide 24 mmol/L (23-31); Chloride 103 mmol/L (98-107); Estimated GFR-MDRD Greater than 90; Glucose 89 mg/dL (83-110); Potassium 3.7 mmol/L (3.5-5.1); Sodium 135 mmol/L (136-145)
[2018-08-15] MEDS: traMADol HCl 50 MG TAB PO PRN ×2 (08:31→21:45)
--- NOTE | 2018-08-15 08:46 | PRG ---
DATE OF SERVICE: 08/15/2018. SUBJECTIVE: Apparently, she woke up wheezing some this morning. She now feels better. PHYSICAL EXAMINATION: VITAL SIGNS: Temperature is 98.6, pulse 86, respirations 14, O2 sat 95% on room air, blood pressure 139/75. HEENT: Unremarkable. NECK: No JVD. CHEST: Clear without wheeze or rhonchi. CARDIAC: S1, S2 regular. ABDOMEN: Soft, mildly tender around the previous surgical site. EXTREMITIES: No edema. LABORATORY DATA: White blood cell count 12.4, hematocrit 28.4, platelet count 607. Sodium 135, pota ssium 3.7, chloride 103, CO2 24, BUN 4, creatinine 0.5, glucose 89. ASSESSMENT: Stable pulmonary status. PLAN: I will give her scheduled nebulization medication and start her on Brovana.
[2018-08-15] MEDS: Famotidine/PF 20 mg/2ml Vial SLOW IVP SCH ×2 (09:16→21:52)
[2018-08-15] MEDS: Famotidine 20 MG TAB PO SCH ×2 (12:00→21:45)
[2018-08-15] MEDS: Arformoterol 15 MCG/2 ML NEB NEB SCH (18:57)
[2018-08-15] MEDS: Simvastatin 40 MG TAB PO SCH (21:45)
[2018-08-15] MEDS: Enoxaparin Sodium 40 MG/0.4 ML SYRINGE SC SCH (21:52)
[2018-08-16] MEDS: Piperacillin/Tazobactam 3.375 GM in Sodium Chloride 0.9% 100 ML IVPB SCH ×4 (00:45→19:18)
[2018-08-16 04:36] LABS: #Eosinphils 0.3 thou/uL (0.0-0.7); #Lymphocytes 1.7 thou/uL (1.20-3.40); #Monocytes 0.8 thou/uL (0.11-0.59); #Neutrophils 7.9 thou/uL (1.40-6.50); %Basophils 0.4 % (0.0-1.0); %Eosinophils 3.1 % (0.0-10.0); %Lymphocytes 15.4 % (21.0-51.0); %Monocytes 7.5 % (0.0-10.0); %Neutrophils 73.6 % (42.0-75.0); Hemoglobin 8.9 g/dL (12.0-16.0); Mean Corpuscular HGB CONC 33.5 g/dL (32.0-36.0); Mean Corpuscular Hemoglobin 29.9 pg (27.0-31.0); Mean Corpuscular Volume 89.2 fL (78.0-98.0); Mean Platelet Volume 6.6 fL (7.4-10.4); Platelet Count 598 thou/uL (130-400); RBC Distribution Width 12.7 % (11.5-14.5); Red Blood Cell (RBC) Count 2.97 mill/uL (4.20-5.40); White Blood Cell (WBC) Count 10.7 thou/uL (4.8-10.8)
[2018-08-16 04:57] LABS: ALT (SGPT) 16 U/L (8-55); AST (SGOT) 25 U/L (5-34); Albumin 2.9 g/dL (3.4-4.8); Alkaline Phosphatase 113 U/L (40-150); Anion Gap 12 mmol/L (10-20); BUN (Urea Nitrogen) Less than 4 mg/dL (9.8-20.1); Bilirubin, Total 0.5 mg/dL (0.2-1.2); Calc. Creatinine Clearance 96 mL/min (70-130); Calcium 8.4 mg/dL (7.8-10.44); Carbon Dioxide 25 mmol/L (23-31); Chloride 102 mmol/L (98-107); Estimated GFR-MDRD Greater than 90; Globulin 2.9 g/dL (2.4-3.5); Glucose 103 mg/dL (83-110); Magnesium 1.7 mg/dL (1.6-2.6); Phosphorus 2.2 mg/dL (2.3-4.7); Protein, Total 5.8 g/dL (6.0-8.3); Sodium 136 mmol/L (136-145)
[2018-08-16] MEDS: Arformoterol 15 MCG/2 ML NEB NEB SCH (05:56)
[2018-08-16] MEDS: Sodium Chloride 0.9% 1,000 ML IV SCH ×3 (06:13→21:34)
[2018-08-16] MEDS: Famotidine 20 MG TAB PO SCH ×2 (07:42→20:38)
--- NOTE | 2018-08-16 09:02 | RAD ---
KUB AND UPRIGHT: COMPARISON: 08/14/2018 study. HISTORY: Partial small bowel obstruction. FINDINGS: There is air within both small and large bowel. Left-sided ostomy is noted. The changes are all ivy rly similar to the prior exam. No free air demonstrated. Postoperative changes of the right hip are present. IMPRESSION: Gaseous distention abdomen. Appearance is overall stable as compared to the prior study. POS: [facility]
--- NOTE | 2018-08-16 09:03 | PRG ---
DATE OF SERVICE: 08/15/2018 Ms. Bah is doing well today. She still complains of abdominal pain in her upper abdomen. She, how ever, has had multiple bowel movements, filled her colostomy bag and had to have it emptied more than once. PHYSICAL EXAMINATION: VITAL SIGNS: Temperature 98.5 degrees, 88. LUNGS: Clear to auscultation. No wheezing. CARDIAC: Regular rate and rhythm. ABDOMEN: Soft. Mild tenderness central abdomen. Perhaps slight distention. No significant tympany . Abdominal x-rays revealed changes yesterday with probably some air fluid levels and probably represen enrique a partial bowel obstruction. Yesterday's x-ray revealed a large amount of bowel gas more consist ent with ileus. ASSESSMENT AND PLAN: 1. Chronic obstructive pulmonary disease followed by Dr. Santos, treatment per him. He has started Brovana. Nebs have been administered. There is no wheezing. 2. Partial bowel obstruction requiring multiple readmissions. We will allow her to have full liquid s as tolerated. We will repeat abdominal x-rays tomorrow. It is encouraging she is having bowel fun ction. We will obtain laboratories tomorrow as well as x-rays. Consider PICC line placement and TPN . Would be slow to discharge her home given her 2 readmissions.
[2018-08-16] MEDS: Potassium Chloride 20 MEQ in Premix Bag 1 BAG IVPB SCH ×2 (09:49→14:05)
[2018-08-16] MEDS: Famotidine/PF 20 mg/2ml Vial SLOW IVP SCH ×2 (09:53→20:39)
[2018-08-16] MEDS: traMADol HCl 50 MG TAB PO PRN (10:31)
--- NOTE | 2018-08-16 11:23 | PRG ---
DATE OF SERVICE: 08/16/2018 SUBJECTIVE: The patient is doing okay. Had no acute complaints. OBJECTIVE: VITAL SIGNS: On exam, temperature 98.1, pulse 108, respirations 24, O2 sat 97%, blood pressure 153/78. HEENT: Unremarkable. NECK: No JVD. LUNGS: No wheezing. CARDIAC: S1 and S2, regular. ABDOMEN: Somewhat distended and tender. EXTREMITIES: No edema. LABORATORY DATA: White blood cell count 10.7, hematocrit 26.5, platelet count 598. Sodium 136, potassium 3, chloride 102, CO2 of 25, BUN 4, creatinine 0.5, glucose 103. ASSESSMENT: 1. Chronic obstructive pulmonary disease. 2. Abdominal abscess. PLAN: Continue nebulization therapy and low-flow oxygen. Job ID: [id number]
[2018-08-16] MEDS ORDERED: Arformoterol 15 MCG/2 ML NEB NEB PRN (18:13)
[2018-08-16] MEDS: Enoxaparin Sodium 40 MG/0.4 ML SYRINGE SC SCH (20:38)
[2018-08-16] MEDS: Simvastatin 40 MG TAB PO SCH (20:38)
[2018-08-16] MEDS ORDERED: Potassium Chloride 20 MEQ TAB PO SCH (21:00)
--- NOTE | 2018-08-16 22:33 | PRG ---
DATE OF SERVICE: 08/16/2018 SUBJECTIVE: Kelly Bah is doing fairly well today. She is slightly anxious. OBJECTIVE: VITAL SIGNS: 98.4 degrees, 88, and 144/66. LUNGS: Without wheezing. CARDIAC: Regular rate and rhythm. ABDOMEN: Soft, slightly tympanitic. She has had multiple bowel movements in her colostomy. She has been tolerating full liquids well. LABORATORY DATA: White count 10, hemoglobin 8.9. Sodium 136, potassium 3.0, BUN less than 4, creatinine 0.55. Abdominal x-rays reveal gas distentions in large and small bowel, not much change compared to the previous study. ASSESSMENT AND PLAN: Partial small bowel obstruction. Would continue on full liquids today. She seems to be doing well without nausea or vomiting. She is on IV fluids at 100 per hour and we will decrease those and she seems to be tolerating the liquids very well. Her potassium is slightly low, we will place her on K-phos orally. She does have a history of chronic obstructive pulmonary disease and Dr. Santos has seen her. Depending her diet tolerance, consideration for PICC line can be given, but we if she tolerates her diet in the next 24 hours. Job ID: [id number]
[2018-08-17 05:55] LABS: Anion Gap 11 mmol/L (10-20); BUN (Urea Nitrogen) Less than 4 mg/dL (9.8-20.1); Calc. Creatinine Clearance 88 mL/min (70-130); Calcium 9.1 mg/dL (7.8-10.44); Carbon Dioxide 25 mmol/L (23-31); Chloride 104 mmol/L (98-107); Estimated GFR-MDRD Greater than 90; Glucose 90 mg/dL (83-110); Potassium 3.8 mmol/L (3.5-5.1); Sodium 136 mmol/L (136-145)
--- NOTE | 2018-08-17 08:54 | RAD ---
2 VIEWS ABDOMEN: Date: 08/17/18 COMPARISON: 08/16/18. HISTORY: Partial small bowel obstruction. FINDINGS: Supine and upright views of the abdomen show a nonspecific, nonobstructive bowel gas pattern. No free air or significant air fluid levels are seen on the upright examination. There are a few air-filled loops of small bowel in the abdomen, which are nonspecific. Hardware is seen in the right femur. IMPRESSION: Nonspecific, nonobstructive bowel gas pattern. POS: [facility]
[2018-08-17] MEDS: Famotidine/PF 20 mg/2ml Vial SLOW IVP SCH (09:00)
[2018-08-17] MEDS: Sodium Chloride 0.9% 1,000 ML IV SCH (16:13)
[2018-08-17] MEDS: Famotidine 20 MG TAB PO SCH (20:32)
[2018-08-17] MEDS: Simvastatin 40 MG TAB PO SCH (20:32)
[2018-08-17] MEDS: Enoxaparin Sodium 40 MG/0.4 ML SYRINGE SC SCH (20:33)
--- NOTE | 2018-08-17 20:47 | PRG ---
DATE OF SERVICE: SUBJECTIVE: Ms. Bah is doing better today. She is breathing better. X-rays today, abdominal, looked nonspecific and nonobstructive. She has had output of her colostomy, although minimal today. She is tolerating a regular diet. OBJECTIVE: VITAL SIGNS: 98.1, 79, 147/83. LUNGS: Clear to auscultation. No wheezing. CARDIAC: Regular rate and rhythm without murmur or gallop. ABDOMEN: Soft and nontender. EXTREMITIES: Unremarkable. LABORATORY DATA: None. ASSESSMENT: Resolving bowel obstruction. Her basic metabolic profile is normal today. Potassium 3.8 after replacement of potassium for hypokalemia. PLAN: Discharge home tomorrow if she continues to do well. Job ID: [id number]
[2018-08-18] MEDS: Sodium Chloride 0.9% 1,000 ML IV SCH (07:27)
[2018-08-18] MEDS: Famotidine 20 MG TAB PO SCH (08:30)
--- NOTE | 2018-08-18 10:50 | PRG ---
DATE OF SERVICE: 08/18/2018 SUBJECTIVE: She is doing well and she states she anticipates going home today. OBJECTIVE: VITAL SIGNS: Temperature 97.9, pulse 75, respirations 20, O2 sat 94%, and blood pressure 152/79. HEENT: Unremarkable. NECK: No JVD. CHEST: Clear. CARDIAC: S1 and S2. Regular. ABDOMEN: Mildly tender. EXTREMITIES: No edema. ASSESSMENT: Stable pulmonary status. She has some underlying chronic obstructive pulmonary disease. PLAN: Okay to go home at any time. She can follow up with her outpatient dimension specification inspector. Job ID: [id number]
[2018-08-18 16:19] VITALS: BP 165/85; TEMP 97.8
--- NOTE | 2018-08-18 22:13 | PRG ---
DATE OF SERVICE: SUBJECTIVE: Ms. aBh is doing well today. She is tolerating diet. She has had multiple bowel movements through her colostomy bag. Her abdomen is not distended. OBJECTIVE: VITAL SIGNS: Temperature 97.8, pulse 78, blood pressure 165/85. LUNGS: Clear to auscultation. CARDIAC: Regular rate and rhythm without murmur or gallop. ABDOMEN: Soft, nontender. Colostomy is healthy. ASSESSMENT: Doing well. PLAN: Discharge home. Follow up in my office in 3 to 4 weeks. Soft diet. Resume home medications. Take MiraLax every day. Job ID: [id number]
--- NOTE | 2018-08-19 20:20 | EKG ---
Test Reason : Blood Pressure : / mmHG Vent. Rate : 115 BPM Atrial Rate : 115 BPM P-R Int : 176 ms QRS Dur : 074 ms QT Int : 290 ms P-R-T Axes : 070 050 064 degrees QTc Int : 401 ms Sinus tachycardia Nonspecific ST and T wave abnormality Abnormal ECG Confirmed by KAITLIN LAW, ELIZABETH ([id number]), editor magazine NURY RONQUILLO ([id number]) on 08/19/2018 8:19:44 PM Referred By: Confirmed By:ELIZABETH MADRIGAL MD
--- NOTE | 2018-08-21 10:56 | DIS ---
DATE OF ADMISSION: 08/12/2018 DATE OF DISCHARGE: 08/18/2018 HISTORY: A 77-year-old female, readmitted with fevers and tachycardia. CAT scan demonstrating complex fluid collection in her pelvis with diminished colostomy output and constipation, right colon. There was question whether this was a residual fluid collection or significant collection that needed to be drained. Radiologist did not think this was drainable. White count was 18,000, hemoglobin 10. The patient was admitted to Dr. Buchanan in coverage and followup revealed that her white count normalized. It was my feeling that the fluid collection in her pelvis was probably residual postoperative. She did not have any pelvic pain. She did have some central small bowel dilatation with some concern for partial obstruction. The patient is admitted, continuing intravenous antibiotics and fluids, became afebrile, had a normal white count of 10, and normal heart rate. It was felt that she probably had a partial bowel obstruction. She continued on liquids to full liquids. She did have COPD exacerbation and Pulmonary Medicine was consulted and saw her and treated her with nebulizers. The patient finally convalesced, tolerated her diet and she was watched an extra 2 days, as she has had recent readmissions. She continued to have good colostomy output and tolerated diet. She was discharged home and will follow up in my office in 2 to 3 weeks, and to take MiraLAX every day. Kapaa were removed prior to discharge. Job ID: [id number]
== END 2018-08-18 17:45 | disposition home or self-care (01) | DRG 390 ==
LOC: ERS 13:37 → SURG A 16:46
PROVIDERS: ADMIT Surgery; ATTEND Surgery
DX: K56.609 Unspecified intestinal obstruction, unspecified as to partial versus complete obstruction (principal); E78.5 Hyperlipidemia, unspecified; Z93.3 Colostomy status; Z90.49 Acquired absence of other specified parts of digestive tract; Z88.5 Allergy status to narcotic agent; J44.9 Chronic obstructive pulmonary disease, unspecified; E87.6 Hypokalemia; K21.9 Gastro-esophageal reflux disease without esophagitis; Z87.891 Personal history of nicotine dependence; Z90.13 Acquired absence of bilateral breasts and nipples; I10 Essential (primary) hypertension
CPT/HCPCS: 36415; 71045; 71046; 74019; 74177; 80048; 80053; 81003; 81015; 82550; 82553; 83605; 83690; 83735; 84100; 84134; 84484; 85025; 87040; 93005; 94640; 94760; 96361; 96365; 96366; 96367; 96375; 96376; J0131; J1650; J2185; J2405; J2543; J3010; J3370; J3480; J7050; J7620; S0028

== ENCOUNTER 2018-08-21 01:25 | Emergency (ER) | payer MEDICARE | END 2018-08-21 03:54 | disposition home or self-care (01) | LOC: ERS 01:25 | DX: K94.03 Colostomy malfunction (principal); Z71.6 Tobacco abuse counseling; E78.5 Hyperlipidemia, unspecified; I10 Essential (primary) hypertension; J44.9 Chronic obstructive pulmonary disease, unspecified; Z87.891 Personal history of nicotine dependence; Z79.899 Other long term (current) drug therapy | CPT/HCPCS: 99406 ==

== ENCOUNTER 2018-10-04 11:12 | Day surgery (SDC) | payer MEDICARE ==
[2018-10-03 15:22] VITALS: BMI 28.0
--- NOTE | 2018-10-04 00:09 | HP ---
HISTORY OF PRESENT ILLNESS: This is a 77-year-old female who had sigmoid resection with a colostomy in July [address] Scott. The patient had esophageal stricture and had a bowel obstruction. She underwent a sigmoid colectomy and colostomy. Plan is being made for total colostomy takedown. The patient was referred to me by Dr. Scott to have colonoscopy before colostomy takedown. ALLERGIES: MORPHINE AND CODEINE. PAST MEDICAL HISTORY: 1. Hypertension. 2. Hyperlipidemia. 3. Chronic constipation. 4. Arthritis. 5. Sigmoid colectomy for the bowel obstruction. 6. Colostomy. SOCIAL HISTORY: The patient is a former smoker. Does not drink alcohol. PHYSICAL EXAMINATION: VITAL SIGNS: Pulse is 70, blood pressure 120/70. Conjunctivae clear. CARDIOVASCULAR: First and second heart sounds heard. LUNGS: Clear to auscultation. ABDOMEN: Soft. No organomegaly. No tenderness. No masses. Bowel sounds normal. ADMITTING DIAGNOSIS: A 77-year-old female with sigmoid colectomy for bowel obstruction and colostomy. The patient already had a colonoscopy before colostomy takedown. Job ID: [id number]
[2018-10-04] MEDS ORDERED: PROPOFOL 200 MG/20 ML VIAL ONE (16:11)
[2018-10-04] MEDS ORDERED: Lidocaine 1% PF 5 ML VIAL ONE (16:11)
--- NOTE | 2018-10-05 06:31 | OP ---
DATE OF PROCEDURE: 10/04/2018 PROCEDURE PERFORMED: Colonoscopy. PREOPERATIVE DIAGNOSIS: A 77-year-old female with a sigmoid resection for a sigmoid stricture, and the colostomy a couple of months ago. The patient will have a colostomy takedown in the near future. She was sent to me by Dr. Scott to have a colonoscopy before colostomy takedown. DESCRIPTION OF PROCEDURE: The patient was placed on the left lateral position. The rectal exam was done. The patient was found to have large hemorrhoids. No other lesions felt. Then, a Pentax video colonoscope was introduced into the rectum and advanced into the sigmoid colon area. The mucosa appeared normal. The patient had a large amount of mucus plugs which could not be dislodged. The scope was withdrawn. The patient was turned on the back. A digital exam was done through the colostomy opening. No lesions felt. A Pentax video colonoscope was introduced into the colostomy opening and advanced all the way to the cecum. The mucosa appeared normal. 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 Otherwise, mucosa appeared healthy. The patient has scattered diverticular disease all the way to the right colon. No appendiceal orifice, ileocecal wall, no pathology seen. The cecum, ascending colon, hepatic flexure, transverse colon, and descending colon showed scattered diverticula, mild. The scope was withdrawn. DISCHARGE PLANNING: This is a 77-year-old female came for colonoscopy before colostomy takedown. She underwent colonoscopy through the rectum and also through the colostomy opening. She has hemorrhoids and also scattered diverticula. DISCHARGE RECOMMENDATIONS: 1. The patient is advised to call me if she develops abdominal pain, hematochezia, fever. 2. We will see Dr. Scott in the near future for colostomy takedown. Job ID: [id number]
== END 2018-10-04 14:17 | disposition home or self-care (01) ==
LOC: SDC 11:12
PROVIDERS: ATTEND Internal Medicine Gastroenterology
PROC: 0DJD8ZZ Inspection of Lower Intestinal Tract, Via Natural or Artificial Opening Endoscopic (ICD-10-PCS; principal; 2018-10-04)
DX: K63.89 Other specified diseases of intestine (principal); K57.31 Diverticulosis of large intestine without perforation or abscess with bleeding; K64.9 Unspecified hemorrhoids; I10 Essential (primary) hypertension; E78.5 Hyperlipidemia, unspecified; K59.09 Other constipation; M19.90 Unspecified osteoarthritis, unspecified site; Z87.891 Personal history of nicotine dependence; Z79.899 Other long term (current) drug therapy; Z88.5 Allergy status to narcotic agent; Z90.49 Acquired absence of other specified parts of digestive tract; Z93.3 Colostomy status
CPT/HCPCS: J2001; J2704

== ENCOUNTER 2018-11-06 06:58 | Inpatient (IN) | payer MEDICARE ==
[2018-11-03 13:24] VITALS: BMI 28.7
[2018-11-06] MEDS ORDERED: Ketorolac Tromethamine 30 MG/ML VIAL ONE (07:33)
[2018-11-06] MEDS ORDERED: Meropenem 2 GM in Sodium Chloride 0.9% 100 ML IVPB SCH (07:45)
[2018-11-06] MEDS ORDERED: Fentanyl 100 MCG/2 ML VIAL ONE ×3 (08:13→15:43)
[2018-11-06] MEDS ORDERED: Midazolam HCl 2 mg/2 ml Vial ONE (08:13)
[2018-11-06] MEDS ORDERED: Dexamethasone 4 mg/ml Vial ONE (08:13)
[2018-11-06 08:25] LABS: #Basophils 0.1 thou/uL (0.0-0.2); #Eosinphils 0.1 thou/uL (0.0-0.7); #Lymphocytes 1.9 thou/uL (1.20-3.40); #Monocytes 0.5 thou/uL (0.11-0.59); #Neutrophils 3.6 thou/uL (1.40-6.50); %Basophils 0.9 % (0.0-1.0); %Eosinophils 2.2 % (0.0-10.0); %Lymphocytes 30.4 % (21.0-51.0); %Neutrophils 58.6 % (42.0-75.0); Hemoglobin 14.3 g/dL (12.0-16.0); Mean Corpuscular HGB CONC 32.2 g/dL (32.0-36.0); Mean Corpuscular Volume 87.1 fL (78.0-98.0); Mean Platelet Volume 8.3 fL (7.4-10.4); Platelet Count 210 thou/uL (130-400); RBC Distribution Width 13.3 % (11.5-14.5); Red Blood Cell (RBC) Count 5.08 mill/uL (4.20-5.40); White Blood Cell (WBC) Count 6.1 thou/uL (4.8-10.8)
[2018-11-06 08:27] LABS: Hemoglobin A1c 5.7 % (4.0-6.0)
--- NOTE | 2018-11-06 08:36 | HP ---
HISTORY OF PRESENT ILLNESS: Kelly Bah is a 77-year-old female, undesired colostomy. Plan is for laparoscopic colostomy reversal under general anesthesia with consideration for tap block or epidural preoperatively. The patient will have a nebulizer treatment prior to her surgery. She has had a recent colonoscopy on 10/04/2018, by Dr. Gonzalez, which was unremarkable. The patient had an incomplete colonoscopy on July 28, 2018, unable to pass the scope beyond the left colon due to diverticular stricture. She underwent on 07/28/2018, laparotomy, sigmoid resection, mobilization of splenic flexure, sigmoid colon resection portion of the descending colon, colostomy, Vane's pouch marked with a 2-0 Prolene, Seprafilm placed along with a triple-lumen catheter. ON August 05, 2018, the patient underwent colostomy revision at the colostomy site without laparotomy. Pathology from the resected colon on July 31, 2018, reveals stricture fibrosis with no malignancy. Latest chest x-ray on August 14, 2018, chest x-ray reveals mild chronic lung changes. PAST MEDICAL HISTORY: Mild COPD, GERD. PAST SURGICAL HISTORY: Bilateral mastectomies, reconstruction, right hip open reduction and internal fixation, pelvic fracture surgery, abdominal hysterectomy, bilateral salpingo-oophorectomy, appendectomy, colon surgery as noted above. The patient has a history of mild COPD, has not smoked in over 12 years. She has been followed in the past by Dr. Chakraborty at [facility], told she had mild COPD from her smoking 1 to 1-1/2 packs a day for approximately 50 years. She has a Spiriva inhaler at home. Dr. Santos has seen her in the past in consultation during hospital stay in July. SOCIAL HISTORY: Alcohol, none. PAST MEDICAL HISTORY: COPD, tobacco cessation more than 10 years ago, hypertension, discontinued in the past. Cardiac stress test in 2018 was normal. MEDICATIONS: 1. Tramadol. 2. Aspirin. 3. Spiriva inhaler. 4. Zantac. 5. Motrin. 6. Ultram. 7. Tylenol. 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 PHYSICAL EXAMINATION: VITAL SIGNS: Weight 162 pounds, height 63 inches, blood pressure 157/80, heart rate 85, temperature degrees. LUNGS: Clear to auscultation. No wheezing. No rhonchi. No rales. Slightly prolonged expiration. CARDIAC: Regular rate and rhythm. ABDOMEN: Soft. Midline incision well healed without hernia. Colostomy healthy. EXTREMITIES: Unremarkable. ASSESSMENT AND PLAN: Undesired colostomy. We would recommend laparoscopic colostomy reversal with preoperative placement of tap blocks or epidural to minimize pain control. Risks of infection, bleeding, reoperation, open operation discussed. She consents. We will plan this is a same-day admit after home bowel prep and colon cleansing. Job ID: [id number]
[2018-11-06 08:39] LABS: Anion Gap 15 mmol/L (10-20); BUN (Urea Nitrogen) 9 mg/dL (9.8-20.1); Calc. Creatinine Clearance 77 mL/min (70-130); Calcium 9.7 mg/dL (7.8-10.44); Carbon Dioxide 23 mmol/L (23-31); Chloride 105 mmol/L (98-107); Estimated GFR-MDRD 82; Glucose 91 mg/dL (83-110); Potassium 3.7 mmol/L (3.5-5.1); Sodium 139 mmol/L (136-145)
--- NOTE | 2018-11-06 09:07 | RAD ---
2 VIEWS CHEST: Date: 11/06/18 COMPARISON: 08/14/18. HISTORY: Preoperative radiograph. FINDINGS: Two views of the chest show normal sized cardiomediastinal silhouette. There is no evidence of consol idation, mass, or pleural effusion. Scoliotic curvature and degenerative changes are seen in the spin e. IMPRESSION: No evidence of acute cardiopulmonary disease. POS: [facility]
[2018-11-06] MEDS ORDERED: Ondansetron PF 4 MG/2 ML Vial IVP PRN (12:55)
[2018-11-06] MEDS ORDERED: hydrALAZINE 20 MG/ML VIAL SLOW IVP PRN (12:55)
[2018-11-06] MEDS ORDERED: Morphine 2 MG/ML SYRINGE ONE (13:15)
[2018-11-06] MEDS ORDERED: Promethazine HCl 25 MG/ML VIAL SLOW IVP PRN (14:10)
[2018-11-06] MEDS ORDERED: Promethazine HCl 25 MG/ML VIAL IM PRN (14:10)
[2018-11-06] MEDS ORDERED: Ondansetron HCl/PF 4 MG/2 ML Vial IVP PRN (14:10)
[2018-11-06] MEDS ORDERED: ePHEDrine 50 MG/ML VIAL ONE (15:17)
[2018-11-06] MEDS ORDERED: Ondansetron PF 4 MG/2 ML Vial ONE (15:17)
[2018-11-06] MEDS ORDERED: PHENYLEPHRINE-NS 100 MCG/ML 10 ML SYRINGE ONE (15:17)
[2018-11-06] MEDS ORDERED: PROPOFOL 200 MG/20 ML VIAL ONE (15:17)
[2018-11-06] MEDS ORDERED: Lidocaine 1% PF 5 ML VIAL ONE (15:17)
[2018-11-06] MEDS ORDERED: Glycopyrrolate 0.2 MG/ML 5 ML SYRINGE ONE (15:17)
[2018-11-06] MEDS ORDERED: Rocuronium Bromide 10 MG/ML (10ML VIAL) ONE (15:17)
[2018-11-06] MEDS ORDERED: Dexamethasone 20 MG/5 ML VIAL ONE (15:17)
--- NOTE | 2018-11-06 15:37 | OP ---
DATE OF PROCEDURE: 11/06/2018 PREOPERATIVE DIAGNOSES: Undesired colostomy, history of left colon resection for obstructing diverticulitis. POSTOPERATIVE DIAGNOSES: Undesired colostomy, history of left colon resection for obstructing diverticulitis, with adhesions from prior surgery. PROCEDURES PERFORMED: Laparoscopic adhesiolysis, laparoscopic colostomy takedown with colorectal anastomosis, 31 mm EEA, checked under water and no leak. SPECIMENS: Rectosigmoid stump. ANESTHESIA: General anesthesia, TAP block. DESCRIPTION OF PROCEDURE: The patient was taken to the operating room, where under general anesthesia, Aguayo catheter was placed at the beginning of procedure, left at the end. Abdomen was prepared with ChloraPrep, draped in routine fashion after colostomy site closed with continuous locking suture of 2-0 silk. Perineum, buttocks, perianal area were prepared with Betadine and draped in routine fashion. Incision was made at right lateral subcostal, pneumoperitoneum to 15 mmHg was obtained with a Veress needle, replaced with a 5 port, laparoscope inserted. There was adhesion free area in the right lateral abdomen. Mid lateral and right lower quadrant lateral incisions were made, and a 5 mm and 12 mm port placed respectively. LigaSure used to take down adhesions omentum from the anterior abdominal wall. Once the umbilicus was cleared, incision was made through the old scar and 5 mm port placed. Further adhesiolysis was undertaken freeing omentum from around the colostomy site. Colostomy site was mobilized. At this point, the rectal stump was identified, dissected free, and more proximal sigmoid, rectal area dissected free, cleared mesentery with the LigaSure and ASIM Endo blue load stapler fired x2, creating the rectal stump, grasping the specimen to be retrieved later. Proximal colon mobilized. Adhesions taken down between small bowel, omentum, colon, and colon had been previously mobilized with splenic flexure, was taken down further. Ligament of Treitz was required to take down to allow more mobility and reach into the pelvis. Once these adhesions were taken down, the colon would reach into the pelvis. At this point, the attention was then turned to incision around the colostomy, which was taken down, dissected free, brought out from colostomy site resected, and a 31 mm EEA anvil placed into the proximal colon with a pursestring suture of 2-0 Prolene. Once this was accomplished, attention was then turned to the pelvis, where anus had been serially dilated with the dilators and 31 mm EEA stapler placed and visualized laparoscopically rectal stump. Post-advanced out of the rectal stump stapler fired, released, removing two intact donuts. Anastomosis checked under water with proximal compression, there was no leak. Good hemostasis noted. Sponge and needle counts were correct. We then turned our attention laparoscopically ensuring good hemostasis. The ureter had been identified and kept free of harm during the procedure. The posterior rectus fascia was closed with continuous suture of 1 PDS. Then, anterior fascia closed with interrupted [id number] sutures of #1 PDS. Skin and subcutaneous tissues were irrigated. It should be mentioned at the terminate after the colon was resected and the colostomy takedown, we changed our gloves and gowns. At this point, the pneumoperitoneum was reduced, all instruments were removed. Colon colostomy site was irrigated copiously. All laparoscopic port sites were closed with interrupted subdermal 4-0 Monocryl and all ostomy site closed with interrupted 3-0 Monocryl and Paterson glue applied. The patient tolerated the procedure well. Job ID: [id number]
[2018-11-06] MEDS ORDERED: Fentanyl 100 MCG/2 ML VIAL SLOW IVP SCH (16:00)
[2018-11-06] MEDS: Lactated Ringer's 1,000 ML IV SCH ×3 (19:40→23:42)
[2018-11-06] MEDS: Acetaminophen 1,000 MG in Premix Bag 1 BAG IVPB SCH ×2 (20:16→23:41)
[2018-11-06] MEDS: Ketorolac Tromethamine 30 MG/ML VIAL IVP SCH ×2 (20:17→23:41)
[2018-11-06] MEDS: Enoxaparin Sodium 40 MG/0.4 ML SYRINGE SC SCH (20:17)
[2018-11-06] MEDS: Famotidine/PF 20 mg/2ml Vial SLOW IVP SCH (20:18)
[2018-11-06] MEDS: Famotidine 20 MG TAB PO SCH (20:18)
[2018-11-07 04:47] LABS: Anion Gap 11 mmol/L (10-20); BUN (Urea Nitrogen) 8 mg/dL (9.8-20.1); Calc. Creatinine Clearance 85 mL/min (70-130); Calcium 8.1 mg/dL (7.8-10.44); Carbon Dioxide 23 mmol/L (23-31); Chloride 104 mmol/L (98-107); Estimated GFR-MDRD Greater than 90; Glucose 105 mg/dL (83-110); Potassium 3.8 mmol/L (3.5-5.1); Sodium 134 mmol/L (136-145)
[2018-11-07 04:52] LABS: #Lymphocytes 1.3 thou/uL (1.20-3.40); #Monocytes 0.8 thou/uL (0.11-0.59); #Neutrophils 7.8 thou/uL (1.40-6.50); %Basophils 0.1 % (0.0-1.0); %Eosinophils 0.1 % (0.0-10.0); %Monocytes 7.8 % (0.0-10.0); Hemoglobin 10.8 g/dL (12.0-16.0); Mean Corpuscular HGB CONC 33.2 g/dL (32.0-36.0); Mean Corpuscular Hemoglobin 29.4 pg (27.0-31.0); Mean Corpuscular Volume 88.5 fL (78.0-98.0); Mean Platelet Volume 8.5 fL (7.4-10.4); Platelet Count 189 thou/uL (130-400); RBC Distribution Width 13.1 % (11.5-14.5); Red Blood Cell (RBC) Count 3.68 mill/uL (4.20-5.40); White Blood Cell (WBC) Count 9.9 thou/uL (4.8-10.8)
[2018-11-07] MEDS: Ketorolac Tromethamine 30 MG/ML VIAL IVP SCH ×3 (05:09→18:12)
[2018-11-07] MEDS: Acetaminophen 1,000 MG in Premix Bag 1 BAG IVPB SCH ×2 (05:09→13:51)
[2018-11-07] MEDS ORDERED: traMADol HCl 50 MG TAB PO PRN ×2 (08:00)
[2018-11-07] MEDS: Famotidine 20 MG TAB PO SCH ×2 (10:04→21:17)
[2018-11-07] MEDS: Famotidine/PF 20 mg/2ml Vial SLOW IVP SCH (10:37)
[2018-11-07] MEDS: Lactated Ringer's 1,000 ML IV SCH (13:15)
--- NOTE | 2018-11-07 16:21 | PRG ---
DATE OF SERVICE: 11/07/2018 SUBJECTIVE: Ms. Bah is doing well today. She is having some pain in her shoulder and chest when she walks or moves about. Otherwise, she is doing well. OBJECTIVE: VITAL SIGNS: Temperature 98.1, pulse 64, and blood pressure 106/65. LUNGS: Clear to auscultation. CARDIAC: Regular rate and rhythm without murmur or gallop. ABDOMEN: Soft. Bowel sounds present. Surgical sites look healthy. The patient reports passing of some blood per rectum earlier, but this has ceased. She has passed flatus. EXTREMITIES: Unremarkable. LABORATORY DATA: Her white count this morning is 9 and hemoglobin 10.8. Basic metabolic profile normal. Sodium 134. She has urinated with her Aguayo removed. Pathology from her small sigmoid colon resection, from colostomy reversal is normal without malignancy. ASSESSMENT AND PLAN: Doing well after laparoscopic colostomy reversal. We would increase her to full liquids and saline lock her. Job ID: [id number]
[2018-11-07] MEDS ORDERED: Acetaminophen 500 MG TAB PO PRN (18:00)
[2018-11-07] MEDS: Ipratropium Bromide 2.5 ml Neb NEB SCH (19:14)
[2018-11-07] MEDS: traMADol HCl 50 MG TAB PO PRN (21:16)
[2018-11-07] MEDS: Enoxaparin Sodium 40 MG/0.4 ML SYRINGE SC SCH (21:17)
[2018-11-08] MEDS: Ipratropium Bromide 2.5 ml Neb NEB SCH ×4 (00:31→18:11)
[2018-11-08] MEDS: Ketorolac Tromethamine 30 MG/ML VIAL IVP SCH ×4 (00:48→18:17)
[2018-11-08] MEDS: Famotidine 20 MG TAB PO SCH ×2 (09:00→20:59)
--- NOTE | 2018-11-08 13:03 | PRG ---
DATE OF SERVICE: 11/08/2018 SUBJECTIVE: Ms. Bah is doing well. She has not had any nausea or vomiting. She is tolerating her diet. OBJECTIVE: VITAL SIGNS: Temperature 98.8 degrees, pulse 85, blood pressure 112/70. No labs today. LUNGS: Clear to auscultation. CARDIAC: Regular rate and rhythm without murmur or gallop. ABDOMEN: Soft, nontender. Good bowel sounds. The patient has passed flatus, but has not had a formed bowel movement. She passed some bloody stools yesterday, but bloody stools have resolved. ASSESSMENT AND PLAN: Status post colostomy reversal laparoscopically. She is doing well. She has good pain control. At this point, we will continue to observe her. She would like to have a bowel movement before being discharged home. We will advance her to a regular diet and anticipate possible discharge home in the next 24 to 48 hours. Job ID: [id number]
[2018-11-08] MEDS: Enoxaparin Sodium 40 MG/0.4 ML SYRINGE SC SCH (20:58)
[2018-11-08] MEDS: traMADol HCl 50 MG TAB PO PRN (20:58)
[2018-11-09] MEDS: Ipratropium Bromide 2.5 ml Neb NEB SCH ×3 (00:05→12:39)
[2018-11-09] MEDS: Ketorolac Tromethamine 30 MG/ML VIAL IVP SCH ×3 (00:20→13:25)
[2018-11-09] MEDS: Famotidine 20 MG TAB PO SCH (07:58)
[2018-11-09] MEDS: Polyethylene Glycol 3350 17 GM Packet PO SCH ×2 (07:58→07:59)
[2018-11-09 11:45] VITALS: BP 160/82; TEMP 97.4
--- NOTE | 2018-11-09 14:55 | PRG ---
DATE OF SERVICE: SUBJECTIVE: Ms. Bah is doing well today. She is tolerating her diet. She has had a bowel movement, although liquid. OBJECTIVE: VITAL SIGNS: Temperature 97.4 degrees, heart rate 87, blood pressure 160/82. LUNGS: Clear to auscultation. CARDIAC: Regular rate and rhythm without murmur or gallop. ABDOMEN: Soft, nontender. Bowel sounds present. Laparoscopic wounds well healed. LABORATORY DATA: None. ASSESSMENT: Recovered gastrointestinal function after laparoscopic colostomy reversal. PLAN: Discharge home today. Ultram, Motrin, and Tylenol for pain. Follow up in my office in 2 to 3 weeks. Diet and activity as tolerated. Job ID: [id number]
--- NOTE | 2018-11-09 21:43 | DIS ---
DATE OF ADMISSION: 11/06/2018 DATE OF DISCHARGE: 11/09/2018 DISCHARGE DIAGNOSES: Undesired colostomy, elevated cholesterol, chronic obstructive pulmonary disease. PROCEDURE THIS HOSPITALIZATION: Laparoscopic colostomy reversal. HOME MEDICATIONS: 1. Tylenol. 2. Ultram. 3. Motrin p.r.n. pain. Resume home medications: 1. Simvastatin. 2. Spiriva. DIET AND ACTIVITY: As tolerated. Regular diet. FOLLOWUP: Follow up in 2 to 3 weeks. HISTORY: A 77-year-old female presenting with obstructing left colon diverticulitis. She underwent resection with colostomy. She is now brought in after interval colonoscopy by Gastroenterology for laparoscopic colostomy reversal, which she underwent without problems. She has resumed bowel function and been discharged home today with diet and activity as tolerated. Resume her home medications and given tramadol for pain. Job ID: [id number]
== END 2018-11-09 15:33 | disposition home or self-care (01) | DRG 346 ==
LOC: SURG A 06:58
PROVIDERS: ADMIT Specialist; ATTEND Specialist
PROC: 0DSM4ZZ Reposition Descending Colon, Percutaneous Endoscopic Approach (ICD-10-PCS; principal; 2018-11-06)
DX: Z43.3 Encounter for attention to colostomy (principal); E78.00 Pure hypercholesterolemia, unspecified; I10 Essential (primary) hypertension; J44.9 Chronic obstructive pulmonary disease, unspecified; K21.9 Gastro-esophageal reflux disease without esophagitis; Z90.49 Acquired absence of other specified parts of digestive tract; Z87.19 Personal history of other diseases of the digestive system; Z87.891 Personal history of nicotine dependence
CPT/HCPCS: 36415; 36416; 71046; 80048; 83036; 85025; 88307; J0131; J1100; J1650; J1885; J2001; J2185; J2250; J2270; J2405; J2704; J3010; J3490; J7050; J7620; S0028

== ENCOUNTER 2018-11-23 17:19 | Inpatient (IN) | payer MEDICARE ==
[~2018-11-23 17:19] MED LIST changes: +Iopamidol 370 76% 50 ML VIAL FS ONE
[2018-11-23 17:59] LABS: #Lymphocytes 1.3 thou/uL (1.20-3.40); #Monocytes 1.1 thou/uL (0.11-0.59); #Neutrophils 9.2 thou/uL (1.40-6.50); %Basophils 0.2 % (0.0-1.0); %Eosinophils 0.4 % (0.0-10.0); %Lymphocytes 10.8 % (21.0-51.0); %Monocytes 9.4 % (0.0-10.0); %Neutrophils 79.3 % (42.0-75.0); Hemoglobin 10.6 g/dL (12.0-16.0); Mean Corpuscular HGB CONC 32.3 g/dL (32.0-36.0); Mean Corpuscular Hemoglobin 28.4 pg (27.0-31.0); Mean Corpuscular Volume 87.9 fL (78.0-98.0); Mean Platelet Volume 6.6 fL (7.4-10.4); Platelet Count 569 thou/uL (130-400); RBC Distribution Width 13.9 % (11.5-14.5); Red Blood Cell (RBC) Count 3.73 mill/uL (4.20-5.40); White Blood Cell (WBC) Count 11.6 thou/uL (4.8-10.8)
--- NOTE | 2018-11-23 18:15 | HP ---
HISTORY OF PRESENT ILLNESS: Kelly Bah is an 78-year-old female seen today because she is not feeling well. She is experiencing belching, indigestion, bloating, and some abdominal cramps. She has been passing flatus, although mostly small amounts of liquids. She initially presented on July 28, 2018, with diverticular stricture with a colon obstruction requiring laparotomy, sigmoid resection, mobilization of splenic flexure, sigmoid colon resection, portion of the descending colon resection, colostomy, and Vane's pouch. She subsequently underwent colonoscopy, proctoscopy, and then on 11/06/2018, underwent laparoscopic colostomy reversal with a 31 mm EEA stapler after laparoscopic adhesiolysis. The patient was admitted for her laparoscopic colostomy reversal on 11/06 and was discharged on 11/09/2018. The patient states that she has been doing fairly well, but recently has just not felt well and experienced the above complaint. She was seen in my office, appreciated to have hyperactive bowel sounds, and changes of dehydration with dry oropharynx. She has been urinating, however, she states. She has been tolerating liquids. She had belching persistent in the office and with hyperactive bowel sounds, distended abdomen and tympany, she was admitted to the hospital. I have made an effort to obtain x-rays at 4:30 in the afternoon as an outpatient, but was told that the hospital would not provide those services and she had to go to the emergency room at that hour. The patient is admitted directly to the hospital for evaluation and hydration. She may need a CAT scan. PAST MEDICAL HISTORY: Mild COPD and GERD. PAST SURGICAL HISTORY: Bilateral mastectomies and reconstruction, right hip open reduction and internal fixation, pelvic fracture surgery, abdominal hysterectomy, bilateral salpingo-oophorectomy, appendectomy, colon resection with colostomy and Vane's pouch, subsequent reversal as noted above. She has history of mild COPD, but has not smoked in over 12 years. She has been followed in the past by Dr. Chakraborty at [facility] and told she had mild COPD from her smoking 1 to 1-1/2 packs per day for 50 years. She has a Spiriva inhaler at home. Dr. Santos has seen her in the past. SOCIAL HISTORY: Alcohol, none. Tobacco, currently none. Cardiac stress test in 2018, normal. MEDICATIONS: 1. Tramadol. 2. Aspirin. 3. Spiriva inhaler. 4. Zantac. 5. Motrin. 6. Ultram. 7. Tylenol. 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 She is speed reader, reading several novels a day. PHYSICAL EXAMINATION: VITAL SIGNS: Weight 153 pounds, height 63 inches, blood pressure 127/59, heart rate 97, and temperature 98.6 degrees. HEAD, EARS, EYES, NOSE AND THROAT: Unremarkable. LUNGS: Clear to auscultation. CARDIAC: Regular rate and rhythm. No murmur, rub or gallop. ABDOMEN: Midline incision well healed. Laparoscopic incisions are well healed. Colostomy site well healed. Hyperactive bowel sounds. Mild distention. Mild tympany. EXTREMITIES: Unremarkable. ASSESSMENT AND PLAN: Hyperactive bowel sounds, distention, and tympany. She is not feeling well. We will plan admission and hydration to correct her dehydration. Check her laboratories and abdominal x-ray. She may need a CAT scan. Hopefully, we can resolve this nonoperatively. Job ID: [id number]
[2018-11-23 18:17] VITALS: BMI 27.1
--- NOTE | 2018-11-23 18:58 | RAD ---
ONE VIEW CHEST TWO VIEWS ABDOMEN 11/23/18 COMPARISON: 08/08/18 FINDINGS: Slight elongation of the aorta. Normal cardiac silhouette. Pulmonary vessels and hilum are normal. Co stophrenic angles are clear. Lungs are hyperinflated with chronic changes. No masses or consolidation . No pneumothorax or acute osseous abnormalities. ABDOMEN TWO VIEWS: Nonspecific bowel gas pattern. Air filled nondistended, dilated loops of colon and small bowel. Some of the small bowel loops may be at the upper limits of normal. No differential air fluid levels. No p neumoperitoneum. IMPRESSION: 1. No radiographic evidence of obstruction. Continued surveillance is recommended. 2. Chronic change in the lung parenchyma. POS: [facility]
[2018-11-23] MEDS ORDERED: Ondansetron ODT 8 MG TAB PO PRN (19:00)
[2018-11-23] MEDS ORDERED: Ondansetron ODT 8 MG TAB SL PRN (19:00)
[2018-11-23] MEDS ORDERED: Ondansetron ODT 4 MG TAB PO PRN (19:00)
[2018-11-23] MEDS ORDERED: Acetaminophen 1,000 MG in Premix Bag 1 BAG IVPB PRN (19:00)
[2018-11-23] MEDS ORDERED: Ondansetron ORAL SOLN. 4 MG/5 ML UDCUP PO PRN ×2 (19:00)
[2018-11-23] MEDS ORDERED: Ketorolac Tromethamine 30 MG/ML VIAL IVP PRN (19:00)
[2018-11-23 19:03] LABS: ALT (SGPT) 27 U/L (8-55); AST (SGOT) 30 U/L (5-34); Albumin 3.1 g/dL (3.4-4.8); Alkaline Phosphatase 159 U/L (40-150); Anion Gap 15 mmol/L (10-20); BUN (Urea Nitrogen) 7 mg/dL (9.8-20.1); Bilirubin, Total 0.9 mg/dL (0.2-1.2); Calc. Creatinine Clearance 77 mL/min (70-130); Calcium 9.1 mg/dL (7.8-10.44); Carbon Dioxide 25 mmol/L (23-31); Chloride 91 mmol/L (98-107); Estimated GFR-MDRD 89; Globulin 3.5 g/dL (2.4-3.5); Glucose 117 mg/dL (83-110); Potassium 3.2 mmol/L (3.5-5.1); Protein, Total 6.6 g/dL (6.0-8.3); Sodium 128 mmol/L (136-145)
[2018-11-23] MEDS: Simvastatin 40 MG TAB PO SCH (20:19)
[2018-11-23] MEDS ORDERED: Enoxaparin Sodium 40 MG/0.4 ML SYRINGE SC SCH (21:00)
[2018-11-23] MEDS ORDERED: Ondansetron PF 4 MG/2 ML Vial IVP PRN (21:08)
--- NOTE | 2018-11-24 00:07 | CT ---
ABDOMEN CT WITH CONTRAST PELVIC CT WITH CONTRAST 11/23/18 HISTORY: Colostomy reversal 11/06/18. Abdominal pain. Bloody stools. COMPARISON: 08/12/18. FINDINGS: ABDOMEN CT: Lung bases are clear for any masses or consolidation. No pneumothorax. Heart size is within normal li mits. No pericardial effusion. The visualized aorta has a normal caliber. No periaortic fat stranding . Hypoattenuation of the liver, unchanged, likely representing areas of fatty infiltration. Hypodensity , well circumscribed in the right hepatic lobe is too small to characterize measuring 8 mm and may re present a cyst. The spleen, pancreas and right adrenal gland are unremarkable. Indeterminate nodule i n the left adrenal gland measuring 1.4 cm. No gastrohepatic, retrocrural or periportal lymphadenopathy. Symmetric enhancement of the kidneys. Bilaterally, no obstructive uropathy. There are small pockets of air attenuation in the ventral subcutaneous fat with stranding of the fat likely representing postsurgical change. There is no masseteric mass, lymphadenopathy or free air. There is stranding of the lower abdominal m esentery with small amount of fluid in both pericolic gutters. There is a normal appearing stomach du odenum, and small bowel loops. Ileocecal junction appears to be normal. Appendix is difficult to appr eciate. Cecal apex appears to cross midline and is in the left lower quadrant. Contrast opacifies a n ormal appearing cecum, ascending colon, transverse colon and descending colon. The sigmoid colon does demonstrate mucosal thickening and adjacent fat stranding. There is narrowing of the sigmoid colon a t the anastomotic suture site. There does appear to be fluid attenuation with heterogeneous enhanceme nt in the lower aspect of the abdomen/pelvis. There is no evidence of air attenuation. This fluid att enuation does drape the sigmoid colon. This collection measures 9.5 x 8.6 cm and has an attenuation c oefficient of 46 Hounsfield units, suggesting complex fluid. Fluid may represent an early infected co llection versus a postoperative seroma/resolving hematoma. CT PELVIS: Decompression of the urinary bladder limits evaluation. Evaluation of the pelvis is also limited by r ight internal fixation hardware. IMPRESSION: Heterogeneously peripherally enhancing fluid collection in the lower abdomen/pelvis without air atten uation. Differential considerations include postoperative fluid collection, resolving hematoma or an infected fluid collection. Correlate clinically. This fluid collection does encompass the traversing sigmoid colon. POS: [facility]
[2018-11-24 05:27] LABS: #Basophils 0.1 thou/uL (0.0-0.2); #Eosinphils 0.1 thou/uL (0.0-0.7); #Lymphocytes 2.2 thou/uL (1.20-3.40); #Neutrophils 6.6 thou/uL (1.40-6.50); %Basophils 0.6 % (0.0-1.0); %Eosinophils 1.3 % (0.0-10.0); %Lymphocytes 21.9 % (21.0-51.0); %Neutrophils 66.2 % (42.0-75.0); Hemoglobin 9.8 g/dL (12.0-16.0); Mean Corpuscular HGB CONC 32.4 g/dL (32.0-36.0); Mean Corpuscular Hemoglobin 28.7 pg (27.0-31.0); Mean Corpuscular Volume 88.4 fL (78.0-98.0); Mean Platelet Volume 6.6 fL (7.4-10.4); Platelet Count 549 thou/uL (130-400); RBC Distribution Width 13.8 % (11.5-14.5); Red Blood Cell (RBC) Count 3.43 mill/uL (4.20-5.40)
[2018-11-24] MEDS: Ipratropium Bromide 2.5 ml Neb NEB SCH ×3 (06:22→18:29)
[2018-11-24] MEDS: Polyethylene Glycol 3350 17 GM Packet PO SCH (07:45)
[2018-11-24] MEDS: Pantoprazole 40 MG VIAL IVP SCH (08:26)
--- NOTE | 2018-11-24 11:01 | RAD ---
TWO VIEWS OF THE ABDOMEN AND UPRIGHT VIEW OF THE CHEST: COMPARISON: 11/23/2018. HISTORY: Dehydration and bowel obstruction. FINDINGS: Supine and upright views of the abdomen and upright view of the chest show a nonspecific, nonobstruct ed bowel gas pattern. Contrast is seen in the colon from recent contrast examination. This extends to the level of the rectum. No free air or air fluid levels are seen on upright examination. The heart is normal in size. There is no evidence of consolidation, mass, or pleural effusion. IMPRESSION: No evidence of obstruction. POS: [facility]
[2018-11-24 12:43] LABS: Hemoglobin 10.2 g/dL (12.0-16.0)
[2018-11-24] MEDS: D5 0.9% NS w/ 20 mEq KCl 1,000 ML IV SCH (15:00)
--- NOTE | 2018-11-24 16:39 | PRG ---
DATE OF SERVICE: 11/24/2018 SUBJECTIVE: Ms. Bah was readmitted to the hospital yesterday by Dr. Scott. She is status post laparoscopic assisted colostomy reversal on November 06. She apparently returned to the office yesterday and not feeling well. She was felt to potentially be dehydrated. As it was late in the day, she was admitted to the hospital for further evaluation. At sometime, overnight, she began having blood per rectum. I do not believe she had a history of this prior to her admission yesterday. She denies nausea or vomiting. She tells me she feels better at this time. She has had IV fluid hydration overnight. She denies any significant pain currently. OBJECTIVE: VITAL SIGNS: She is afebrile. Current temperature is 97.5, pulse is 92 and has varied from from 74 to 105. Blood pressure is within normal limits at 131/64. LUNGS: Clear to auscultation anteriorly. CARDIAC: Regular rate and rhythm. ABDOMEN: Mildly protuberant, but soft and nontender. All incisions appeared to be well healed. Bowel sounds are present and normoactive to hyperactive. EXTREMITIES: Unremarkable. DIAGNOSTIC DATA: CT scan of her abdomen obtained last night was examined. There was a substantial fluid collection in the pelvis that I for the bladder. It is difficult to see the bladder on the CT scan, then I believe that this fluid collection is likely not the bladder. It is probably a resolving hematoma. There is no focal tenderness in the area of her pelvis with deep palpation. LABORATORY DATA: CBC upon admission yesterday evening revealed white blood cell count of 11.6 with a hemoglobin of 10.6. This morning, her hemoglobin had dropped down to 9.8 at 5 o'clock and has risen back up to 10.2 by noon today. White blood cell count was 10, this morning with an entirely normal differential. Chemistries at admission yesterday revealed significant electrolyte abnormalities with a high sodium and chloride level and a low potassium level. Unfortunately, she has been on Ringer lactate overnight, which will not correct these abnormalities. ASSESSMENT: The patient with electrolyte abnormalities, probably related to some degree of dehydration. I have changed her IV fluid to D5 normal saline with potassium. I have advanced her diet from clear liquid up to a regular diet and will order ambulation with assistance. She appears to be progressing appropriately. If she is tolerating her diet tomorrow, then she will probably be fine for discharge. I will recheck her blood count and her electrolytes tomorrow. In regard to her bleeding, her hemoglobin has been essentially stable since admission. She is followed by Dr. Mendez who. She does not appear to require a repeat endoscopy at this time. The patient has been Job ID: [id number]
[2018-11-24] MEDS: Simvastatin 40 MG TAB PO SCH (20:56)
[2018-11-24] MEDS ORDERED: Acetaminophen 500 MG TAB PO PRN (23:59)
[2018-11-25] MEDS: traMADol HCl 50 MG TAB PO PRN (01:58)
[2018-11-25] MEDS: Ipratropium Bromide 2.5 ml Neb NEB SCH ×5 (02:14→22:28)
[2018-11-25] MEDS: D5 0.9% NS w/ 20 mEq KCl 1,000 ML IV SCH ×2 (03:27→16:35)
[2018-11-25 06:28] LABS: #Basophils 0.1 thou/uL (0.0-0.2); #Eosinphils 0.3 thou/uL (0.0-0.7); #Lymphocytes 2.2 thou/uL (1.20-3.40); #Monocytes 0.9 thou/uL (0.11-0.59); %Basophils 0.6 % (0.0-1.0); %Eosinophils 2.7 % (0.0-10.0); %Lymphocytes 23.2 % (21.0-51.0); %Monocytes 9.9 % (0.0-10.0); %Neutrophils 63.6 % (42.0-75.0); Hemoglobin 9.4 g/dL (12.0-16.0); Mean Corpuscular HGB CONC 32.4 g/dL (32.0-36.0); Mean Corpuscular Hemoglobin 27.8 pg (27.0-31.0); Mean Corpuscular Volume 85.8 fL (78.0-98.0); Mean Platelet Volume 6.6 fL (7.4-10.4); Platelet Count 484 thou/uL (130-400); Red Blood Cell (RBC) Count 3.36 mill/uL (4.20-5.40); White Blood Cell (WBC) Count 9.4 thou/uL (4.8-10.8)
[2018-11-25 06:40] LABS: Anion Gap 11 mmol/L (10-20); BUN (Urea Nitrogen) 5 mg/dL (9.8-20.1); Calc. Creatinine Clearance 81 mL/min (70-130); Calcium 8.5 mg/dL (7.8-10.44); Carbon Dioxide 27 mmol/L (23-31); Chloride 98 mmol/L (98-107); Estimated GFR-MDRD Greater than 90; Glucose 122 mg/dL (83-110); Potassium 3.5 mmol/L (3.5-5.1); Sodium 132 mmol/L (136-145)
[2018-11-25] MEDS: Polyethylene Glycol 3350 17 GM Packet PO SCH (09:35)
[2018-11-25] MEDS: Pantoprazole 40 MG VIAL IVP SCH (09:35)
--- NOTE | 2018-11-25 12:32 | PRG ---
DATE OF SERVICE: 11/25/2018 SUBJECTIVE: This is an 78-year-old female hospitalized 2 days ago with abdominal pain, generalized weakness, fatigue etc. She had an episode of hematochezia after admission. Her blood count has been pretty stable. She was on a clear liquid diet by Dr. Thomas yesterday. The patient has had no recurrence of bleeding. Blood count is stable. Also, her M7 shows the lytes are back to normal. The admitting chemistry showed hyponatremia, today sodium is back to 132, potassium 3.5, chloride 98, BUN is 5. Her CBC is actually pretty stable at hemoglobin 9.4 and hematocrit 28.9. PHYSICAL EXAMINATION: GENERAL: Appears comfortable. VITAL SIGNS: Stable. Afebrile. CARDIOVASCULAR/LUNGS: Within normal limits. ABDOMEN: Soft. No organomegaly. No tenderness. There are active bowel sounds. RECOMMENDATIONS: 1. Continue regular diet. 2. From GI standpoint, no further workup planned and she can be discharged home. Job ID: [id number]
[2018-11-25] MEDS ORDERED: Potassium Chloride 40 MEQ, Magnesium Sulfate 2 GM in Sodium Chloride 0.9% 250 ML 250 ML IVPB SCH (17:45)
[2018-11-25] MEDS ORDERED: Magnesium Sulfate 2 GM in Sodium Chloride 0.9% 100 ML IVPB SCH (17:45)
[2018-11-25] MEDS ORDERED: Potassium Chloride 20 MEQ TAB PO SCH (20:30)
[2018-11-25] MEDS: Simvastatin 40 MG TAB PO SCH (20:32)
[2018-11-26] MEDS: Ipratropium Bromide 2.5 ml Neb NEB SCH ×4 (07:09→22:40)
[2018-11-26 08:18] LABS: Anion Gap 12 mmol/L (10-20); BUN (Urea Nitrogen) 6 mg/dL (9.8-20.1); Calc. Creatinine Clearance 77 mL/min (70-130); Carbon Dioxide 28 mmol/L (23-31); Chloride 99 mmol/L (98-107); Estimated GFR-MDRD 89; Glucose 105 mg/dL (83-110); Magnesium 1.4 mg/dL (1.6-2.6); Phosphorus 2.9 mg/dL (2.3-4.7); Potassium 4.5 mmol/L (3.5-5.1); Sodium 134 mmol/L (136-145)
[2018-11-26] MEDS: Polyethylene Glycol 3350 17 GM Packet PO SCH (08:25)
[2018-11-26] MEDS: Pantoprazole 40 MG VIAL IVP SCH ×2 (08:25→08:34)
--- NOTE | 2018-11-26 11:45 | PRG ---
DATE OF SERVICE: 11/26/2018 SUBJECTIVE: This is an 78-year-old female, status post colostomy reversal 3 weeks ago, came in with some abdominal bloating, some cramping pain, and also mild hematochezia. The patient is tolerating diet. There is no abdominal pain. No nausea or vomiting. Does have abdominal cramping off and on. She is passing flatus. She has had no stool. She tells me she is spotting some blood off and on when she passes gas. Her blood count has been fairly stable. Not much significant drop from admission. PHYSICAL EXAMINATION: GENERAL: She is awake, alert, and communicative. VITAL SIGNS: Afebrile. Pulse is 84, blood pressure 147/83. CARDIOVASCULAR/LUNGS: Within normal limits. ABDOMEN: Soft. Abdomen is nondistended. She is minimally tender over lower abdomen. There is no rebound or guarding. Bowel sounds are normal. RECOMMENDATION: She was given a dose of MiraLAX this morning. She really wants to have a BM, if she wants to go home. Her abdominal exam is benign. If she does well, hopefully, she can be discharged home later on today or tomorrow. Job ID: [id number]
[2018-11-26] MEDS: Magnesium 2 GM/50 ML 2 GM in Premix Bag 1 BAG IVPB SCH ×2 (17:05→17:17)
--- NOTE | 2018-11-26 17:05 | PRG ---
DATE OF SERVICE: 11/26/2018 SUBJECTIVE: This is an 78-year-old female, status post colostomy reversal approximately 3 weeks ago. The patient was readmitted for abdominal pain, cramping, and bloating. The patient is tolerating a regular diet, continues to pass gas. The patient does report some abdominal soreness. The patient has not had a bowel movement. The patient was given a laxative this morning. The patient has been up walking and does not verbalize any other complaints. The patient was evaluated also by GI this morning. OBJECTIVE: VITAL SIGNS: Temperature 98, pulse 84, respirations 20, SpO2 97% on room air, blood pressure 147/83. GENERAL: The patient is awake, alert, in no distress. CARDIOVASCULAR: Regular rate and rhythm. No pedal edema. RESPIRATORY: Respirations unlabored and equal. No distress. ABDOMEN: Soft, nondistended, mild tenderness over the lower abdomen. There is no rebound or guarding. Active bowel sounds. LABORATORY DATA: Sodium 134, potassium 4.5, chloride 99, CO2 of 28, anion gap 12, BUN 6, creatinine 0.64, estimated GFR 89, glucose 105, calcium 9.0, phosphorus 2.9, and magnesium 1.4. IMPRESSION: 1. Status post colostomy reversal on November 06, 2018. 2. Dehydration, resolved. PLAN: Continue regular diet. Continue walking program. The patient should be able to be discharged home tomorrow as per GI. We will continue the patient's pain regimen. We will replace the patient's electrolytes. The patient was examined with Dr. Salmeron this morning during rounds. Job ID: [id number]
[2018-11-26] MEDS: Simvastatin 40 MG TAB PO SCH (19:36)
[2018-11-26] MEDS: Magnesium Oxide 400 MG TAB PO SCH (19:36)
[2018-11-26] MEDS ORDERED: Pantoprazole 40 MG VIAL IVP SCH (20:45)
[2018-11-27] MEDS: traMADol HCl 50 MG TAB PO PRN (01:06)
[2018-11-27] MEDS: Ipratropium Bromide 2.5 ml Neb NEB SCH ×4 (07:42→23:33)
[2018-11-27] MEDS: Magnesium Oxide 400 MG TAB PO SCH ×2 (08:42→20:24)
[2018-11-27] MEDS: Polyethylene Glycol 3350 17 GM Packet PO SCH (08:42)
[2018-11-27] MEDS: Pantoprazole 40 MG VIAL IVP SCH (08:42)
[2018-11-27 09:22] LABS: #Basophils 0.1 thou/uL (0.0-0.2); #Eosinphils 0.4 thou/uL (0.0-0.7); #Lymphocytes 2.7 thou/uL (1.20-3.40); #Monocytes 0.8 thou/uL (0.11-0.59); #Neutrophils 4.8 thou/uL (1.40-6.50); %Basophils 0.9 % (0.0-1.0); %Eosinophils 4.9 % (0.0-10.0); %Lymphocytes 30.2 % (21.0-51.0); %Monocytes 9.6 % (0.0-10.0); %Neutrophils 54.5 % (42.0-75.0); Hemoglobin 10.1 g/dL (12.0-16.0); Mean Corpuscular Hemoglobin 27.4 pg (27.0-31.0); Mean Corpuscular Volume 88.4 fL (78.0-98.0); Mean Platelet Volume 6.5 fL (7.4-10.4); Platelet Count 581 thou/uL (130-400); RBC Distribution Width 14.2 % (11.5-14.5); Red Blood Cell (RBC) Count 3.69 mill/uL (4.20-5.40); White Blood Cell (WBC) Count 8.8 thou/uL (4.8-10.8)
--- NOTE | 2018-11-27 09:48 | CON ---
DATE OF CONSULTATION: 11/24/2018 REASON FOR CONSULTATION: Hematochezia. HISTORY OF PRESENT ILLNESS: Kelly Bah is a very pleasant 78-year-old female hospitalized for bowel obstruction in July 2018. She had a flexible sigmoidoscopy and was found to have sigmoid obstruction. She underwent surgery by Dr. Jeremy Scott, colostomy. Biopsy showed more of advanced stricture in the sigmoid colon area. The patient came to see me in September 2018 for a colonoscopy before she can undergo colostomy takedown. The colonoscopy showed no problem except for diverticula. The patient underwent colostomy reversal by Dr. Scott on 11/06/2018 under . She came to see Dr. Scott yesterday because of recurrent belching, intense abdominal bloating, and abdominal cramping. She was hospitalized because of the above reasons. She had abdominal CAT scan done, which showed some fluid collection in sigmoid colon area and also some sigmoid stricture, fatty cells. The patient although passing bloody stool yesterday. She had at least 2 or 3 bloody stools after admission in hospital. Through the night she did well until this morning 4:30, she had another bloody stool. I saw her around 10 o'clock in the morning, and at that time, she had one more stool. The stool was actually non-bloody. Her abdominal symptoms markedly improved here. It is not belching anymore, and she is not having any abdominal cramping anymore at the present time. The patient had a CBC, which showed mild anemia. The admitting CBC showed hemoglobin around 10.6, and this morning dropping down to 9.8, hematocrit 32.8 dropping to 30.3. At the time of this visit, she appears really comfortable. She really wants to eat, and she really wants to know when she can go home. She is not belching or having anymore abdominal pain. No relevant history. MEDICAL ILLNESSES: 1. Mild COPD. 2. Chronic acid reflux. 3. Diverticular disease. 4. Sigmoid stricture, status post colectomy and colostomy in July 2018 and also colostomy reversal in October 2018. Other surgeries include bilateral mastectomies and reconstruction, right hip surgery, pelvic fracture surgery, hysterectomy, bilateral salpingo-oophorectomy, and appendectomy. SOCIAL HISTORY: The patient is a former smoker. Does not drink alcohol. No history of drug abuse. MEDICATIONS: List includes, 1. Tramadol. 2. Aspirin. 3. Spiriva inhaler. 4. Zantac. 5. Motrin. 6. Ultram. 7. Tylenol. REVIEW OF SYSTEMS: A 10-point system review remarkable for abdominal bloating, recurrent belching, mild abdominal cramping, etc. No nausea. No vomiting. Noted to have hematochezia. PHYSICAL EXAMINATION: GENERAL: The patient appears very comfortable. She is awake, alert, and oriented to time, place, and person. She is mildly hard of hearing. VITAL SIGNS: Afebrile, pulse is 92, and blood pressure is 130/ 64. HEENT: Conjunctivae are clear. NECK: Supple. No adenitis or thyromegaly noted. CARDIOVASCULAR SYSTEM: First and second heart sounds heard. LUNGS: No wheezing heard. ABDOMEN: Soft and nondistended. Abdomen is mildly tender around the colostomy reversal area. There is no rebound or guarding. No masses felt. Bowel sounds are normal. EXTREMITIES: Reveal no edema. LABORATORY DATA: WBC 11,600, hemoglobin is 10.6, and hematocrit 32.8. Today, hemoglobin 9.8, hematocrit 30.3. Lytes; sodium 128, potassium 3.2, chloride 91, bicarb 25, BUN 7, creatinine 0.64, glucose 117, calcium 9.1, bilirubin 0.9, AST is 30, ALT 27, alkaline phosphatase 159, and albumin 3.1. IMAGING DATA: Her abdominal CAT scan shows fluid collection in sigmoid colon area and also sigmoid narrowing as per the CAT scan. CLINICAL IMPRESSION: 1. An 78-year-old female, status post sigmoid resection stricture in July 2018, followed by colostomy reversal 3 weeks ago. Presents with abdominal pain and belching as well. The CAT scan shows multiple abnormal findings. There is no free air seen. She had an episode of hematochezia last evening and through the night. The last BM was actually nonbloody. The bleeding may be from the anastomotic area versus possibly from diverticula. 2. Chronic obstructive pulmonary disease. 3. Chronic acid reflux. RECOMMENDATIONS: May start clear liquid diet and observe her. If the patient is not bleeding again, may have to consider a sigmoidoscopy and also tagged RBC scan. The last stool had no melena about an hour ago. We will start clear liquid diet and watch her and decide further course of treatment. Job ID: [id number]
--- NOTE | 2018-11-27 10:09 | PRG ---
DATE OF SERVICE: 11/25/2018 SUBJECTIVE: Ms. Bah is an 78-year-old woman. The patient is 19 days, status post laparoscopic colostomy reversal. She reports persistent abdominal bloating and inability to have bowel movements. She passes some bright red blood intermittently. She denies any significant abdominal pain. OBJECTIVE: VITAL SIGNS: Today include blood pressure 113/73, pulse is 89, respiratory rate is 14, temperature 97.7 degrees Fahrenheit, oxygen saturation 96% on room air. HEART: Reveals regular rate and rhythm. No murmurs or gallops auscultated. LUNGS: Clear to auscultation bilaterally. Her breathing, regular and nonlabored. ABDOMEN: Soft, nontender, but moderately distended. LABORATORY FINDINGS: Today include a CBC with 9400 white blood cells, hemoglobin and hematocrit 9.4 and 28.9 respectively. Platelet count is 484,000. Metabolic profile; sodium 132, potassium is 3.5, chloride is 98, bicarb is 27, BUN is 5, creatinine 0.61, glucose is 122. IMPRESSION: 1. Postoperative day #19, status post laparoscopic colostomy reversal. 2. Acute hypokalemia. PLAN: 1. Correct abnormal electrolytes. 2. Increase activity. 3. Anticipate discharge in next 24 to 48 hours with return of adequate bowel function. Job ID: [id number]
[2018-11-27] MEDS ORDERED: Magnesium Citrate 300 ML BOT PO SCH ×2 (11:45→17:15)
[2018-11-27] MEDS ORDERED: Mineral Oil PER 1 ML PO SCH (11:45)
--- NOTE | 2018-11-27 13:32 | PRG ---
DATE OF SERVICE: 11/27/2018 SUBJECTIVE: Ms. Bah remains on the surgical floor. She has apparently been stable over the weekend, but she claimed this morning that she really has not had a significant bowel movement since her surgery 3 weeks ago. I have that she was passing bowel movements earlier in this hospitalization. She is apparently eating well and has a good appetite. There is no nausea or vomiting. She denies pain. She is on no narcotic medication. OBJECTIVE: VITAL SIGNS: She is afebrile. Pulse is 74, blood pressure 118/74. LUNGS: Clear to auscultation. CARDIAC: Regular rate and rhythm. ABDOMEN: Soft and nondistended. Bowel sounds are present and normoactive without evidence of tympany. EXTREMITIES: Unremarkable. LABORATORY DATA: Basic metabolic panel from yesterday was unremarkable with minimal electrolyte abnormalities. Her magnesium level is a little bit low. Her CBC from today reveals a white blood cell count of 8.8 with hemoglobin of 10.1, platelet count is 581. Differential is unremarkable. X-RAYS: KUB was obtained earlier today. This shows some nonspecific gaseous dilatation of the small bowel without evidence of obstruction. She has some contrast type material and stool in the left colon heading down towards her anastomosis. ASSESSMENT: She seems to be doing well following her surgery and readmission by Dr. Scott on the . This is therefore hospital day #5. Dr. Orellana saw the patient earlier today and ordered some magnesium citrate and mineral oil. This has already been administered. We will watch her today and make sure that her bowel function improves and stabilizes. Assuming she is stable, I would anticipate discharge tomorrow. She is already on MiraLAX daily and will need to continue on this. Job ID: [id number]
--- NOTE | 2018-11-27 13:35 | RAD ---
KUB: Date: 11/27/18 HISTORY: Abdominal pain, constipation. FINDINGS: The bowel gas pattern is nonobstructed. There is a mild amount of stool present within the colon. Res idual contrast within the left colon from the previous CT is noted. There is what appears to be an an astomotic suture line within the pelvis in what would be the sigmoid region. There are no signs for o bstruction, although some narrowing to the residual barium column within the sigmoid colon in this re gion. IMPRESSION: Postop changes. Mild gaseous distention of the abdomen with residual oral contrast related to recent CT as described above. POS: [facility]
[2018-11-27] MEDS: Simvastatin 40 MG TAB PO SCH (20:24)
[2018-11-28] MEDS: Ipratropium Bromide 2.5 ml Neb NEB SCH ×2 (06:35→12:20)
[2018-11-28] MEDS: Magnesium Oxide 400 MG TAB PO SCH (08:27)
[2018-11-28] MEDS: Polyethylene Glycol 3350 17 GM Packet PO SCH (08:28)
[2018-11-28 15:37] VITALS: BP 110/71; TEMP 98.3
--- NOTE | 2018-11-29 04:17 | DIS ---
DATE OF ADMISSION: 11/23/2018 DATE OF DISCHARGE: 11/28/2018 ADMISSION DIAGNOSES: Abdominal bloating, cramping, and belching, suspected dehydration. DISCHARGE DIAGNOSES: Abdominal bloating, cramping, and belching, suspected dehydration, resolved. OPERATION/PROCEDURES PERFORMED: None. ADMISSION HISTORY: The patient is an 78-year-old female who underwent a colostomy reversal per Dr. Scott about 3 weeks ago. When she saw me in the office on 11/23, she had complaints of belching, indigestion, bloating, and cramping and did not seem to be doing well. He admitted her for evaluation and treatment. HOSPITAL COURSE: After admission, she had some blood per rectum. She was seen in consultation by Dr. Gonzalez. Her hemoglobin never really dropped substantially. It is 10.6 at admission and after hydration was still only 9.8. She never vomited after admission. It took a while to regulate her bowel function. She did have a CT scan obtained on the that did show a substantial fluid collection in the lower abdomen, but without evidence of infection associated with this. Her white blood cell count was always normal and her examination was unremarkable. Yesterday, in the morning, she was given mineral oil and magnesium citrate and later in the day, she had multiple bowel movements. She has been on a regular diet throughout the admission. She has had unremarkable vital signs. She has been afebrile at all times. In summary, she is stable for discharge home at this time. She is to continue regular diet. I have asked her to follow up with Dr. Scott next week. I have instructed her to take MiraLAX daily to avoid further episodes of constipation. Job ID: [id number]
== END 2018-11-28 16:45 | disposition home or self-care (01) | DRG 641 ==
LOC: SURG A 17:19
PROVIDERS: ADMIT Specialist; ATTEND Specialist
DX: E86.0 Dehydration (principal); K92.1 Melena; E87.1 Hypo-osmolality and hyponatremia; J44.9 Chronic obstructive pulmonary disease, unspecified; K21.9 Gastro-esophageal reflux disease without esophagitis; E87.6 Hypokalemia; D64.9 Anemia, unspecified; Z90.710 Acquired absence of both cervix and uterus; Z90.49 Acquired absence of other specified parts of digestive tract; Z87.891 Personal history of nicotine dependence; Z79.82 Long term (current) use of aspirin; Z79.899 Other long term (current) drug therapy; K59.00 Constipation, unspecified; Z90.722 Acquired absence of ovaries, bilateral; Z90.10 Acquired absence of unspecified breast and nipple
CPT/HCPCS: 36415; 74018; 74022; 74177; 80048; 80053; 83735; 84100; 85025; 86850; 86900; 86901; C9113; J1885; J2405; J3475; J3480; J7050; Q9966; Q9967

== ENCOUNTER 2019-09-01 04:35 | Inpatient (IN) | payer MEDICARE ==
[2019-09-01] MEDS ORDERED: Ondansetron PF 4 MG/2 ML Vial ONE ×2 (04:40→05:05)
[2019-09-01 05:41] LABS: #Basophils 0.1 thou/uL (0.0-0.2); #Monocytes 0.8 thou/uL (0.11-0.59); #Neutrophils 8.8 thou/uL (1.40-6.50); %Eosinophils 0.1 % (0.0-10.0); %Lymphocytes 23.3 % (21.0-51.0); %Monocytes 6.3 % (0.0-10.0); %Neutrophils 69.3 % (42.0-75.0); Hemoglobin 15.3 g/dL (12.0-16.0); Mean Corpuscular HGB CONC 35.4 g/dL (32.0-36.0); Mean Corpuscular Hemoglobin 31.7 pg (27.0-31.0); Mean Corpuscular Volume 89.5 fL (78.0-98.0); Mean Platelet Volume 7.7 fL (7.4-10.4); Platelet Count 232 thou/uL (130-400); RBC Distribution Width 11.8 % (11.5-14.5); Red Blood Cell (RBC) Count 4.83 mill/uL (4.20-5.40); White Blood Cell (WBC) Count 12.7 thou/uL (4.8-10.8)
[2019-09-01] MEDS ORDERED: Ketorolac Tromethamine 30 MG/ML VIAL ONE (05:55)
[2019-09-01] MEDS ORDERED: Ondansetron PF 4 MG/2 ML Vial IVP PRN (06:00)
[2019-09-01] MEDS ORDERED: Ondansetron ODT 4 MG TAB SL PRN (06:00)
[2019-09-01 06:03] LABS: ALT (SGPT) 24 U/L (8-55); AST (SGOT) 20 U/L (5-34); Albumin 4.2 g/dL (3.4-4.8); Alkaline Phosphatase 104 U/L (40-110); Anion Gap 15 mmol/L (10-20); BUN (Urea Nitrogen) 13 mg/dL (9.8-20.1); Bilirubin, Total 0.5 mg/dL (0.2-1.2); CK (CPK) 100 U/L (29-168); Calc. Creatinine Clearance 0 mL/min (70-130); Carbon Dioxide 23 mmol/L (23-31); Chloride 100 mmol/L (98-107); Estimated GFR-MDRD 86; Globulin 2.5 g/dL (2.4-3.5); Glucose 126 mg/dL (83-110); Lipase 13 U/L (8-78); Potassium 3.8 mmol/L (3.5-5.1); Protein, Total 6.7 g/dL (6.0-8.3); Sodium 134 mmol/L (136-145)
[2019-09-01] MEDS ORDERED: Metoclopramide HCl 10 MG/2 ML VIAL ONE (06:05)
[2019-09-01] MEDS ORDERED: Metoclopramide 10 MG/10 ML UDCUP ONE (06:05)
[2019-09-01] MEDS ORDERED: Fentanyl 100 MCG/2 ML VIAL ONE (06:59)
[2019-09-01] MEDS ORDERED: Cyclobenzaprine 10 MG TAB ONE (07:47)
--- NOTE | 2019-09-01 08:08 | RAD ---
Exam: Abdomen one view: HISTORY: Evaluate NG tube placement. Small bowel obstruction. FINDINGS: Single upright view of the abdomen including the lower chest demonstrates NG tube in place. No free i ntraperitoneal air. Minimally dilated small bowel loops. IMPRESSION: NG tube in satisfactory location. Evidence for small bowel obstruction. Continued short-term follow-u p.
--- NOTE | 2019-09-01 08:20 | RAD ---
Exam: Chest one view: HISTORY: Chest pain COMPARISON: 11/24/2018 FINDINGS: Heart size is within normal limits. Minimal increased linear interstitial markings bilaterally withou t confluent pneumonia or overt edema. No significant pleural effusion. Bony demineralization. Some irregularity of the soft tissues in the region of the right breast which is stable. IMPRESSION: Stable chronic changes. Atherosclerosis of the aorta.
[2019-09-01 09:17] VITALS: BMI 30.8
--- NOTE | 2019-09-01 09:19 | CT ---
PRELIMINARY REPORT/DIRECT RADIOLOGY/EMERGENCY AFTER HOURS PROCEDURE: Receipt of this report by the clinical staff was confirmed with LOCO HILLIARD MD by Sonali Jamison se on Sep 01, 2019 06:41:00 [employer]. Addendum electronically signed by Mel Jamison on September 01, 2019 6:42:03 AM [employer] EXAM: CT Abdomen and Pelvis with Intravenous Contrast CLINICAL HISTORY: ER 7... F78 presents to ED for genaralized abd pain that radiates to the back. Pt s tates the pain started about an hour ago that has been getting worse. Pt states she has gagged/vomite d once since onset of symptoms. Pt states her last bowel movement was this morning. Surgical history of bowel resection and colostomy, colostomy reversal, hysterectomy, oophorectomy TECHNIQUE: Axial computed tomography images of the abdomen and pelvis with intravenous contrast. CONTRAST: With; ISOVUE 370, 9ml COMPARISON: None provided. FINDINGS: LUNG BASES: No basilar airspace consolidation or pleural effusion. LIVER: Unremarkable. Small liver cyst is seen. GALLBLADDER AND BILE DUCTS: Unremarkable. No calcified stone. No ductal dilation. PANCREAS: Unremarkable. SPLEEN: Unremarkable. ADRENAL GLANDS: Unremarkable. KIDNEYS, URETERS, AND BLADDER: Unremarkable. No hydronephrosis or nephrolithiasis. No ureteral or blanka dder calculi. STOMACH AND BOWEL: There is swirling of the mesentery in the mid abdomen with mild stranding and dila tation of the proximal loops of small bowel. A single loop of small bowel is seen within midline umb ilical hernia. No perforation is seen. The large bowel appear normal in caliber. Gas and fecal mat erial is seen in the large. Constipation identified. APPENDIX: No CT evidence for appendicitis. PERITONEUM: No free fluid. No free air. LYMPH NODES: No lymphadenopathy. REPRODUCTIVE: Unremarkable as visualized. VASCULATURE: No aortic aneurysm. BONES: No fracture or suspicious osseous abnormality. Prior fixation of the right hip joint is seen. Degenerative changes of the lumbar spine is seen. ABDOMINAL WALL AND SOFT TISSUES: Bowel containing umbilical hernia is seen. Another fat-containing l eft anterior abdominal wall hernia seen best seen on image 47. No incarceration is identified. No i nguinal hernia is identified. IMPRESSION: Twisting of the mesentery with dilatation of the proximal small bowel loops. Mild stranding is seen in the mesentery at the level of the twisting. Findings raise suspicion of small bowel obstruction. A single mildly dilated small bowel loop is also identified within the hernia sac. Surgical consult ation recommended. ELECTRONICALLY SIGNED BY: Brandon Johnson MD Sep 01, 2019 6:39:17 AM [employer] FINAL REPORT ABDOMEN AND PELVIC CT SCAN WITH IV CONTRAST: EMERGENT AFTER HOURS EXAM TIME: 6:24 AM. DATE: 09/01/2019. Evidence for abnormal small bowel extension into an umbilical hernia with some swirling of the mesent odin and some mesenteric fat stranding and some proximal obstruction and dilated small bowel with some air fluid levels. Small fat-containing left lateral anterior abdominal wall hernia. Stable liver c yst. No obstructing calculus. This report is in agreement with the preliminary report. POS: [facility]
[2019-09-01] MEDS: Fentanyl 100 MCG/2 ML VIAL SLOW IVP PRN ×2 (09:23→13:42)
[2019-09-01] MEDS: Sodium Chloride 0.9% 1,000 ML IV SCH ×2 (09:23→19:37)
[2019-09-01] MEDS ORDERED: Iopamidol 370 76% 100 ML VIAL ONE (11:03)
[2019-09-01] MEDS ORDERED: Heparin 1,000 UNITS/ML VIAL ONE (14:57)
[2019-09-01] MEDS ORDERED: Cepastat Lozenges 1 LOZ PO PRN (15:36)
[2019-09-01] MEDS ORDERED: Acetaminophen 1,000 MG in Premix Bag 1 BAG IVPB PRN (15:36)
[2019-09-01] MEDS ORDERED: Chloraseptic Spray 180 ml Bottle PO PRN (15:37)
[2019-09-01] MEDS ORDERED: Pantoprazole 40 MG VIAL IVP SCH (16:00)
--- NOTE | 2019-09-01 17:37 | HP ---
CHIEF COMPLAINT: Abdominal pain, nausea, and vomiting. HISTORY OF PRESENT ILLNESS: Ms. Bah is an 78-year-old woman, who has undergone multiple surgeries recently including a sigmoid colectomy and colostomy with take back for revision of the colostomy due to ischemia and ultimately colostomy takedown. She had her last surgery in October, although she did develop an anastomotic stricture which was dilated by gastroenterology. She reports a one-day history of abdominal pain, nausea and vomiting beginning this morning around 4 o'clock. She states that she had a normal bowel movement early in the morning about 1:30, but woke up with left-sided severe crampy abdominal pain, which was not getting any better, so she promptly came to the emergency room. She underwent evaluation and a CT was diagnostic of a small bowel obstruction. She was found to have a reducible umbilical hernia and a nonreducible colostomy site hernia, which appeared to contain only fatty tissue on the CT. She has multiple dilated loops of proximal small bowel with one dilated loop in the umbilical hernia. The patient had an NG placed and was admitted to the hospital for bowel rest and decompression. She states that since arriving in the hospital, her abdominal pain has improved vastly and she is no longer nauseated. She does not think she has passed gas since the onset of her symptoms, but she is currently comfortable. PAST MEDICAL HISTORY: COPD, reflux, colonic stricture, and hyperlipidemia. PAST SURGICAL HISTORY: Vane's procedure in July with subsequent take back for ischemia of the colostomy, colostomy reversal in October, colon dilation, bilateral mastectomies and reconstruction, orthopedic surgery for pelvic and right hip fractures, total abdominal hysterectomy and bilateral salpingo-oophorectomy, and appendectomy. SOCIAL HISTORY: Past smoker, but none for many years. No alcohol or drug use. OUTPATIENT MEDICATIONS: Include; 1. Zocor. 2. Spiriva inhaler. 3. P.r.n. tramadol. 4. P.r.n. MiraLAX. REVIEW OF SYSTEMS: Ten system review of systems is negative except per HPI. The patient has been in good health up until today. PHYSICAL EXAMINATION: VITAL SIGNS: The patient is afebrile with normal heart rate, saturating 94% on room air with a blood pressure of 143/87. GENERAL: Reveals an elderly woman, in no acute distress. She is not flushed or toxic in appearance. She is not jaundiced or icteric. She is resting comfortably with an NG tube in place. HEENT: Unremarkable. NECK: Supple without lymphadenopathy or thyroid nodules. HEART: Regular in its rate and rhythm without murmurs, rubs, or gallops. LUNGS: Clear to auscultation although breath sounds are somewhat distant. ABDOMEN: Soft and nondistended. She has a healed midline incision with an easily reducible hernia near the umbilicus. She has a nontender, but irreducible hernia at her old colostomy site in the left lower quadrant. She has hyperactive bowel sounds. She has some mild tenderness in the left lateral abdomen, but is otherwise nontender. She does not exhibit any rigidity, rebound, or guarding and does not have any palpable masses. EXTREMITIES: Warm and well perfused without edema. She has normal pedal pulses , which are easily palpable. NEUROLOGIC: No focal neuro deficits. PSYCHIATRIC: Alert, oriented, and appropriate. LABORATORY DATA: White count is mildly elevated on her admission at 12.7, hematocrit is 43.2, and platelets are 232. Electrolytes are unremarkable. LFTs are normal. Troponin was less than 0.01, and she did have a negative stress test last year. IMAGING DATA: CT images are reviewed and I agree with the written report. The definite transition point is difficult to define, however. ASSESSMENT AND PLAN: Small bowel obstruction, currently much improved symptomatically with NG decompression and bowel rest. We are going to continue with conservative management for 24 to 48 hours. She will ultimately require surgery to repair her hernias, but this will be best done not in the setting of an acute obstruction. If however she proceeds to the operating room during this hospital admission, the hernias would likely be repaired primarily at that time. Job ID: [id number] [facility]
[2019-09-02] MEDS: Sodium Chloride 0.9% 1,000 ML IV SCH (05:47)
[2019-09-02 06:55] LABS: Eosinophils 1 % (0-10); Hemoglobin 16.1 g/dL (12.0-16.0); Lymphocytes 34 % (21-51); MDiff Complete? YES; Mean Corpuscular HGB CONC 33.5 g/dL (32.0-36.0); Mean Corpuscular Hemoglobin 29.6 pg (27.0-31.0); Mean Corpuscular Volume 88.2 fL (78.0-98.0); Mean Platelet Volume 7.2 fL (7.4-10.4); Monocytes 5 % (0-10); Neutrophil 60 % (42-75); Platelet Count 273 thou/uL (130-400); Platelet Morphology Comment Appears Adequate; RBC Distribution Width 11.8 % (11.5-14.5); Red Blood Cell (RBC) Count 5.43 mill/uL (4.20-5.40); White Blood Cell (WBC) Count 13.2 thou/uL (4.8-10.8)
[2019-09-02 07:01] LABS: Anion Gap 12 mmol/L (10-20); BUN (Urea Nitrogen) 7 mg/dL (9.8-20.1); Calc. Creatinine Clearance 83 mL/min (70-130); Calcium 8.8 mg/dL (7.8-10.44); Carbon Dioxide 25 mmol/L (23-31); Chloride 100 mmol/L (98-107); Estimated GFR-MDRD 85; Glucose 107 mg/dL (83-110); Potassium 3.1 mmol/L (3.5-5.1); Sodium 134 mmol/L (136-145)
[2019-09-02] MEDS ORDERED: Potassium Chloride 40 MEQ in Sodium Chloride 0.9% 250 ML 250 ML IVPB SCH (09:00)
[2019-09-02] MEDS: D5 1/2 NS w/20 mEq KCL 1,000 ML IV SCH ×2 (09:32→16:55)
[2019-09-02] MEDS ORDERED: ePHEDrine/0.9% NaCl/PF SYRINGE 50 mg/10 ml ONE (10:44)
[2019-09-02] MEDS ORDERED: PHENYLEPHRINE-NS 100 MCG/ML 10 ML SYRINGE ONE (10:44)
[2019-09-02] MEDS ORDERED: Succinylcholine Chloride 20 MG/ML 10 ml SYRINGE FS ONE (10:44)
[2019-09-02] MEDS ORDERED: PROPOFOL 200 MG/20 ML VIAL ONE (10:44)
[2019-09-02] MEDS ORDERED: Rocuronium Bromide 10 MG/ML (10ML VIAL) ONE (10:44)
[2019-09-02] MEDS ORDERED: Ondansetron PF 4 MG/2 ML Vial ONE (10:44)
[2019-09-02] MEDS ORDERED: Lidocaine 1% PF 5 ML VIAL ONE (10:44)
[2019-09-02] MEDS ORDERED: Metoclopramide HCl 10 MG/2 ML VIAL ONE (10:44)
[2019-09-02] MEDS ORDERED: Ketorolac Tromethamine 30 MG/ML VIAL ONE (10:44)
[2019-09-02] MEDS ORDERED: Glycopyrrolate 0.2 MG/ML 5 ML SYRINGE ONE (10:44)
--- NOTE | 2019-09-02 12:11 | RAD ---
ABDOMEN 1 VIEW: HISTORY: Small bowel obstruction. FINDINGS: NG tube in place. There are markedly dilated small bowel loops with more dilatation and more distent ion than on the prior study. There also appears to be considerably less colon gas than on the prior CT. No free intraperitoneal air demonstrated. IMPRESSION: Progressive small bowel obstruction with progressively dilated and distended small bowel loops with l ess colonic gas seen than on the prior study. POS: [facility]
--- NOTE | 2019-09-02 12:55 | PDOC.GSPN ---
Surgery Progress Note: Subj - Subjective Narrative: Patient's pain is worse this morning. No nausea. NG output is minimal. Repeat abdominal film shows continued small bowel dilation consistent with persistent obstruction. Hernia still soft and reducible but she has worsening tenderness in the left abdomen and is slightly more distended. Assessment/plan: Persistent small bowel obstruction with worsening pain. Plan operative intervention today. Laparoscopic approach if possible but open surgery may be necessary. We will plan to repair her hernias but this may be with suture only which has a higher chance of recurrence. Operative plan and risks were discussed with the patient and she wants to proceed. Surgery Progress Note: Obj - Vital signs Vital signs: Vital Signs - Most Recent Temp Pulse Resp BP Pulse Ox 97.7 F 79 18 159/88 H 92 L 09/02/19 11:26 09/02/19 11:26 09/02/19 11:26 09/02/19 11:26 09/02/19 11:26 Surgery Progress Note: Results - Labs Result Diagrams: 09/02/19 06:26 09/02/19 06:27 Lab results: Laboratory Results - last 24 hr 09/02/19 09/02/19 06:26 06:27 WBC 13.2 H RBC 5.43 H Hgb 16.1 H Hct 47.9 H MCV 88.2 MCH 29.6 MCHC 33.5 RDW 11.8 Plt Count 273 MPV 7.2 L Neutrophils % (Manual) 60 Lymphocytes % (Manual) 34 Monocytes % (Manual) 5 Eosinophils % (Manual) 1 Plt Morphology Comment Appears Adequate Sodium 134 L Potassium 3.1 L Chloride 100 Carbon Dioxide 25 Anion Gap 12 BUN 7 L Creatinine 0.67 Estimated GFR (MDRD) 85 Glucose 107 Calcium 8.8
[2019-09-02] MEDS ORDERED: cefOXitin 2 GM in Sodium Chloride 0.9% 100 ML IVPB SCH (13:00)
[2019-09-02] MEDS ORDERED: Lidocaine 1% w/Epinephrine 1:100K 20 ML VIAL ONE (15:20)
[2019-09-02] MEDS ORDERED: Bupivacaine 0.25% HCL 30 ML VIAL ONE (15:20)
[2019-09-02] MEDS ORDERED: ceFOXitin 2 GM/50 ML Duplex BAG ONE (15:31)
[2019-09-02] MEDS ORDERED: Sodium Chloride 0.9% 100 ML ONE (15:31)
[2019-09-02] MEDS: Pantoprazole 40 MG VIAL IVP SCH (15:35)
[2019-09-02] MEDS ORDERED: Lidocaine 2% Jelly 5 ML TUBE ONE (15:59)
[2019-09-02] MEDS ORDERED: Fentanyl 100 MCG/2 ML VIAL ONE ×2 (15:59→19:19)
[2019-09-02] MEDS ORDERED: Ondansetron HCl/PF 4 MG/2 ML Vial IVP PRN (18:21)
[2019-09-02] MEDS ORDERED: Promethazine HCl 25 MG/ML VIAL SLOW IVP PRN (18:21)
[2019-09-02] MEDS ORDERED: Albuterol Sulfate HFA (OR ONLY) ONE (18:43)
[2019-09-02] MEDS ORDERED: traMADol HCl 50 MG TAB PO PRN (21:02)
[2019-09-02] MEDS: Acetaminophen 1,000 MG in Premix Bag 1 BAG IVPB PRN (21:31)
[2019-09-03] MEDS: D5 1/2 NS w/20 mEq KCL 1,000 ML IV SCH ×2 (05:21→15:30)
[2019-09-03] MEDS: Enoxaparin Sodium 40 MG/0.4 ML SYRINGE SC SCH (09:11)
[2019-09-03] MEDS: Pantoprazole 40 MG VIAL IVP SCH (09:12)
[2019-09-03] MEDS ORDERED: Potassium Chloride 40 MEQ in Sodium Chloride 0.9% 250 ML 250 ML IVPB SCH (10:30)
[2019-09-03 10:50] LABS: #Eosinphils 0.2 thou/uL (0.0-0.7); #Monocytes 0.7 thou/uL (0.11-0.59); #Neutrophils 8.2 thou/uL (1.40-6.50); %Basophils 0.1 % (0.0-1.0); %Lymphocytes 17.5 % (21.0-51.0); %Monocytes 6.4 % (0.0-10.0); Hemoglobin 14.1 g/dL (12.0-16.0); Mean Corpuscular HGB CONC 33.6 g/dL (32.0-36.0); Mean Corpuscular Hemoglobin 29.9 pg (27.0-31.0); Mean Corpuscular Volume 88.7 fL (78.0-98.0); Mean Platelet Volume 7.2 fL (7.4-10.4); Platelet Count 231 thou/uL (130-400); RBC Distribution Width 11.9 % (11.5-14.5); Red Blood Cell (RBC) Count 4.72 mill/uL (4.20-5.40); White Blood Cell (WBC) Count 11.1 thou/uL (4.8-10.8)
[2019-09-03 11:10] LABS: Anion Gap 11 mmol/L (10-20); BUN (Urea Nitrogen) 7 mg/dL (9.8-20.1); Calc. Creatinine Clearance 96 mL/min (70-130); Calcium 8.1 mg/dL (7.8-10.44); Carbon Dioxide 22 mmol/L (23-31); Chloride 104 mmol/L (98-107); Estimated GFR-MDRD Greater than 90; Glucose 138 mg/dL (83-110); Potassium 3.7 mmol/L (3.5-5.1); Sodium 133 mmol/L (136-145)
[2019-09-03] MEDS: Acetaminophen 1,000 MG in Premix Bag 1 BAG IVPB PRN ×2 (11:48→17:41)
--- NOTE | 2019-09-03 18:52 | PDOC.GSPN ---
Surgery Progress Note: Subj - Subjective Narrative: A little nauseated this AM but passing a little flatus too. NG output pale green. Bowel sounds present and incisions look good. Was going to DC FC but daytime urine output marginal. Increasing IV fluids and will continue to monitor. Hope to get FC and NG out tomorrow. Surgery Progress Note: Obj - Vital signs Vital signs: Vital Signs - Most Recent Temp Pulse Resp BP Pulse Ox 97.8 F 88 18 112/76 94 L 09/03/19 15:00 09/03/19 15:00 09/03/19 15:00 09/03/19 15:00 09/03/19 15:00 Surgery Progress Note: Results - Labs Result Diagrams: 09/03/19 10:27 09/03/19 10:27 Lab results: Laboratory Results - last 24 hr 09/03/19 09/03/19 10:27 10:27 WBC 11.1 H RBC 4.72 Hgb 14.1 Hct 41.9 MCV 88.7 MCH 29.9 MCHC 33.6 RDW 11.9 Plt Count 231 MPV 7.2 L Neutrophils % 74.0 Lymphocytes % 17.5 L Monocytes % 6.4 Eosinophils % 2.0 Basophils % 0.1 Neutrophils # 8.2 H Lymphocytes # 2.0 Monocytes # 0.7 H Eosinophils # 0.2 Basophils # 0.0 Sodium 133 L Potassium 3.7 Chloride 104 Carbon Dioxide 22 L Anion Gap 11 BUN 7 L Creatinine 0.58 L Estimated GFR (MDRD) Greater than 90 Glucose 138 H Calcium 8.1
[2019-09-03] MEDS ORDERED: Sodium Chloride 0.9% 500 ML IV SCH (19:15)
[2019-09-04] MEDS: traMADol HCl 50 MG TAB PO PRN ×2 (02:28→22:30)
[2019-09-04] MEDS: D5 1/2 NS w/20 mEq KCL 1,000 ML IV SCH ×3 (02:31→11:30)
[2019-09-04 05:30] LABS: #Eosinphils 0.5 thou/uL (0.0-0.7); #Lymphocytes 2.1 thou/uL (1.20-3.40); #Monocytes 0.9 thou/uL (0.11-0.59); %Eosinophils 3.9 % (0.0-10.0); %Lymphocytes 15.7 % (21.0-51.0); %Monocytes 6.9 % (0.0-10.0); %Neutrophils 73.5 % (42.0-75.0); Hemoglobin 13.5 g/dL (12.0-16.0); Mean Corpuscular HGB CONC 33.9 g/dL (32.0-36.0); Mean Corpuscular Hemoglobin 30.3 pg (27.0-31.0); Mean Corpuscular Volume 89.6 fL (78.0-98.0); Mean Platelet Volume 7.3 fL (7.4-10.4); Platelet Count 261 thou/uL (130-400); RBC Distribution Width 11.9 % (11.5-14.5); Red Blood Cell (RBC) Count 4.46 mill/uL (4.20-5.40); White Blood Cell (WBC) Count 13.6 thou/uL (4.8-10.8)
[2019-09-04 05:48] LABS: Anion Gap 10 mmol/L (10-20); BUN (Urea Nitrogen) 4 mg/dL (9.8-20.1); Calc. Creatinine Clearance 85 mL/min (70-130); Calcium 8.5 mg/dL (7.8-10.44); Carbon Dioxide 27 mmol/L (23-31); Chloride 99 mmol/L (98-107); Estimated GFR-MDRD 86; Glucose 130 mg/dL (83-110); Potassium 3.7 mmol/L (3.5-5.1); Sodium 132 mmol/L (136-145)
[2019-09-04] MEDS: Pantoprazole 40 MG VIAL IVP SCH (08:38)
[2019-09-04] MEDS: Enoxaparin Sodium 40 MG/0.4 ML SYRINGE SC SCH (08:38)
[2019-09-04] MEDS ORDERED: D5 1/2 NS w/20 mEq KCL 1,000 ML IV SCH (09:15)
--- NOTE | 2019-09-04 15:10 | PDOC.GSPN ---
Surgery Progress Note: Subj - Subjective Narrative: Patient is feeling better today. No more nausea or dry heaving. Still passing flatus. No bowel movements. NG output has been minimal. Abdomen is soft. Bowel sounds are still diminished. X Assessment/plan: Small bowel structure due to adhesions, with improving bowel function. NG was discontinued today and she was started on clear liquids. If she tolerates clear liquids we will advance her diet. She may be ready for discharge as soon as tomorrow. Surgery Progress Note: Obj - Vital signs Vital signs: Vital Signs - Most Recent Temp Pulse Resp BP Pulse Ox 97.9 F 105 H 20 166/95 H 94 L 09/04/19 12:44 09/04/19 12:44 09/04/19 12:44 09/04/19 12:44 09/04/19 12:44 Surgery Progress Note: Results - Labs Result Diagrams: 09/04/19 05:07 09/04/19 05:07 Lab results: Laboratory Results - last 24 hr 09/04/19 09/04/19 05:07 05:07 WBC 13.6 H RBC 4.46 Hgb 13.5 Hct 39.9 MCV 89.6 MCH 30.3 MCHC 33.9 RDW 11.9 Plt Count 261 MPV 7.3 L Neutrophils % 73.5 Lymphocytes % 15.7 L Monocytes % 6.9 Eosinophils % 3.9 Basophils % 0.0 Neutrophils # 10.0 H Lymphocytes # 2.1 Monocytes # 0.9 H Eosinophils # 0.5 Basophils # 0.0 Sodium 132 L Potassium 3.7 Chloride 99 Carbon Dioxide 27 Anion Gap 10 BUN 4 L Creatinine 0.66 Estimated GFR (MDRD) 86 Glucose 130 H Calcium 8.5
--- NOTE | 2019-09-04 15:58 | PQF ---
VENTURA KAT KIMIYE MD [id number] [id number]- [id number] CLINICAL DOCUMENTATION IMPROVEMENT CLARIFICATION FORM: ICD-10 Updated PLEASE DO AN ADDENDUM TO THE PROGRESS NOTE WITH ANY DOCUMENTATION UPDATES OR ADDITIONS AND CARRY THROUGH TO DC SUMMARY. THANK YOU. DATE: 09/04/19 ATTN: Dr. Hernandez Please exercise your independent, professional judgment in responding to the clarification form. Clinical indicators are provided on the bottom of this form for your review Please check appropriate box(s): [ x ] Hyponatremia please specify etiology, if known __chronic pre-existing, etiology unknown [ ] Hyponatremia due to SIADH (Syndrome of Inappropriate Secretion of Antidiuretic Hormone) [ ] Other diagnosis [ ] Unable to determine In addition, please specify: Present on Admission (POA): [ x] Yes [ ] No [ ] Unable to determine CLINICAL INDICATORS - SIGNS / SYMPTOMS / LABS / RESULTS AND LOCATION IN EMR Na level--> 09/01 NA 134; 09/02 NA 134; 09/03 NA 133; 09/04 NA 132 per labs RISK FACTORS / RESULTS AND LOCATION IN EMR Dehydration-->09/04 (David): "Small bowel structure due to adhesions" NPO per orders 09/01 to 09/04 TREATMENTS / RESULTS AND LOCATION IN EMR IV fluids--> 09/01 NS at 100 per orders Daily electrolyte labs--> 09/01 to date per orders (This form is maintained as a part of the permanent medical record) 2014 [email or web address], [employer]. All Rights Reserved Rosy Luna, RN, BSN, [email or web address] [email or web address]
[2019-09-04] MEDS: Ondansetron PF 4 MG/2 ML Vial IVP PRN (18:36)
[2019-09-05] MEDS: Ondansetron PF 4 MG/2 ML Vial IVP PRN ×2 (00:40→15:36)
[2019-09-05] MEDS: Enoxaparin Sodium 40 MG/0.4 ML SYRINGE SC SCH (08:27)
[2019-09-05] MEDS: Pantoprazole 40 MG VIAL IVP SCH (08:28)
[2019-09-05] MEDS: D5 1/2 NS w/20 mEq KCL 1,000 ML IV SCH ×2 (08:56→17:00)
--- NOTE | 2019-09-05 09:31 | PDOC.OP ---
Operative Note - Operative Note Operative Note: PROCEDURE: Laparoscopic hand-assisted lysis of adhesions and repair of ventral incisional hernias SURGEON: Esdras Hernandez M.D. DATE: 09/02/2019 PREOPERATIVE DIAGNOSIS: Ventral incisional hernias and small bowel obstruction POSTOPERATIVE DIAGNOSIS: Ventral incisional hernias and small bowel obstruction due to adhesions HISTORY: Patient with history of Sorto's procedure and subsequent colostomy reversal who presented to the hospital with nausea vomiting and abdominal pain. She has a ventral incisional hernia at her midline incision which was easily reducible and nontender as well as a nonreducible fat-containing hernia at her old colostomy site. A trial of decompression and bowel rest resulted in initial improvement but then her abdominal pain and nausea returned so she was taken to the operating room. PROCEDURE IN DETAIL: After informed consent was obtained and appropriate preoperative antibiotics were administered the patient was taken to the operating room where she was placed in supine position and general endotracheal anesthesia was administered. She was prepped and draped in a standard sterile fashion. An incision was made over the colostomy site hernia and dissection carried down to the hernia site. This was dissected free circumferentially and opened. The fascial defect was very small, measuring only about 5 mm in size. The omentum within the hernia sac was reduced into the abdominal cavity and a 5 mm trocar placed into the abdominal cavity and carbon dioxide gas insufflated to an intra-abdominal pressure of 15 which the patient tolerated well. Dissecting trochars were placed under direct laparoscopic vision. There were no adhesions to the anterior abdominal wall and the ventral incisional hernia at the midline was empty. The patient was noted to have distended but viable loops of small bowel. On examination she had very dense adhesions between these loops of bowel which could not be addressed in a strictly laparoscopic manner, so the decision was made to place a hand port through the ventral incisional hernia at the midline to allow safe adhesiolysis. A 6 cm incision was made incorporating the ventral incisional hernia into the incision. A GelPort was placed and the adhesions carefully examined. The area of adhesions was not mobile enough to reach up to the midline incision due to a tight adhesion which was tethering the bowel to the retroperitoneum. This adhesion was identified and divided with LigaSure. Following this the area of dense adhesions was able to be mobilized out through the wound protector and the dense adhesions taken down through the avascular plane under direct vision. This required careful and meticulous dissection as there were multiple dense adhesions between the loops of bowel. The transition point was identified. This appeared to be chronically compressed by the dense adhesive band which is been divided laparoscopically, but there was no stricture and the bowel dilated normally. The bowel was then run laparoscopically, distally to the ileocecal valve and no additional significant adhesions identified. As the bowel was run proximally, additional interloop adhesions were identified and divided. Some of these were very dense but were able to be mobilized and brought out through the wound protector and divided under direct vision. Some of the proximal adhesions were partially obstructing, with the proximal jejunum relatively decompressed. The small intestine was carefully run by externalizing it through the wound protector and carefully examining each area of adhesiolysis. No enterotomies or injuries were identified. The dilated small intestine was partially decompressed back into the stomach which was evacuated by NG suction. The distal small intestine was also dilating appropriately following the release of the obstruction. The abdomen was irrigated to clear and the bowel returned to its normal anatomic position. The patient had a short omentum but this was drawn down over the bowel contents as much as possible. The dissecting trochars were removed under laparoscopic vision and hemostasis confirmed. Seprafilm was placed to the abdomen underlying the hand port incision. The hernia sac at the midline ventral incisional hernia was resected and the fascia closed under direct vision with a running PDS suture. The hernia sac at the colostomy site was also resected and the defect closed under direct vision with a 0 Vicryl suture. The wounds were irrigated and the subcutaneous tissue at the midline reapproximated with interrupted 3-0 Monocryl sutures. The skin incisions were all closed with 4 -0 Monocryl sutures. Over 80% of the operating time was spent in adhesiolysis. The patient was extubated and taken to the recovery room in good condition. Estimated blood loss was minimal. There were no complications. There were no specimens.
--- NOTE | 2019-09-05 17:29 | PDOC.GSPN ---
Surgery Progress Note: Subj - Subjective Narrative: Patient had nausea and vomiting last night. She did all right this morning and then had some or nausea and vomiting after lunch. She thinks it may be a medication she received since the emesis has a medicinal taste. She is not currently nauseated or having pain Surgery Progress Note: Obj - Vital signs Vital signs: Vital Signs - Most Recent Temp Pulse Resp BP Pulse Ox 98.2 F 88 18 156/85 H 93 L 09/05/19 16:09 09/05/19 16:09 09/05/19 16:09 09/05/19 16:09 09/05/19 16:09 - Physical Exam Abdomen: soft, decreased bowel sounds, distended (Abdomen is more distended than yesterday and tympanitic to palpation. Bowel sounds are somewhat high- pitched) Surgery Progress Note: Results - Labs Result Diagrams: 09/04/19 05:07 09/04/19 05:07 Surgery Progress Note: A/P - Problem (1) Small bowel obstruction due to adhesions Current Visit: Yes Code(s): K56.50 - INTESTNL ADHESIONS, UNSP TO PARTIAL VERSUS COMPLETE OBST Status: Acute - Plan Plan: Patient is healing well from her surgery but has persistent nausea and vomiting. She also states that she is passing less flatus this morning. I suspect that she has a postoperative ileus and have put her back on bowel rest with ice chips only. Ordered abdominal films for tomorrow. I have encouraged frequent ambulation. If she has persistent nausea and vomiting while nothing by mouth then an NG tube will need to be placed.
--- NOTE | 2019-09-05 19:47 | RAD ---
SUPINE ABDOMEN: 09/05/19 HISTORY: NG tube placement. COMPARISON: 09/04/19. FINDINGS/IMPRESSION: NG tube passes through the EG junction and appears to overlie the region of the gastric fundus. Gas filled dilated loops of small bowel. There is scattered gas and stool in what appears to be a dis tended colon. Stool at the level of the rectum. POS: OFF
[2019-09-06] MEDS: D5 1/2 NS w/20 mEq KCL 1,000 ML IV SCH ×3 (04:02→16:02)
[2019-09-06 04:56] LABS: #Eosinphils 0.2 thou/uL (0.0-0.7); #Lymphocytes 1.6 thou/uL (1.20-3.40); #Monocytes 0.7 thou/uL (0.11-0.59); #Neutrophils 3.6 thou/uL (1.40-6.50); %Basophils 0.7 % (0.0-1.0); %Eosinophils 3.4 % (0.0-10.0); %Lymphocytes 25.6 % (21.0-51.0); %Monocytes 11.1 % (0.0-10.0); %Neutrophils 59.2 % (42.0-75.0); Hemoglobin 12.7 g/dL (12.0-16.0); Mean Corpuscular HGB CONC 33.7 g/dL (32.0-36.0); Mean Corpuscular Hemoglobin 29.8 pg (27.0-31.0); Mean Corpuscular Volume 88.5 fL (78.0-98.0); Mean Platelet Volume 6.7 fL (7.4-10.4); Platelet Count 282 thou/uL (130-400); RBC Distribution Width 11.7 % (11.5-14.5); Red Blood Cell (RBC) Count 4.26 mill/uL (4.20-5.40); White Blood Cell (WBC) Count 6.1 thou/uL (4.8-10.8)
[2019-09-06 05:22] LABS: ALT (SGPT) 10 U/L (8-55); AST (SGOT) 9 U/L (5-34); Alkaline Phosphatase 79 U/L (40-110); Anion Gap 7 mmol/L (10-20); BUN (Urea Nitrogen) 4 mg/dL (9.8-20.1); Bilirubin, Total 0.6 mg/dL (0.2-1.2); Calc. Creatinine Clearance 89 mL/min (70-130); Calcium 8.4 mg/dL (7.8-10.44); Carbon Dioxide 30 mmol/L (23-31); Chloride 97 mmol/L (98-107); Estimated GFR-MDRD Greater than 90; Globulin 2.6 g/dL (2.4-3.5); Glucose 143 mg/dL (83-110); Potassium 3.3 mmol/L (3.5-5.1); Protein, Total 5.6 g/dL (6.0-8.3); Sodium 131 mmol/L (136-145)
--- NOTE | 2019-09-06 08:00 | RAD ---
KUB: Date: 09/06/19 HISTORY: NG tube placement. FINDINGS: NG tube is present, the tip is in the left upper quadrant and in body region of stomach. There is continued gaseous distention of the abdomen. Mildly dilated small bowel loops, but air throu ghout the colon, at least to the level of the sigmoid. The air-filled colon is not grossly distended. The transition point in the sigmoid colon is just proximal to an anastomotic suture line in the sigm oid region. IMPRESSION: Continued gaseous distention of the abdomen with mildly dilated small bowel loops and gas throughout the colon to the level of the sigmoid where there is a transition area just proximal to an anastomoti c suture line. This may just be a transitory phenomenon. If there is suspicion of some underlying abn ormality that has developed at the level of the anastomosis, then repeat CT would be recommended. POS: TPC
[2019-09-06] MEDS: Enoxaparin Sodium 40 MG/0.4 ML SYRINGE SC SCH (08:52)
[2019-09-06] MEDS: Pantoprazole 40 MG VIAL IVP SCH (08:52)
[2019-09-06 09:06] LABS: Magnesium 1.5 mg/dL (1.6-2.6); Phosphorus 2.1 mg/dL (2.3-4.7)
--- NOTE | 2019-09-06 09:56 | PDOC.GSPN ---
Surgery Progress Note: Subj - Subjective Narrative: Patient is feeling better this morning. No further nausea and vomiting since NG was placed. She had almost 2 L out last night and the output in the canister right now is light green. She is passing gas and had a bowel movement this morning. Abdomen is still distended but less so than yesterday. Abdominal film shows gas throughout bowel down to area near anastomosis at sigmoid colon resection site where she had a previous stricture. The colon looks more distended today than the small bowel. Assessment/plan: Patient failed advancement of diet status post lysis of adhesions. She has a known stricture at her sigmoid resection site which has been dilated in the past and her colon looks distended down to this level. I'm concerned that she may have recurrent stricture. I discussed her case with gastroenterology and they recommend a limited Gastrografin enema to evaluate the area. It looks abnormal then flexible sigmoidoscopy can be considered. Hopefully this just represents an ileus. The patient hasn't had any oral intake and almost a week and I doubt she'll be able to take significant oral nutrition for at least a couple more days as I am going to place a PICC line and start TPN. Her prealbumin and albumin are both low. Her potassium phosphorus and magnesium are also low and these are being replaced. Surgery Progress Note: Obj - Vital signs Vital signs: Vital Signs - Most Recent Temp Pulse Resp BP Pulse Ox 97.7 F 76 18 122/78 92 L 09/06/19 08:19 09/06/19 08:19 09/06/19 08:19 09/06/19 08:19 09/06/19 08:19 Surgery Progress Note: Results - Labs Result Diagrams: 09/06/19 04:36 09/06/19 04:36 Lab results: Laboratory Results - last 24 hr 09/06/19 09/06/19 09/06/19 04:36 04:36 08:30 WBC 6.1 RBC 4.26 Hgb 12.7 Hct 37.7 MCV 88.5 MCH 29.8 MCHC 33.7 RDW 11.7 Plt Count 282 MPV 6.7 L Neutrophils % 59.2 Lymphocytes % 25.6 Monocytes % 11.1 H Eosinophils % 3.4 Basophils % 0.7 Neutrophils # 3.6 Lymphocytes # 1.6 Monocytes # 0.7 H Eosinophils # 0.2 Basophils # 0.0 Sodium 131 L Potassium 3.3 L Chloride 97 L Carbon Dioxide 30 Anion Gap 7 L BUN 4 L Creatinine 0.63 Estimated GFR (MDRD) Greater than 90 Glucose 143 H Calcium 8.4 Phosphorus 2.1 L Magnesium 1.5 L Total Bilirubin 0.6 AST 9 ALT 10 Alkaline Phosphatase 79 Serum Total Protein 5.6 L Albumin 3.0 L Globulin 2.6 Albumin/Globulin Ratio 1.2 Prealbumin 09/06/19 08:30 WBC RBC Hgb Hct MCV MCH MCHC RDW Plt Count MPV Neutrophils % Lymphocytes % Monocytes % Eosinophils % Basophils % Neutrophils # Lymphocytes # Monocytes # Eosinophils # Basophils # Sodium Potassium Chloride Carbon Dioxide Anion Gap BUN Creatinine Estimated GFR (MDRD) Glucose Calcium Phosphorus Magnesium Total Bilirubin AST ALT Alkaline Phosphatase Serum Total Protein Albumin Globulin Albumin/Globulin Ratio Prealbumin 12.0 L Surgery Progress Note: A/P - Problem (1) Small bowel obstruction due to adhesions Current Visit: Yes Code(s): K56.50 - INTESTNL ADHESIONS, UNSP TO PARTIAL VERSUS COMPLETE OBST Status: Acute
[2019-09-06] MEDS ORDERED: Potassium Phosphate 12 MMOL in Sodium Chloride 0.9% 100 ML IVPB SCH (10:45)
--- NOTE | 2019-09-06 14:28 | SPC ---
SPC CVP LINE PICC INITIAL >5: 09/06/2019 12:00 AM PROCEDURE: Peripherally placed 45 cm left dual-lumen PICC line. PICC Line Placement: The left arm was prepped and draped in sterile fashion. One percent lidocaine was used for local anesthetic. Under fluoroscopic and ultrasound guidance, the left basilic vein was patent and accessed with a micr opuncture needle. A guide wire was then advanced into the left basilic vein. A vascular sheath was then advanced over a guide wire, and a dual lumen PICC line was trimmed. The PICC line was then advanced into the central venous system. A final placement film demonstrates the tip of the catheter terminated in the caval-atrial junction. After confirmation of the catheter position, the catheter was sutured in place at the skin entry site . There was no immediate complication. Total fluoroscopic time 0.4 minutes. Total exposure 2119 mgray/sq cm IMPRESSION: Peripheral placement of a dual lumen power PICC line into the left basilic vein using fluoroscopic an d ultrasound guidance.
--- NOTE | 2019-09-06 15:44 | RAD ---
LIMITED CONTRAST ENEMA: 09/06/19 HISTORY: Evaluate for sigmoid stricture. FINDINGS/IMPRESSION: There is unobstructed retrograde flow of contrast in the rectum and to the splenic flexure. No obstru cting mass is seen. No significant narrowing of the sigmoid colon is seen to suggest a high grade str icture. POS: RODGER
[2019-09-06] MEDS ORDERED: Pharmacy to MANAGE TPN ELECTROLYTES IVPB PRN (17:42)
[2019-09-06] MEDS ORDERED: Fat Emulsion 250 ML, Multivitamins, Adult 10 ML, Multitrace-5 5 ML in D15W-AA 5% with L... IV SCH (22:00)
[2019-09-06] MEDS: Metoclopramide HCl 10 MG/2 ML VIAL IVP SCH (22:48)
--- NOTE | 2019-09-07 02:11 | CON ---
DATE OF CONSULTATION: CONSULTING PHYSICIAN: Dr. Esdras Hernandez. REASON FOR CONSULTATION: Ileus versus obstruction of the colon. HISTORY OF PRESENT ILLNESS: Ms. Bah is a pleasant 78-year-old female who was admitted to the hospital on 09/01, transferred from an outside facility with bowel obstruction treated initially with NG tube decompression. She had a previous history of sigmoid resection with previous dilatations of the anastomosis for stricturing at [facility], but that anastomosis had to be revised one time prior to that secondary to ischemia. Ultimately, she went to the operating room on 09/05, with removal of dense adhesions and takedown of the obstruction at the transition point, and hernias were repaired as well. repeat x-rays this morning with interval dilatation of the colon with concern for possible sigmoid transition point, there was no air in the rectum prior to that, though she had been passing gas. Reviewing the previous CAT scan, she did have anastomosis in the distal sigmoid area. It did appear to be no obstruction on the initial CAT scan with a decompressed colon. Today, a barium enema with Gastrografin was performed showing free flow of contrast of the splenic flexure. No evidence of stenosis or stricture at the previous anastomotic site in the sigmoid colon. Presently, she feels well. She is not passing gas yet, she just still has an NG tube in place, but she is hungry. PAST MEDICAL HISTORY: COPD, reflux, history of stricture, anastomosis of low sigmoid colon, dilated previously at [facility], hyperlipidemia. PAST SURGICAL HISTORY: Vane pouch procedure in July with subsequent take back for ischemia of anastomosis and she ultimately had then a reversal of colostomy in October. She has also had orthopedic surgeries, pelvic/right hip fractures, total abdominal hysterectomy, bilateral salpingo-oophorectomy, appendectomy, bilateral mastectomies. PAST SOCIAL HISTORY: Smoker in the distant past. No alcohol. No drug use. MEDICATIONS: Outpatient medications; 1. Spiriva. 2. P.r.n. tramadol. 3. Zocor. 4. MiraLAX. 5. There was one note that she was on Reglan in the outpatient setting, but I do not see that and she does not recognize that medicine. Present medications here in the hospital; 1. DuoNeb. 2. Cefoxitin. 3. Lovenox. 4. TPN. 5. Fentanyl p.r.n. 6. Zofran. 7. Protonix. 8. Throat lozenges. 9. Tramadol p.r.n. PHYSICAL EXAMINATION: GENERAL: She is resting comfortably in bed. She is not dyspneic or in distress at all. VITAL SIGNS: Temperature is 98, pulse 80, blood pressure is 139/69, O2 saturation 93% on nasal cannula. HEENT: Oropharynx is without lesions. NECK: Supple. LUNGS: Clear. HEART: Regular rate and rhythm without clicks, rubs, or murmurs. ABDOMEN: Soft. It is nontender, nondistended. Incision sites are clean and dry. There is really hypoactive bowel sounds. LABORATORY DATA: White count is 6.1 today, down from 13 yesterday; hemoglobin 12.7, platelet count 282. Sodium 131, potassium 3.3, BUN and creatinine of 4 and 0.6. Liver function tests normal except for phosphorus of 2 and magnesium 1.5. Prealbumin is 12. Electrolytes have been replaced today. Films reviewed. ASSESSMENT: 1. Small bowel obstruction status post lysis of adhesions and repair of hernias. 2. Ileus with worsening colon distention today, but no overt toxic distention. There was concern about possible transition zone with lack of air seen in the rectum; however, a Gastrografin enema today showed no signs of obstruction of her low sigmoid anastomosis. RECOMMENDATIONS: 1. Continue NG tube decompression. I agree with TPN. 2. We will add low-dose Reglan to see if she will tolerate that, but not add any motility agents such as neostigmine in light of her multiple abdominal surgeries in the past. We will follow along with you. Job ID: [id number]
[2019-09-07 04:41] LABS: Anion Gap 9 mmol/L (10-20); BUN (Urea Nitrogen) Less than 4 mg/dL (9.8-20.1); Calc. Creatinine Clearance 93 mL/min (70-130); Calcium 8.4 mg/dL (7.8-10.44); Carbon Dioxide 31 mmol/L (23-31); Chloride 99 mmol/L (98-107); Estimated GFR-MDRD Greater than 90; Glucose 111 mg/dL (83-110); Magnesium 1.8 mg/dL (1.6-2.6); Phosphorus 2.7 mg/dL (2.3-4.7); Potassium 3.1 mmol/L (3.5-5.1); Sodium 136 mmol/L (136-145)
[2019-09-07] MEDS: D5 1/2 NS w/20 mEq KCL 1,000 ML IV SCH ×3 (05:44→18:49)
[2019-09-07] MEDS: Metoclopramide HCl 10 MG/2 ML VIAL IVP SCH ×3 (06:17→22:07)
[2019-09-07] MEDS: Enoxaparin Sodium 40 MG/0.4 ML SYRINGE SC SCH (08:39)
[2019-09-07] MEDS: Pantoprazole 40 MG VIAL IVP SCH (08:40)
[2019-09-07] MEDS ORDERED: Potassium Chloride 40 MEQ in Sodium Chloride 0.9% 250 ML 250 ML IVPB SCH (09:30)
--- NOTE | 2019-09-07 09:56 | RAD ---
EXAM: Supine abdomen: INDICATIONS: Ileus COMPARISON: 09/06/2019 FINDINGS: There continues to be gas-filled dilated loops of small bowel in the midabdomen. Stool and gas is seen in the right: There is prominent stool in the rectum. NG tube appears adequately positioned. IMPRESSION: Persistent gas-filled small bowel distention
[2019-09-07 11:02] LABS: Anion Gap 11 mmol/L (10-20); BUN (Urea Nitrogen) Less than 4 mg/dL (9.8-20.1); Calc. Creatinine Clearance 90 mL/min (70-130); Calcium 8.7 mg/dL (7.8-10.44); Carbon Dioxide 30 mmol/L (23-31); Chloride 98 mmol/L (98-107); Estimated GFR-MDRD Greater than 90; Glucose 145 mg/dL (83-110); Potassium 3.3 mmol/L (3.5-5.1); Sodium 136 mmol/L (136-145)
--- NOTE | 2019-09-07 11:30 | PDOC.GSPN ---
Surgery Progress Note: Subj - Subjective Narrative: Patient is feeling okay. No nausea or vomiting with the NG tube in. She is passing some gas. She feels less distended. NG tube has almost a liter out yesterday. It is likely in color. Bowel sounds are still diminished but abdomen is soft and nontender. Her incisions seemed to be healing well. Electrolytes are okay. She is on TPN. Gastrografin enema showed a little narrowing near the anastomosis but not to the point that the road grader operator felt that dilation was necessary. Assessment/plan: Ileus status post extensive lysis of adhesions for small bowel obstruction. I'm going to leave the NG tube in for today. Her small bowel and colon both look gas filled distended today although less so than before and her NG output is pretty high. She is walking a lot and passing some gas. She had some small bowel movements as well. Gastroenterology started her on some Reglan yesterday and I have added MiraLAX as well. Continue TPN until she is able to tolerate adequate oral intake. Follow electrolytes. Surgery Progress Note: Obj - Vital signs Vital signs: Vital Signs - Most Recent Temp Pulse Resp BP Pulse Ox 97.9 F 80 14 128/75 92 L 09/07/19 07:45 09/07/19 07:45 09/07/19 07:45 09/07/19 07:45 09/07/19 08:40 Surgery Progress Note: Results - Labs Result Diagrams: 09/06/19 04:36 09/07/19 10:16 Lab results: Laboratory Results - last 24 hr 09/07/19 09/07/19 09/07/19 00:02 04:00 06:08 Sodium 136 Potassium 3.1 L Chloride 99 Carbon Dioxide 31 Anion Gap 9 L BUN Less than 4 L Creatinine 0.60 Estimated GFR (MDRD) Greater than 90 Glucose 111 H POC Glucose 113 H 118 H Calcium 8.4 Phosphorus 2.7 Magnesium 1.8 09/07/19 09/07/19 10:16 11:08 Sodium 136 Potassium 3.3 L Chloride 98 Carbon Dioxide 30 Anion Gap 11 BUN Less than 4 L Creatinine 0.62 Estimated GFR (MDRD) Greater than 90 Glucose 145 H POC Glucose 130 H Calcium 8.7 Phosphorus Magnesium Surgery Progress Note: A/P - Problem (1) Small bowel obstruction due to adhesions Current Visit: Yes Code(s): K56.50 - INTESTNL ADHESIONS, UNSP TO PARTIAL VERSUS COMPLETE OBST Status: Acute
[2019-09-07] MEDS: Polyethylene Glycol 3350 17 GM Packet PER TUBE SCH (12:23)
--- NOTE | 2019-09-07 19:16 | PRG ---
DATE OF SERVICE: 09/07/2019 SUBJECTIVE: Ms. Bah had 200 mL out through her NG tube today and 950 last night. She has had some scant flatus, but no bowel movements. Dr. Hernandez has given her some MiraLAX. She is tolerating Reglan. OBJECTIVE: VITAL SIGNS: Temperature is 98, pulse is 88, blood pressure 150/80. ABDOMEN: Soft and nontender. No bowel sounds are present. LABORATORY DATA: No CBC today. Electrolytes; sodium 136, potassium 3.3, BUN and creatinine 4 and 0.62. ASSESSMENT: Ileus, postoperative. Would continue NG tube suction at this time with minimal bowel sounds. We will see how she responds to the Reglan and the MiraLAX. She seems to be getting up to walking around and starting to have some flatus by her report. We will follow along with you. Job ID: [id number]
[2019-09-07] MEDS: FAT EMULSION IV SCH (22:07)
[2019-09-07] MEDS: MULTITRACE IV SCH (22:07)
[2019-09-07] MEDS: MULTIVITAMINS IV SCH (22:07)
[2019-09-07] MEDS: [UNRECOGNIZED DRUG - OTHER] IV SCH (22:07)
--- NOTE | 2019-09-07 23:26 | PRG ---
DATE OF SERVICE: 09/07/2019 SUBJECTIVE: The patient was seen this evening during rounds. She was lying on her left side and asleep with no signs of acute distress. Nursing reported no acute events. OBJECTIVE: VITAL SIGNS: Temperature 98.4, pulse 99, respirations 20, oxygen saturation 95% on room air, blood pressure 167/92. GENERAL: Well-appearing elderly female, lying on her left side, asleep with no signs of acute distress. PULMONARY: Equal chest rise and fall. No signs of acute respiratory distress. ASSESSMENT: 1. Status post lysis of adhesion and repair of ventral incisional hernia due to small-bowel obstruction and umbilical hernia. 2. Postop ileus, persistent. 3. History of sigmoid colectomy and colostomy, chronic obstructive pulmonary disease, and reflux. PLAN: Continue n.p.o. with TPN. Continue NG tube to suction. Continue physical and occupational therapy. The patient needs to mobilize as much as possible. Job ID: [id number]
[2019-09-08] MEDS: Ipratropium Bromide 2.5 ml Neb NEB SCH ×4 (01:15→18:33)
[2019-09-08 04:17] LABS: #Eosinphils 0.3 thou/uL (0.0-0.7); #Lymphocytes 2.1 thou/uL (1.20-3.40); #Monocytes 0.8 thou/uL (0.11-0.59); #Neutrophils 6.2 thou/uL (1.40-6.50); %Basophils 0.5 % (0.0-1.0); %Eosinophils 3.5 % (0.0-10.0); %Lymphocytes 22.1 % (21.0-51.0); %Monocytes 8.1 % (0.0-10.0); %Neutrophils 65.8 % (42.0-75.0); Hemoglobin 12.4 g/dL (12.0-16.0); Mean Corpuscular HGB CONC 33.5 g/dL (32.0-36.0); Mean Corpuscular Volume 89.4 fL (78.0-98.0); Mean Platelet Volume 6.5 fL (7.4-10.4); Platelet Count 306 thou/uL (130-400); RBC Distribution Width 11.6 % (11.5-14.5); Red Blood Cell (RBC) Count 4.12 mill/uL (4.20-5.40); White Blood Cell (WBC) Count 9.4 thou/uL (4.8-10.8)
[2019-09-08 04:55] LABS: ALT (SGPT) 13 U/L (8-55); AST (SGOT) 13 U/L (5-34); Albumin 3.3 g/dL (3.4-4.8); Alkaline Phosphatase 95 U/L (40-110); Anion Gap 9 mmol/L (10-20); BUN (Urea Nitrogen) 5 mg/dL (9.8-20.1); Bilirubin, Total 0.5 mg/dL (0.2-1.2); Calc. Creatinine Clearance 89 mL/min (70-130); Calcium 8.7 mg/dL (7.8-10.44); Carbon Dioxide 30 mmol/L (23-31); Chloride 100 mmol/L (98-107); Estimated GFR-MDRD Greater than 90; Globulin 2.7 g/dL (2.4-3.5); Glucose 121 mg/dL (83-110); Magnesium 1.8 mg/dL (1.6-2.6); Phosphorus 2.8 mg/dL (2.3-4.7); Potassium 3.5 mmol/L (3.5-5.1); Sodium 135 mmol/L (136-145)
[2019-09-08] MEDS: Metoclopramide HCl 10 MG/2 ML VIAL IVP SCH ×3 (05:17→22:41)
[2019-09-08] MEDS: D5 1/2 NS w/20 mEq KCL 1,000 ML IV SCH ×3 (05:20→22:38)
[2019-09-08] MEDS ORDERED: Non-Formulary Item 1 EACH (Tiotropium [Spiriva Handihaler] 18 MCG) INH SCH (09:00)
[2019-09-08] MEDS: Enoxaparin Sodium 40 MG/0.4 ML SYRINGE SC SCH (09:06)
[2019-09-08] MEDS: Pantoprazole 40 MG VIAL IVP SCH (09:07)
[2019-09-08] MEDS: Polyethylene Glycol 3350 17 GM Packet PER TUBE SCH (11:09)
[2019-09-08] MEDS: Neostigmine 0.5 MG in Syringe 0 ML SC SCH ×2 (11:10→15:57)
--- NOTE | 2019-09-08 12:39 | RAD ---
ABDOMEN TWO VIEWS: HISTORY: Abdominal pain. Recent surgery. COMPARISON: 09/07/2019 FINDINGS: Gas, stool and contrast material within the colon. Radiopaque suture rows over the pelvis. Gas-filled small bowel is apparent, less distended than on the prior study. Nasogastric tube no longe r visualized. No differential air-fluid levels or evidence of free subdiaphragmatic gas. IMPRESSION: 1. Improved radiographic appearance of small bowel gas pattern. Findings not suggestive of obstructi on. 2. Interval removal of nasogastric tube. POS: BST
--- NOTE | 2019-09-08 14:06 | PRG ---
DATE OF SERVICE: 09/08/2019 SUBJECTIVE: Ms. Bah had her NG tube removed this morning. She states she has not had a bowel movement, but is passing gas. She has no nausea. She was up walking, did well today. MEDICATIONS: Include; 1. DuoNeb. 2. Cefoxitin. 3. Lovenox. 4. TPN. 5. Reglan 10 IV q.8. 6. Neostigmine was ordered today by the surgical PA. 7. Protonix. 8. She is also on Ultram. 9. MiraLAX. OBJECTIVE: VITAL SIGNS: Temperature 98, pulse 90, and blood pressure 145/81. In's and out's; the patient had 950 mL out through her NG tube in the last 24 hours, 2825 in IV fluids, 1950 out total. LUNGS: Clear. HEART: Regular rate and rhythm. No murmurs. ABDOMEN: Soft and nontender. There is no palpable hepatosplenomegaly. There are no bowel sounds. LABORATORY DATA: White count 9, hemoglobin 12, and platelet count 306. Sodium 135, potassium 3.5, BUN and creatinine are 5 and 0.6. Liver function tests normal. ASSESSMENT: Ileus. X-ray from today looks about the same to me, maybe a little bit of improvement of the small bowel gas pattern. The colon is nondistended. She is passing some gas, which is encouraging. She has a little bit less NG tube output. Surgery has removed her NG tube and placed her on neostigmine. RECOMMENDATION: We will watch for complications of neostigmine as she has COPD, therefore it can increase respiratory secretions. Also, there is somewhat of a relative contraindication with neostigmine, although General Surgery is managing this and if they are comfortable with using it, I would defer to their judgment. We will follow from a distance. If I can be of any further assistance in the patient's care, please do not hesitate to contact me. Job ID: [id number]
--- NOTE | 2019-09-08 14:30 | PRG ---
DATE OF SERVICE: 09/08/2019 SUBJECTIVE: The patient was seen during morning rounds. The patient was currently ambulating with physical therapy without any difficulty. The patient reports that her pain is well controlled at this time. The patient is postop day #6, status post laparoscopic lysis of adhesions and repair of ventral incisional hernias. The patient has had a prolonged ileus. The patient reports passing gas, but has not had a bowel movement. OBJECTIVE: VITAL SIGNS: Blood pressure 145/81, temperature 98.5, pulse 90, respirations 16, SpO2 of 93% on room air. GENERAL: Well-appearing elderly female, awake, alert, in no distress. PULMONARY: Equal chest rise and fall, respirations even and unlabored. CARDIAC: Regular rate. Regular rhythm. ABDOMEN: Soft, nontender, nondistended. LABORATORY DATA: WBC is 9.4, RBC 4.12, hemoglobin 12.4, hematocrit 36.8. Sodium 135, potassium 3.5, chloride 100, creatinine 0.63, BUN 5, estimated GFR greater than 90, glucose 132, calcium 8.7, phosphorus 2.8, magnesium 1.8, albumin 3.3. DIAGNOSTICS: Abdominal x-ray, impression, improved radiographic appearance of small bowel gas pattern. Findings not suggestive of obstruction. Interval removal of gastric tube. ASSESSMENT AND PLAN: 1. Status post lysis of adhesions and repair of ventral incisional hernia due to small bowel obstruction and umbilical hernia. 2. Postop ileus, persistent. 3. History of sigmoid colon colectomy and colostomy, chronic obstructive pulmonary disease, and reflux. Continue n.p.o. status with TPN. Continue NG tube to suction. We will start the patient on neostigmine. We will continue to have the patient ambulate frequently. The patient is pending return of bowel function. The patient was examined by Dr. Salmeron during morning rounds. The plan was agreed by the patient. Job ID: [id number]
--- NOTE | 2019-09-08 22:11 | PRG ---
DATE OF SERVICE: 09/08/2019 SUBJECTIVE: The patient was seen this evening, getting ready for bed. She reported no acute events and pain was well controlled. She was started on Neostigmine today and had multiple large bowel movements afterwards. OBJECTIVE: VITAL SIGNS: Temperature 98.2, pulse 94, respirations 16, oxygen saturation 92% on room air, and blood pressure 145/87. GENERAL: Well-appearing elderly female, sitting up in bed with no signs of acute distress. PULMONARY: Equal chest rise and fall. No signs of acute respiratory distress. ASSESSMENT: 1. Postop day #6 status post laparoscopic lysis of adhesions and repair of ventral incisional hernia. 2. Small bowel obstruction, resolved. 3. Umbilical hernia, resolved. 4. Ileus, resolved. 5. History of segmental colectomy and colostomy. 6. Chronic obstructive pulmonary disease. 7. Reflux. PLAN: Continue current diet and pain regimen. Continue physical and occupational therapy. She will likely be advanced to a diet tomorrow. She had multiple bowel movements. Neostigmine was discontinued. Job ID: [id number]
[2019-09-08] MEDS: [UNRECOGNIZED DRUG - OTHER] IV SCH (22:38)
[2019-09-08] MEDS: MULTITRACE IV SCH (22:38)
[2019-09-08] MEDS: FAT EMULSION IV SCH (22:38)
[2019-09-08] MEDS: MULTIVITAMINS IV SCH (22:38)
[2019-09-09] MEDS: Ipratropium Bromide 2.5 ml Neb NEB SCH ×5 (00:56→22:07)
[2019-09-09] MEDS: Metoclopramide HCl 10 MG/2 ML VIAL IVP SCH ×3 (05:34→22:34)
[2019-09-09] MEDS: D5 1/2 NS w/20 mEq KCL 1,000 ML IV SCH ×3 (05:35→22:34)
[2019-09-09] MEDS: Pantoprazole 40 MG VIAL IVP SCH (08:31)
[2019-09-09] MEDS: Enoxaparin Sodium 40 MG/0.4 ML SYRINGE SC SCH (08:32)
[2019-09-09] MEDS: Polyethylene Glycol 3350 17 GM Packet PER TUBE SCH (11:41)
--- NOTE | 2019-09-09 17:09 | PRG ---
DATE OF SERVICE: 09/09/2019 SUBJECTIVE: The patient was seen this morning during rounds. The patient was ambulating with physical therapy without any difficulty. The patient's pain is well controlled at this time. The patient is postop day #7, status post laparoscopic lysis of adhesions, repair of ventral incisional hernia. The patient has had a prolonged ileus, started on neostigmine yesterday. The patient had several episodes of explosive bowel movements overnight. The patient voices no complaints or concerns at this time. The patient slept well overnight. The patient reports that she is still hungry. OBJECTIVE: VITAL SIGNS: Temperature 98.2, pulse 90, respirations 18, SpO2 of 95% on room air, blood pressure 115/74. GENERAL: Elderly female, well-appearing, awake, alert, no distress, ambulating well with physical therapy. PULMONARY: Equal chest rise and fall, respirations are even and unlabored, clear breath sounds. CARDIAC: Regular rate, regular rhythm. ABDOMEN: Soft, nontender, nondistended. LABORATORY DATA: No new labs to evaluate today. DIAGNOSTICS: There are no new diagnostics. ASSESSMENT: 1. Status post lysis of adhesions and repair of ventral incisional hernia due to small bowel perforation and umbilical hernia postop day #7. 2. Post op ileus, resolved. 3. History of sigmoid colon colectomy and colostomy, chronic obstructive pulmonary disease and reflux. PLAN: Continue supportive care. Remove NG tube. Start full liquid diet. Continue to have the patient work with physical therapy and ambulate frequently. The patient was examined by Dr. Salmeron during morning rounds. The plan was discussed with the patient who agrees. Job ID: [id number]
[2019-09-09] MEDS: FAT EMULSION IV SCH (22:35)
[2019-09-09] MEDS: [UNRECOGNIZED DRUG - OTHER] IV SCH (22:35)
[2019-09-09] MEDS: MULTIVITAMINS IV SCH (22:35)
[2019-09-09] MEDS: MULTITRACE IV SCH (22:35)
--- NOTE | 2019-09-10 01:13 | PRG ---
DATE OF SERVICE: 09/09/2019 SUBJECTIVE: The patient was seen this evening during rounds. She was ambulating to the restroom and she reported no acute events. She was advanced to a full liquid diet today and has been tolerating. OBJECTIVE: VITAL SIGNS: Temperature 98, pulse 88, respirations 16, oxygen saturation 92% on room air, blood pressure 169/107. GENERAL: Well-appearing elderly female with no signs of acute distress. PULMONARY: Equal chest rise and fall. No signs of acute respiratory distress. ASSESSMENT: 1. Postop day 7, status post laparoscopic lysis of adhesions and repair of ventral incisional hernia. 2. Small bowel obstruction, resolved. 3. Umbilical hernia, resolved. 4. Ileus, resolved. 5. History of sigmoid colectomy and colostomy, chronic obstructive pulmonary disease, and reflux. PLAN: Continue TPN and full liquid diet. Continue ambulating as much as possible. The patient will likely be advanced to a regular diet and at that time, TPN can be discontinued. These things will probably happen tomorrow. Job ID: [id number]
[2019-09-10] MEDS: D5 1/2 NS w/20 mEq KCL 1,000 ML IV SCH ×3 (06:10→14:12)
[2019-09-10] MEDS: Metoclopramide HCl 10 MG/2 ML VIAL IVP SCH ×3 (06:13→21:31)
[2019-09-10] MEDS: Ipratropium Bromide 2.5 ml Neb NEB SCH ×3 (07:44→19:41)
[2019-09-10] MEDS: Pantoprazole 40 MG VIAL IVP SCH (08:59)
[2019-09-10] MEDS: Enoxaparin Sodium 40 MG/0.4 ML SYRINGE SC SCH (08:59)
[2019-09-10] MEDS: Polyethylene Glycol 3350 17 GM Packet PER TUBE SCH (11:30)
--- NOTE | 2019-09-10 12:36 | PRG ---
DATE OF SERVICE: 09/10/2019 SUBJECTIVE: Ms. Bah is an 78-year-old woman who is postop day #8, status post laparoscopic lysis of adhesion and repair of ventral incisional hernia. The patient developed a prolonged postoperative adynamic ileus, which has since resolved. She is now tolerating diet. She is having bowel movement and passing flatus. She denies any nausea or vomiting. She remains on TPN, last bag in progress. Urinary output has been adequate. OBJECTIVE: VITAL SIGNS: Her vital signs this morning include blood pressure 136/79, pulse is 99, respiratory rate is 16, temperature 98.2 degrees Fahrenheit, oxygen saturation is 98% on room air. HEENT: Pupils equal, round, and reactive to light and accommodation. NECK: She has no jugular venous distention noted. HEART: Reveals regular rate and rhythm. LUNGS: Clear to auscultation bilaterally. ABDOMEN: Soft, nontender, and nondistended. Incisions are intact, clean, dry. She clearly has no peritoneal signs on examination. NEUROLOGIC: Reveals no focal deficits present. IMPRESSION: 1. Postoperative day #8, status post laparoscopic adhesiolysis. 2. Resolved postoperative adynamic ileus. PLAN: 1. Discontinue TPN after current bag. 2. Advance diet and activity. 3. Anticipate discharge within the next 24 hours. The patient will follow up with Dr. Hernandez in the [facility] for 2 weeks post discharge. Above findings and plan discussed with the patient who indicates understanding of information given. I have answered her questions. Job ID: [id number]
--- NOTE | 2019-09-10 23:30 | PRG ---
DATE OF SERVICE: 09/10/2019 SUBJECTIVE: The patient was seen this evening, lying in bed with no signs of acute distress. She reported her pain is well controlled, tolerating a regular diet. OBJECTIVE: VITAL SIGNS: Temperature 97.5, pulse 95, respirations 16, oxygen saturation 95% on room air, blood pressure 136/83. GENERAL: Well-appearing elderly female, lying in bed with no signs of acute distress. PULMONARY: Equal chest rise and fall. No signs of acute respiratory distress. ASSESSMENT: 1. Postoperative day #8 status post laparoscopic lysis of adhesion and repair of ventral hernia due to small-bowel obstruction and umbilical hernia. 2. Ileus, resolved. 3. History of segmental colostomy and colectomy, chronic obstructive pulmonary disease and reflux. PLAN: 1. Continue regular diet. 2. Discontinue IV fluids and TPN. 3. The patient will likely be discharged home tomorrow, if she can maintain her blood sugar and continues to tolerate her regular diet. Job ID: [id number]
[2019-09-11] MEDS: Ipratropium Bromide 2.5 ml Neb NEB SCH ×3 (00:37→13:12)
[2019-09-11] MEDS: Metoclopramide HCl 10 MG/2 ML VIAL IVP SCH (05:45)
[2019-09-11 06:12] LABS: ALT (SGPT) 20 U/L (8-55); AST (SGOT) 14 U/L (5-34); Albumin 3.4 g/dL (3.4-4.8); Alkaline Phosphatase 124 U/L (40-110); Anion Gap 10 mmol/L (10-20); BUN (Urea Nitrogen) 11 mg/dL (9.8-20.1); Bilirubin, Total 0.4 mg/dL (0.2-1.2); Calc. Creatinine Clearance 83 mL/min (70-130); Calcium 9.1 mg/dL (7.8-10.44); Carbon Dioxide 28 mmol/L (23-31); Chloride 99 mmol/L (98-107); Estimated GFR-MDRD 85; Globulin 2.9 g/dL (2.4-3.5); Glucose 111 mg/dL (83-110); Magnesium 1.7 mg/dL (1.6-2.6); Phosphorus 3.8 mg/dL (2.3-4.7); Potassium 3.9 mmol/L (3.5-5.1); Protein, Total 6.3 g/dL (6.0-8.3); Sodium 133 mmol/L (136-145)
[2019-09-11] MEDS: Enoxaparin Sodium 40 MG/0.4 ML SYRINGE SC SCH (08:32)
[2019-09-11] MEDS: Pantoprazole 40 MG VIAL IVP SCH (08:32)
[2019-09-11 12:02] VITALS: BP 134/78; TEMP 98.1
[2019-09-11] MEDS: Polyethylene Glycol 3350 17 GM Packet PER TUBE SCH (12:56)
--- NOTE | 2019-09-11 18:46 | DIS ---
DATE OF ADMISSION: 09/01/2019 DATE OF DISCHARGE: 09/11/2019 ADMISSION DIAGNOSES: 1. Small-bowel obstruction. 2. Ventral hernia. CONSULTATION: Gastroenterology, Dr. Hawk. PROCEDURES: Laparoscopic hand-assisted lysis of adhesion and repair of ventral incisional hernia. HOSPITAL COURSE: The patient is an 78-year-old woman, who was admitted to the hospital with complaint of abdominal pain, nausea, and vomiting. In the emergency room, she underwent evaluation and examination and was noted to have small-bowel obstruction and a ventral hernia. Small-bowel obstruction was treated with NG tube, decompression. Then, she would undergo her above procedure. Afterwards, she had a prolonged adynamic ileus requiring NG tube suctioning and TPN for nutrition. Her ileus would eventually resolve. She was able to discontinue her TPN. She was able to, at the time of discharge, tolerate a diet. She was ambulating. Her pain was relieved and she will follow up with Dr. Hernandez in 14 days, sooner as needed. Job ID: [id number]
== END 2019-09-11 13:48 | disposition home or self-care (01) | DRG 336 ==
LOC: ERS 04:35 → SURG B 06:54
PROVIDERS: ADMIT Surgery; ATTEND Emergency Medicine
PROC: 0DNU4ZZ Release Omentum, Percutaneous Endoscopic Approach (ICD-10-PCS; principal; 2019-09-02)
PROC: 0WQF4ZZ Repair Abdominal Wall, Percutaneous Endoscopic Approach (ICD-10-PCS; 2019-09-02)
PROC: 02HV33Z Insertion of Infusion Device into Superior Vena Cava, Percutaneous Approach (ICD-10-PCS; 2019-09-06)
PROC: B5181ZA Fluoroscopy of Superior Vena Cava using Low Osmolar Contrast, Guidance (ICD-10-PCS; 2019-09-06)
PROC: B548ZZA Ultrasonography of Superior Vena Cava, Guidance (ICD-10-PCS; 2019-09-06)
DX: K44.0 Diaphragmatic hernia with obstruction, without gangrene (principal); E87.1 Hypo-osmolality and hyponatremia; K56.7 Ileus, unspecified; K56.50 Intestinal adhesions [bands], unspecified as to partial versus complete obstruction; E78.5 Hyperlipidemia, unspecified; E78.00 Pure hypercholesterolemia, unspecified; J44.9 Chronic obstructive pulmonary disease, unspecified; I10 Essential (primary) hypertension; K21.9 Gastro-esophageal reflux disease without esophagitis; E86.0 Dehydration; Z90.49 Acquired absence of other specified parts of digestive tract; Z90.710 Acquired absence of both cervix and uterus; Z93.3 Colostomy status; Z87.891 Personal history of nicotine dependence; Z90.13 Acquired absence of bilateral breasts and nipples
CPT/HCPCS: 36415; 36416; 36569; 71045; 74018; 74019; 74177; 74280; 80048; 80053; 82550; 83690; 83735; 84100; 84134; 84484; 85025; 93005; 94640; 96365; 96372; 96374; 96375; C1751; C9113; J0131; J0500; J0694; J1644; J1650; J1885; J2001; J2405; J2704; J2710; J2765; J3010; J3475; J3480; J3490; J7050; J7620; Q9967; S0020

== ENCOUNTER 2020-11-07 18:32 | Emergency (ER) | payer MEDICARE ==
[~2020-11-07 18:32] MED LIST changes: -ISOVUE-370 76%-LOCM 1 ML ONE; -Iopamidol 370 76% 50 ML VIAL FS ONE; +Iopamidol-370 76% 500 ML 1 ML ONE
[2020-11-07 21:25] LABS: #Basophils 0.1 thou/uL (0.0-0.2); #Eosinphils 0.1 thou/uL (0.0-0.7); #Lymphocytes 1.8 thou/uL (1.20-3.40); #Monocytes 0.8 thou/uL (0.11-0.59); #Neutrophils 7.5 thou/uL (1.40-6.50); %Basophils 0.6 % (0.0-1.0); %Eosinophils 0.6 % (0.0-10.0); %Lymphocytes 17.2 % (21.0-51.0); %Monocytes 8.2 % (0.0-10.0); %Neutrophils 73.3 % (42.0-75.0); Hemoglobin 13.7 g/dL (12.0-16.0); Mean Corpuscular Hemoglobin 31.7 pg (27.0-31.0); Mean Platelet Volume 8.2 fL (7.4-10.4); Platelet Count 188 thou/uL (130-400); RBC Distribution Width 12.1 % (11.5-14.5); Red Blood Cell (RBC) Count 4.32 mill/uL (4.20-5.40); White Blood Cell (WBC) Count 10.2 thou/uL (4.8-10.8)
[2020-11-07 21:45] LABS: ALT (SGPT) 21 U/L (8-55); AST (SGOT) 29 U/L (5-34); Albumin 4.1 g/dL (3.4-4.8); Alkaline Phosphatase 102 U/L (40-110); Anion Gap 12 mmol/L (10-20); BUN (Urea Nitrogen) 10 mg/dL (9.8-20.1); Bilirubin, Total 0.8 mg/dL (0.2-1.2); Calc. Creatinine Clearance 0 mL/min (70-130); Carbon Dioxide 26 mmol/L (23-31); Chloride 88 mmol/L (98-107); Globulin 2.8 g/dL (2.4-3.5); Glucose 111 mg/dL (83-110); Lipase 9 U/L (8-78); Protein, Total 6.9 g/dL (5.8-8.1); Sodium 123 mmol/L (136-145)
[2020-11-07 21:48] LABS: Potassium 2.9 mmol/L (3.5-5.1)
[2020-11-07] MEDS ORDERED: Potassium Chloride 20 MEQ TAB ONE ×2 (23:17)
--- NOTE | 2020-11-07 23:19 | CT ---
Abdomen and pelvis CT: 11/07/2020 COMPARISON: 09/01/2019 HISTORY: Constipation TECHNIQUE: Axial CT imaging at 5 mm intervals from lung bases through pubic symphysis with IV contras t. Coronal and sagittal reformatted imaging obtained. FINDINGS: Incompletely visualized coronary arterial calcification noted. Imaged lung bases demonstrat e no acute findings. No free intraperitoneal air or fluid. The liver, gallbladder, spleen, pancreas, adrenal glands, and kidneys demonstrate no acute findings. Splenic granulomata noted. Stable adrenal nodule on the left measures 1.4 cm. There is postoperative hardware within the proximal right femur. The uterus appears surgically absent. There is a distal colonic suture line present. There are scatte red areas of stool within a nondistended colon. There is diverticulosis of the right colon with no evidence for diverticulitis. There is no evidence for large or small bowel obstruction. There is a retroaortic left renal vein. There is scattered atherosclerotic calcification of the abdom inal aorta and its branches. No abdominal or pelvic lymphadenopathy is apparent. Review of the osseous structures demonstrates no acute findings. Multilevel lumbar spine degenerative change presen t. IMPRESSION: Numerous chronic findings as detailed above. No acute findings are seen within the abdome n/pelvis.
== END 2020-11-07 23:55 | disposition home or self-care (01) ==
LOC: ERS 18:32
DX: R10.9 Unspecified abdominal pain (principal); R10.817 Generalized abdominal tenderness; E78.5 Hyperlipidemia, unspecified; E78.00 Pure hypercholesterolemia, unspecified; I10 Essential (primary) hypertension; Z87.891 Personal history of nicotine dependence; Z79.899 Other long term (current) drug therapy
CPT/HCPCS: 36415; 74177; 80053; 83690; 85025; Q9967

== ENCOUNTER 2020-11-14 07:14 | Emergency (ER) | payer MEDICARE ==
--- NOTE | 2020-11-14 08:36 | CT ---
HEAD CT WITHOUT CONTRAST: DATE: 11/14/2020. COMPARISON: None. HISTORY: Fall, nausea and vomiting, trauma. TECHNIQUE: Axial CT imaging at 2.5 mm intervals from vertex through the skull base without contrast. Coronal an d sagittal reformatted imaging obtained. FINDINGS: The visualized paranasal sinuses and mastoid air cells appear well aerated. There is no displaced ca lvarial fracture. There are 2 focal areas of hyperdensity within the scalp, one posteriorly in the occipital region on the left measuring 3.1 cm and one in the occipital region posteriorly on the right measuring 1.2 cm, suggesting areas of scalp hemorrhage. No intracranial hemorrhage, midline shift, or mass effect. Periventricular, deep, and subcortical wh ite matter hypodensity noted, evidence of small-vessel disease. IMPRESSION: Findings suggesting bilateral posterior occipital scalp hematomas, left larger than right. No associ ated intracranial hemorrhage or displaced calvarial fracture. POS: [facility]
== END 2020-11-14 09:01 | disposition home or self-care (01) ==
LOC: ERS 07:14
DX: S00.03XA Contusion of scalp, initial encounter (principal); R11.2 Nausea with vomiting, unspecified; E78.5 Hyperlipidemia, unspecified; E78.00 Pure hypercholesterolemia, unspecified; I10 Essential (primary) hypertension; J44.9 Chronic obstructive pulmonary disease, unspecified; Z87.891 Personal history of nicotine dependence; Z79.899 Other long term (current) drug therapy; W01.0XXA Fall on same level from slipping, tripping and stumbling without subsequent striking against object, initial encounter
CPT/HCPCS: 70450

== ENCOUNTER 2020-11-15 16:16 | Inpatient (IN) | payer MEDICARE ==
[2020-11-15 17:51] LABS: #Basophils 0.1 thou/uL (0.0-0.2); #Eosinphils 0.1 thou/uL (0.0-0.7); #Lymphocytes 1.3 thou/uL (1.20-3.40); #Monocytes 1.1 thou/uL (0.11-0.59); #Neutrophils 11.3 thou/uL (1.40-6.50); %Basophils 0.4 % (0.0-1.0); %Eosinophils 0.4 % (0.0-10.0); %Lymphocytes 9.2 % (21.0-51.0); %Monocytes 8.1 % (0.0-10.0); %Neutrophils 81.9 % (42.0-75.0); Hemoglobin 13.9 g/dL (12.0-16.0); Mean Corpuscular HGB CONC 36.3 g/dL (32.0-36.0); Mean Corpuscular Hemoglobin 30.5 pg (27.0-31.0); Platelet Count 233 thou/uL (130-400); RBC Distribution Width 11.6 % (11.5-14.5); Red Blood Cell (RBC) Count 4.57 mill/uL (4.20-5.40); White Blood Cell (WBC) Count 13.8 thou/uL (4.8-10.8)
[2020-11-15 17:57] LABS: Bacteria/HPF 2+ HPF (None Seen); Bilirubin Negative (Negative); Blood, Urine 2+ (Negative); Clarity Turbid (Clear); Glucose, Urine (Dipstick) Normal (Negative); Ketone, Urine 60 mg/dL (Negative); Leukocyte 500 Leu/uL (Negative); Nitrite Negative (Negative); Protein, Urine (Dipstick) 20 mg/dL (Neg-Trace); Specific Gravity, Urine 1.013 (1.002-1.036); Urobilinogen Normal mg/dL (Less than 2); WBC/HPF 21-50 HPF (0-3); pH, Urine 6.5 (5.0-9.0)
[2020-11-15 18:10] LABS: ALT (SGPT) 48 U/L (8-55); AST (SGOT) 71 U/L (5-34); Albumin 3.8 g/dL (3.4-4.8); Alkaline Phosphatase 106 U/L (40-110); Anion Gap 17 mmol/L (10-20); BUN (Urea Nitrogen) 9 mg/dL (9.8-20.1); Bilirubin, Total 1.5 mg/dL (0.2-1.2); CK (CPK) 1082 U/L (29-168); Calc. Creatinine Clearance 0 mL/min (70-130); Calcium 8.3 mg/dL (7.8-10.44); Carbon Dioxide 26 mmol/L (23-31); Globulin 2.5 g/dL (2.4-3.5); Glucose 122 mg/dL (83-110); Magnesium 1.6 mg/dL (1.6-2.6); Protein, Total 6.3 g/dL (5.8-8.1)
[2020-11-15 18:14] LABS: Chloride 69 mmol/L (98-107); Potassium 2.7 mmol/L (3.5-5.1); Sodium 109 mmol/L (136-145)
[2020-11-15] MEDS ORDERED: Potassium Chloride 20 MEQ TAB ONE (22:25)
[2020-11-15] MEDS ORDERED: Acetaminophen 500 MG TAB ONE (22:25)
[2020-11-15] MEDS ORDERED: Cefepime 2 GM VIAL ONE (22:25)
[2020-11-15] MEDS ORDERED: NS 0.9% w/ 40 MEQ KCL 1,000 ML IV SCH (22:30)
[2020-11-15 23:24] LABS: Anion Gap 14 mmol/L (10-20); BUN (Urea Nitrogen) 11 mg/dL (9.8-20.1); Calc. Creatinine Clearance 0 mL/min (70-130); Calcium 7.9 mg/dL (7.8-10.44); Carbon Dioxide 29 mmol/L (23-31); Glucose 103 mg/dL (83-110)
[2020-11-15 23:30] LABS: Chloride 71 mmol/L (98-107); Potassium 2.5 mmol/L (3.5-5.1); Sodium 111 mmol/L (136-145)
[2020-11-15 23:33] LABS: Sodium 109 mmol/L (136-145)
[2020-11-16] MEDS ORDERED: Potassium Chloride 20 MEQ TAB PO SCH (01:30)
[2020-11-16] MEDS ORDERED: Lactated Ringer's 1,000 ML IV SCH (03:45)
[2020-11-16] MEDS ORDERED: Magnesium 2 GM/50 ML 2 GM in Premix Bag 1 BAG IVPB SCH ×2 (04:00→06:45)
[2020-11-16] MEDS ORDERED: Electrolyte Replacement Protocol 1 EACH FS SCH ×2 (04:00→07:15)
[2020-11-16 04:28] LABS: SARS-CoV-2 PCR by NAA Not Detected (NotDetected)
[2020-11-16] MEDS ORDERED: Potassium Chloride 40 MEQ in Sodium Chloride 0.9% 250 ML 250 ML IVPB SCH (04:30)
[2020-11-16 05:17] LABS: #Basophils 0.1 thou/uL (0.0-0.2); #Eosinphils 0.1 thou/uL (0.0-0.7); #Lymphocytes 1.9 thou/uL (1.20-3.40); #Monocytes 1.2 thou/uL (0.11-0.59); #Neutrophils 8.2 thou/uL (1.40-6.50); %Eosinophils 0.9 % (0.0-10.0); %Lymphocytes 16.5 % (21.0-51.0); %Monocytes 10.1 % (0.0-10.0); %Neutrophils 71.5 % (42.0-75.0); Hemoglobin 12.3 g/dL (12.0-16.0); Mean Corpuscular HGB CONC 35.6 g/dL (32.0-36.0); Mean Corpuscular Hemoglobin 30.3 pg (27.0-31.0); Mean Corpuscular Volume 85.1 fL (78.0-98.0); Mean Platelet Volume 7.7 fL (7.4-10.4); Platelet Count 189 thou/uL (130-400); RBC Distribution Width 11.6 % (11.5-14.5); Red Blood Cell (RBC) Count 4.05 mill/uL (4.20-5.40); White Blood Cell (WBC) Count 11.4 thou/uL (4.8-10.8)
[2020-11-16 05:33] LABS: Anion Gap 14 mmol/L (10-20); BUN (Urea Nitrogen) 10 mg/dL (9.8-20.1); Calc. Creatinine Clearance 94 mL/min (70-130); Calcium 7.4 mg/dL (7.8-10.44); Carbon Dioxide 21 mmol/L (23-31); Chloride 80 mmol/L (98-107); Glucose 83 mg/dL (83-110); Magnesium 1.6 mg/dL (1.6-2.6); Potassium 3.1 mmol/L (3.5-5.1); Uric Acid 4.4 mg/dL (2.6-6.0)
[2020-11-16 05:48] LABS: Phosphorus 1.8 mg/dL (2.3-4.7); Sodium 112 mmol/L (136-145)
[2020-11-16] MEDS ORDERED: metroNIDAZOLE 500 MG in Premix Bag 1 BAG IVPB SCH (06:00)
[2020-11-16] MEDS: metroNIDAZOLE 500 MG in Premix Bag 1 BAG IVPB SCH ×3 (06:01→20:25)
[2020-11-16 06:03] LABS: Band 6 % (5-11); Eosinophils 1 % (0-10); Lymphocytes 11 % (21-51); Monocytes 9 % (0-10); Neutrophil 73 % (42-75)
[2020-11-16] MEDS ORDERED: Potassium Phosphate 15 MMOL in Sodium Chloride 0.9% 100 ML IVPB SCH (06:45)
[2020-11-16] MEDS ORDERED: Cepastat Lozenges 1 LOZ PO PRN (07:31)
[2020-11-16] MEDS ORDERED: Zolpidem Tartrate 5 MG TAB PO PRN (07:31)
[2020-11-16] MEDS ORDERED: Calcium Carbonate 500 MG ChewTAB PO PRN (07:31)
[2020-11-16] MEDS ORDERED: Loratadine 10 MG TAB PO PRN (07:31)
[2020-11-16] MEDS ORDERED: Bisacodyl 5 MG TAB PO PRN (07:31)
[2020-11-16] MEDS ORDERED: hydrALAZINE 20 MG/ML VIAL SLOW IVP PRN (07:31)
[2020-11-16] MEDS ORDERED: Loperamide HCl 2 MG CAP PO PRN (07:31)
[2020-11-16] MEDS ORDERED: Senokot S 8.6-50 MG TAB PO PRN (07:31)
[2020-11-16] MEDS ORDERED: Sodium Chloride 0.65% Nasal 44 ML BOT EA NARE PRN (07:31)
[2020-11-16] MEDS: cefTRIAXone\\ROCEPHIN 1 GM in Sodium Chloride 0.9% 100 ML IVPB SCH (07:50)
[2020-11-16 08:58] LABS: ALT (SGPT) 37 U/L (8-55); AST (SGOT) 54 U/L (5-34); Alkaline Phosphatase 83 U/L (40-110); Bilirubin, Direct 0.4 mg/dL (0.1-0.3); Bilirubin, Total 0.8 mg/dL (0.2-1.2); CK (CPK) 738 U/L (29-168); Protein, Total 5.2 g/dL (5.8-8.1)
[2020-11-16] MEDS: Enoxaparin Sodium 40 MG/0.4 ML SYRINGE SC SCH (09:34)
[2020-11-16] MEDS: Saccharomyces boulardii 250 MG CAP PO SCH (11:03)
[2020-11-16 11:40] LABS: Anion Gap 14 mmol/L (10-20); BUN (Urea Nitrogen) 8 mg/dL (9.8-20.1); Calc. Creatinine Clearance 100 mL/min (70-130); Calcium 7.5 mg/dL (7.8-10.44); Carbon Dioxide 24 mmol/L (23-31); Chloride 83 mmol/L (98-107); Glucose 83 mg/dL (83-110); Potassium 3.8 mmol/L (3.5-5.1)
[2020-11-16 11:47] LABS: Sodium 117 mmol/L (136-145)
[2020-11-16 12:00] LABS: Thyroid Stimulating Hormone 0.8358 uIU/mL (0.35-4.94)
[2020-11-16 13:22] LABS: Anion Gap 16 mmol/L (10-20); BUN (Urea Nitrogen) 9 mg/dL (9.8-20.1); Calc. Creatinine Clearance 102 mL/min (70-130); Calcium 7.6 mg/dL (7.8-10.44); Carbon Dioxide 23 mmol/L (23-31); Chloride 82 mmol/L (98-107); Glucose 68 mg/dL (83-110); Potassium 3.6 mmol/L (3.5-5.1)
[2020-11-16] MEDS ORDERED: Iopamidol-370 76% 500 ML 1 ML ONE (13:32)
[2020-11-16 13:55] LABS: Sodium 117 mmol/L (136-145)
[2020-11-16 15:10] LABS: Bacteria/HPF 4+ HPF (None Seen); Bilirubin Negative (Negative); Blood, Urine Trace (Negative); Clarity Turbid (Clear); Glucose, Urine (Dipstick) Normal (Negative); Ketone, Urine 40 mg/dL (Negative); Leukocyte Negative Leu/uL (Negative); Nitrite Negative (Negative); Protein, Urine (Dipstick) 20 mg/dL (Neg-Trace); Specific Gravity, Urine 1.012 (1.002-1.036); Squamous Epithelial None Seen HPF (0-3); Urobilinogen Normal mg/dL (Less than 2); pH, Urine 6.5 (5.0-9.0)
[2020-11-16 15:23] LABS: Anion Gap 13 mmol/L (10-20); BUN (Urea Nitrogen) 7 mg/dL (9.8-20.1); Calc. Creatinine Clearance 97 mL/min (70-130); Calcium 7.6 mg/dL (7.8-10.44); Carbon Dioxide 24 mmol/L (23-31); Chloride 85 mmol/L (98-107); Glucose 81 mg/dL (83-110)
[2020-11-16 15:28] LABS: Sodium 118 mmol/L (136-145)
[2020-11-16 15:34] LABS: Creatinine, Urine 55.87 mg/dL (47-110)
[2020-11-16 16:48] LABS: Anion Gap 14 mmol/L (10-20); BUN (Urea Nitrogen) 7 mg/dL (9.8-20.1); Calc. Creatinine Clearance 100 mL/min (70-130); Calcium 7.8 mg/dL (7.8-10.44); Carbon Dioxide 24 mmol/L (23-31); Chloride 86 mmol/L (98-107); Glucose 77 mg/dL (83-110); Potassium 3.9 mmol/L (3.5-5.1); Sodium 120 mmol/L (136-145)
[2020-11-16 22:46] LABS: Anion Gap 15 mmol/L (10-20); BUN (Urea Nitrogen) 6 mg/dL (9.8-20.1); Calc. Creatinine Clearance 102 mL/min (70-130); Calcium 7.8 mg/dL (7.8-10.44); Carbon Dioxide 24 mmol/L (23-31); Chloride 87 mmol/L (98-107); Glucose 72 mg/dL (83-110); Potassium 3.7 mmol/L (3.5-5.1); Sodium 122 mmol/L (136-145)
[2020-11-17] MEDS: metroNIDAZOLE 500 MG in Premix Bag 1 BAG IVPB SCH ×3 (04:03→20:06)
[2020-11-17] MEDS: cefTRIAXone\\ROCEPHIN 1 GM in Sodium Chloride 0.9% 100 ML IVPB SCH (05:33)
[2020-11-17 05:34] LABS: Anion Gap 14 mmol/L (10-20); BUN (Urea Nitrogen) 6 mg/dL (9.8-20.1); Calc. Creatinine Clearance 94 mL/min (70-130); Calcium 7.8 mg/dL (7.8-10.44); Carbon Dioxide 25 mmol/L (23-31); Chloride 86 mmol/L (98-107); Glucose 82 mg/dL (83-110); Potassium 3.3 mmol/L (3.5-5.1); Sodium 122 mmol/L (136-145)
[2020-11-17 05:35] LABS: #Basophils 0.1 thou/uL (0.0-0.2); #Eosinphils 0.1 thou/uL (0.0-0.7); #Lymphocytes 1.5 thou/uL (1.20-3.40); #Monocytes 1.1 thou/uL (0.11-0.59); #Neutrophils 7.1 thou/uL (1.40-6.50); %Eosinophils 1.5 % (0.0-10.0); %Lymphocytes 15.5 % (21.0-51.0); %Monocytes 10.6 % (0.0-10.0); %Neutrophils 71.5 % (42.0-75.0); Hemoglobin 13.4 g/dL (12.0-16.0); Mean Corpuscular HGB CONC 35.1 g/dL (32.0-36.0); Mean Corpuscular Volume 88.3 fL (78.0-98.0); Mean Platelet Volume 7.6 fL (7.4-10.4); Platelet Count 213 thou/uL (130-400); RBC Distribution Width 11.8 % (11.5-14.5); Red Blood Cell (RBC) Count 4.32 mill/uL (4.20-5.40)
[2020-11-17] MEDS ORDERED: Potassium Chloride 20 MEQ TAB PO SCH (08:00)
[2020-11-17 08:28] LABS: Magnesium 1.9 mg/dL (1.6-2.6)
[2020-11-17 08:42] LABS: Phosphorus 1.8 mg/dL (2.3-4.7)
[2020-11-17] MEDS: Enoxaparin Sodium 40 MG/0.4 ML SYRINGE SC SCH (09:05)
[2020-11-17] MEDS: Saccharomyces boulardii 250 MG CAP PO SCH (09:06)
[2020-11-17] MEDS: Nitrofurantoin Monohyd/M-Cryst 100 MG CAP PO SCH ×2 (10:15→20:07)
[2020-11-17] MEDS ORDERED: Potassium Phosphate 15 MMOL in Sodium Chloride 0.9% 250 ML 250 ML IVPB SCH (11:00)
[2020-11-17] MEDS ORDERED: Losartan 25 MG TAB PO SCH (16:00)
[2020-11-17] MEDS: Atorvastatin Calcium 20 MG TAB PO SCH (20:07)
[2020-11-18 02:51] LABS: Actual Bicarbonate (HCO3a) 26.3 mEq/L (22-28); Base Excess (BEa) 3.3 mEq/L (-2.0 to +3.0); CO2 Tension 34.9 mmHg (35.0-45.0); Calcium, Ionized (arterial) 1.11 mmol/L (1.12-1.30); Carboxyhemoglobin (COHb) 0.3 gm% (0.0-3.0); Hemoglobin (Hb) 13.2 g/dL (12.0-16.0); O2 Tension (PaO2), arterial 61.2 mmHg (> 60.0); Potassium - ABG Lab 3.76 mmol/L (3.70-5.30)
[2020-11-18 02:53] LABS: ALV-art Gradient 44.905 mmHg (0-20); Puncture Site RBA
[2020-11-18 02:56] LABS: #Basophils 0.1 thou/uL (0.0-0.2); #Eosinphils 0.2 thou/uL (0.0-0.7); #Lymphocytes 2.2 thou/uL (1.20-3.40); #Monocytes 0.9 thou/uL (0.11-0.59); #Neutrophils 6.6 thou/uL (1.40-6.50); %Eosinophils 2.3 % (0.0-10.0); %Lymphocytes 21.8 % (21.0-51.0); %Neutrophils 65.9 % (42.0-75.0); Hemoglobin 13.2 g/dL (12.0-16.0); Mean Corpuscular HGB CONC 35.7 g/dL (32.0-36.0); Mean Corpuscular Hemoglobin 31.4 pg (27.0-31.0); Platelet Count 243 thou/uL (130-400); RBC Distribution Width 11.9 % (11.5-14.5)
[2020-11-18] MEDS: metroNIDAZOLE 500 MG in Premix Bag 1 BAG IVPB SCH (03:35)
[2020-11-18 04:26] LABS: Anion Gap 19 mmol/L (10-20); BUN (Urea Nitrogen) 7 mg/dL (9.8-20.1); Calc. Creatinine Clearance 99 mL/min (70-130); Calcium 8.6 mg/dL (7.8-10.44); Carbon Dioxide 23 mmol/L (23-31); Chloride 91 mmol/L (98-107); Glucose 102 mg/dL (83-110); Potassium 3.9 mmol/L (3.5-5.1); Sodium 129 mmol/L (136-145)
[2020-11-18] MEDS: Enoxaparin Sodium 40 MG/0.4 ML SYRINGE SC SCH (08:47)
[2020-11-18] MEDS: Losartan 25 MG TAB PO SCH (08:47)
[2020-11-18] MEDS: Saccharomyces boulardii 250 MG CAP PO SCH (08:48)
[2020-11-18] MEDS: metroNIDAZOLE 500 MG TAB PO SCH ×3 (08:48→20:20)
[2020-11-18] MEDS: Nitrofurantoin Monohyd/M-Cryst 100 MG CAP PO SCH ×2 (08:48→20:20)
[2020-11-18] MEDS: ALPRAZolam 0.25 MG TAB PO PRN (10:30)
[2020-11-18] MEDS: methylPREDNISolone Sod Succ 40 MG VIAL IVP SCH ×2 (14:56→21:02)
[2020-11-18] MEDS: Mometasone 200 MCG/Formoterol 5 MCG 120 PUFF INHALER INH SCH (18:35)
[2020-11-18] MEDS: Atorvastatin Calcium 20 MG TAB PO SCH (20:20)
[2020-11-19] MEDS: methylPREDNISolone Sod Succ 40 MG VIAL IVP SCH ×2 (05:00→14:45)
[2020-11-19] MEDS: Mometasone 200 MCG/Formoterol 5 MCG 120 PUFF INHALER INH SCH ×2 (07:13→18:27)
[2020-11-19 08:02] LABS: Anion Gap 15 mmol/L (10-20); BUN (Urea Nitrogen) 8 mg/dL (9.8-20.1); Calc. Creatinine Clearance 104 mL/min (70-130); Carbon Dioxide 22 mmol/L (23-31); Chloride 94 mmol/L (98-107); Glucose 129 mg/dL (83-110); Potassium 4.3 mmol/L (3.5-5.1); Sodium 127 mmol/L (136-145)
[2020-11-19] MEDS: Nitrofurantoin Monohyd/M-Cryst 100 MG CAP PO SCH ×2 (09:38→20:11)
[2020-11-19] MEDS: Enoxaparin Sodium 40 MG/0.4 ML SYRINGE SC SCH (09:38)
[2020-11-19] MEDS: Vancomycin HCl 25 MG/ML Oral PO SCH ×5 (09:38→20:11)
[2020-11-19] MEDS: Losartan 25 MG TAB PO SCH (09:38)
[2020-11-19] MEDS: metroNIDAZOLE 500 MG TAB PO SCH ×2 (09:38→14:45)
[2020-11-19] MEDS: Saccharomyces boulardii 250 MG CAP PO SCH (09:39)
[2020-11-19] MEDS ORDERED: Sodium Chloride 0.9% 1,000 ML IV SCH (10:00)
[2020-11-19] MEDS: Sodium Chloride 0.9% 1,000 ML IV SCH (11:49)
[2020-11-19] MEDS: ALPRAZolam 0.25 MG TAB PO PRN (19:04)
[2020-11-19] MEDS: Atorvastatin Calcium 20 MG TAB PO SCH (20:11)
[2020-11-20] MEDS: Sodium Chloride 0.9% 1,000 ML IV SCH ×2 (05:06→08:35)
[2020-11-20 07:36] LABS: Anion Gap 14 mmol/L (10-20); BUN (Urea Nitrogen) 11 mg/dL (9.8-20.1); Calc. Creatinine Clearance 95 mL/min (70-130); Calcium 8.6 mg/dL (7.8-10.44); Carbon Dioxide 24 mmol/L (23-31); Chloride 95 mmol/L (98-107); Glucose 104 mg/dL (83-110); Potassium 3.8 mmol/L (3.5-5.1); Sodium 129 mmol/L (136-145)
[2020-11-20] MEDS: Mometasone 200 MCG/Formoterol 5 MCG 120 PUFF INHALER INH SCH ×2 (08:01→18:16)
[2020-11-20] MEDS: Vancomycin HCl 25 MG/ML Oral PO SCH ×4 (08:20→20:29)
[2020-11-20] MEDS: Saccharomyces boulardii 250 MG CAP PO SCH (08:21)
[2020-11-20] MEDS: Nitrofurantoin Monohyd/M-Cryst 100 MG CAP PO SCH ×2 (08:22→20:28)
[2020-11-20] MEDS: Enoxaparin Sodium 40 MG/0.4 ML SYRINGE SC SCH (08:22)
[2020-11-20] MEDS: Losartan 25 MG TAB PO SCH (08:22)
[2020-11-20] MEDS: predniSONE 20 MG TAB PO SCH (08:22)
[2020-11-20] MEDS: Atorvastatin Calcium 20 MG TAB PO SCH (20:28)
[2020-11-21] MEDS: Sodium Chloride 0.9% 1,000 ML IV SCH ×3 (02:30→22:16)
[2020-11-21 06:37] LABS: Anion Gap 14 mmol/L (10-20); BUN (Urea Nitrogen) 13 mg/dL (9.8-20.1); Calc. Creatinine Clearance 92 mL/min (70-130); Calcium 8.5 mg/dL (7.8-10.44); Carbon Dioxide 22 mmol/L (23-31); Chloride 98 mmol/L (98-107); Glucose 104 mg/dL (83-110); Potassium 3.8 mmol/L (3.5-5.1); Sodium 130 mmol/L (136-145)
[2020-11-21] MEDS: Nitrofurantoin Monohyd/M-Cryst 100 MG CAP PO SCH ×2 (08:13→22:15)
[2020-11-21] MEDS: Saccharomyces boulardii 250 MG CAP PO SCH (08:14)
[2020-11-21] MEDS: predniSONE 20 MG TAB PO SCH (08:14)
[2020-11-21] MEDS: Losartan 25 MG TAB PO SCH (08:14)
[2020-11-21] MEDS: Enoxaparin Sodium 40 MG/0.4 ML SYRINGE SC SCH (08:14)
[2020-11-21] MEDS: Mometasone 200 MCG/Formoterol 5 MCG 120 PUFF INHALER INH SCH ×2 (08:50→19:51)
[2020-11-21] MEDS: Vancomycin HCl 25 MG/ML Oral PO SCH ×4 (09:17→22:15)
[2020-11-21] MEDS ORDERED: levETIRAcetam 500 MG TAB PO SCH ×2 (12:45→21:00)
[2020-11-21 15:05] LABS: Mean Corpuscular HGB CONC 33.1 g/dL (32.0-36.0); Mean Corpuscular Hemoglobin 29.8 pg (27.0-31.0); Mean Corpuscular Volume 90.1 fL (78.0-98.0); Mean Platelet Volume 6.5 fL (7.4-10.4); Platelet Count 338 thou/uL (130-400); RBC Distribution Width 12.7 % (11.5-14.5); Red Blood Cell (RBC) Count 5.04 mill/uL (4.20-5.40)
[2020-11-21] MEDS ORDERED: Metoprolol Tartrate 5 MG/5 ML VIAL IVP PRN (21:28)
[2020-11-21 21:29] LABS: #Basophils 0.1 thou/uL (0.0-0.2); #Eosinphils 0.1 thou/uL (0.0-0.7); #Lymphocytes 2.6 thou/uL (1.20-3.40); #Monocytes 1.5 thou/uL (0.11-0.59); #Neutrophils 9.7 thou/uL (1.40-6.50); %Basophils 0.7 % (0.0-1.0); %Eosinophils 0.7 % (0.0-10.0); %Lymphocytes 18.5 % (21.0-51.0); %Monocytes 10.6 % (0.0-10.0); %Neutrophils 69.5 % (42.0-75.0); Hemoglobin 14.3 g/dL (12.0-16.0); Mean Corpuscular HGB CONC 34.6 g/dL (32.0-36.0); Mean Corpuscular Hemoglobin 31.1 pg (27.0-31.0); Mean Platelet Volume 6.7 fL (7.4-10.4); Platelet Count 316 thou/uL (130-400); RBC Distribution Width 12.6 % (11.5-14.5); Red Blood Cell (RBC) Count 4.61 mill/uL (4.20-5.40); White Blood Cell (WBC) Count 13.9 thou/uL (4.8-10.8)
[2020-11-21 21:51] LABS: Anion Gap 15 mmol/L (10-20); BUN (Urea Nitrogen) 17 mg/dL (9.8-20.1); Calc. Creatinine Clearance 80 mL/min (70-130); Calcium 8.9 mg/dL (7.8-10.44); Carbon Dioxide 21 mmol/L (23-31); Chloride 97 mmol/L (98-107); Glucose 162 mg/dL (83-110); Magnesium 1.6 mg/dL (1.6-2.6); Potassium 3.8 mmol/L (3.5-5.1); Sodium 129 mmol/L (136-145)
[2020-11-21] MEDS: Piperacillin/Tazobactam 4.5 GM in Sodium Chloride 0.9% 100 ML IVPB SCH (22:13)
[2020-11-21] MEDS: Atorvastatin Calcium 20 MG TAB PO SCH (22:15)
[2020-11-21 22:39] LABS: Bilirubin Negative (Negative); Blood, Urine 2+ (Negative); Calcium Oxalate Crystals Rare HPF (None Seen); Clarity Clear (Clear); Glucose, Urine (Dipstick) Normal (Negative); Ketone, Urine Negative (Negative); Leukocyte Negative Leu/uL (Negative); Mucous/LPF Rare LPF (<2+); Nitrite Negative (Negative); Protein, Urine (Dipstick) 20 mg/dL (Neg-Trace); Specific Gravity, Urine 1.022 (1.002-1.036); Squamous Epithelial None Seen HPF (0-3); Urobilinogen Normal mg/dL (Less than 2); WBC/HPF 0-3 HPF (0-3); pH, Urine 5.5 (5.0-9.0)
[2020-11-21 22:48] LABS: Bacteria/HPF Rare-Few HPF (None Seen)
[2020-11-21 22:49] LABS: Urine Culture Reflex No No
[2020-11-21] MEDS ORDERED: Vancomycin 1.5 GRAM/300 ML BAG 1.5 GM in Premix Bag 1 BAG IVPB SCH (23:00)
[2020-11-22] MEDS: Piperacillin/Tazobactam 4.5 GM in Sodium Chloride 0.9% 100 ML IVPB SCH ×3 (05:36→22:02)
[2020-11-22] MEDS: Mometasone 200 MCG/Formoterol 5 MCG 120 PUFF INHALER INH SCH ×2 (07:22→19:32)
[2020-11-22] MEDS ORDERED: Vancomycin 1 GM in Premix Bag 1 BAG IVPB SCH (09:00)
[2020-11-22] MEDS: predniSONE 20 MG TAB PO SCH (09:40)
[2020-11-22] MEDS: Enoxaparin Sodium 40 MG/0.4 ML SYRINGE SC SCH (09:40)
[2020-11-22] MEDS: Vancomycin HCl 25 MG/ML Oral PO SCH ×4 (09:40→20:24)
[2020-11-22] MEDS: Saccharomyces boulardii 250 MG CAP PO SCH (09:40)
[2020-11-22] MEDS: Losartan 25 MG TAB PO SCH (10:02)
[2020-11-22] MEDS: Nitrofurantoin Monohyd/M-Cryst 100 MG CAP PO SCH ×2 (10:02→20:23)
[2020-11-22] MEDS ORDERED: Sodium Chloride 1 GM TAB PO SCH (10:15)
[2020-11-22] MEDS ORDERED: Carvedilol 3.125 MG TAB PO SCH (11:00)
[2020-11-22] MEDS ORDERED: Furosemide 20 MG/2 ML VIAL SLOW IVP SCH (12:00)
[2020-11-22] MEDS: Carvedilol 3.125 MG TAB PO SCH ×2 (15:08→16:12)
[2020-11-22] MEDS: Atorvastatin Calcium 20 MG TAB PO SCH (20:22)
[2020-11-22] MEDS: Sodium Chloride 1 GM TAB PO SCH (20:23)
[2020-11-22] MEDS ORDERED: Metoprolol Tartrate 5 MG/5 ML VIAL IVP SCH (21:00)
[2020-11-22] MEDS: Vancomycin HCl 750 MG in Sodium Chloride 0.9% 250 ML 250 ML IVPB SCH (22:02)
[2020-11-23 01:24] LABS: Anion Gap 16 mmol/L (10-20); BUN (Urea Nitrogen) 17 mg/dL (9.8-20.1); Calc. Creatinine Clearance 79 mL/min (70-130); Calcium 9.1 mg/dL (7.8-10.44); Carbon Dioxide 20 mmol/L (23-31); Chloride 102 mmol/L (98-107); Glucose 128 mg/dL (83-110); Magnesium 1.8 mg/dL (1.6-2.6); Potassium 3.4 mmol/L (3.5-5.1); Sodium 135 mmol/L (136-145)
[2020-11-23 06:28] LABS: Anion Gap 14 mmol/L (10-20); BUN (Urea Nitrogen) 20 mg/dL (9.8-20.1); Calc. Creatinine Clearance 79 mL/min (70-130); Calcium 8.8 mg/dL (7.8-10.44); Carbon Dioxide 24 mmol/L (23-31); Chloride 102 mmol/L (98-107); Glucose 121 mg/dL (83-110); Potassium 3.2 mmol/L (3.5-5.1); Sodium 137 mmol/L (136-145)
[2020-11-23] MEDS: Piperacillin/Tazobactam 4.5 GM in Sodium Chloride 0.9% 100 ML IVPB SCH ×3 (06:44→22:13)
[2020-11-23] MEDS: Mometasone 200 MCG/Formoterol 5 MCG 120 PUFF INHALER INH SCH ×2 (07:45→18:55)
[2020-11-23] MEDS ORDERED: Carvedilol 6.25 MG TAB PO SCH ×3 (09:00→17:00)
[2020-11-23] MEDS: Sodium Chloride 1 GM TAB PO SCH ×2 (10:21→22:12)
[2020-11-23] MEDS: Saccharomyces boulardii 250 MG CAP PO SCH (10:21)
[2020-11-23] MEDS: predniSONE 20 MG TAB PO SCH (10:21)
[2020-11-23] MEDS: Enoxaparin Sodium 40 MG/0.4 ML SYRINGE SC SCH (10:22)
[2020-11-23] MEDS: Losartan 25 MG TAB PO SCH (10:23)
[2020-11-23] MEDS: Vancomycin HCl 25 MG/ML Oral PO SCH ×4 (10:26→22:13)
[2020-11-23] MEDS: Nitrofurantoin Monohyd/M-Cryst 100 MG CAP PO SCH ×2 (10:46→22:12)
[2020-11-23] MEDS: Vancomycin HCl 750 MG in Sodium Chloride 0.9% 250 ML 250 ML IVPB SCH (12:23)
[2020-11-23] MEDS ORDERED: Potassium Chloride 20 MEQ TAB PO SCH (12:45)
[2020-11-23] MEDS ORDERED: Digoxin 0.5 MG/2 ML AMP SLOW IVP SCH ×2 (18:15→20:15)
[2020-11-23] MEDS ORDERED: Digoxin 0.25 MG TAB PO SCH (21:00)
[2020-11-23] MEDS: Atorvastatin Calcium 20 MG TAB PO SCH (22:13)
[2020-11-23] MEDS: ALPRAZolam 0.25 MG TAB PO PRN (23:11)
[2020-11-24 04:22] LABS: Anion Gap 14 mmol/L (10-20); BUN (Urea Nitrogen) 22 mg/dL (9.8-20.1); Calc. Creatinine Clearance 73 mL/min (70-130); Calcium 9.1 mg/dL (7.8-10.44); Carbon Dioxide 24 mmol/L (23-31); Chloride 108 mmol/L (98-107); Glucose 151 mg/dL (83-110); Potassium 3.7 mmol/L (3.5-5.1); Sodium 142 mmol/L (136-145)
[2020-11-24] MEDS: Ondansetron PF 4 MG/2 ML Vial IVP PRN ×2 (05:23→19:50)
[2020-11-24] MEDS: Piperacillin/Tazobactam 4.5 GM in Sodium Chloride 0.9% 100 ML IVPB SCH (05:58)
[2020-11-24] MEDS: Mometasone 200 MCG/Formoterol 5 MCG 120 PUFF INHALER INH SCH ×2 (07:53→19:00)
[2020-11-24] MEDS: Saccharomyces boulardii 250 MG CAP PO SCH (08:41)
[2020-11-24] MEDS: Digoxin 0.125 MG TAB PO SCH (08:41)
[2020-11-24] MEDS: Vancomycin HCl 25 MG/ML Oral PO SCH ×4 (08:41→21:54)
[2020-11-24] MEDS: Enoxaparin Sodium 40 MG/0.4 ML SYRINGE SC SCH (08:42)
[2020-11-24 10:17] LABS: Vancomycin, Trough 1.4 ug/mL
[2020-11-24] MEDS: Atorvastatin Calcium 20 MG TAB PO SCH (21:54)
[2020-11-24] MEDS: Ondansetron ODT 4 MG TAB PO PRN (23:35)
[2020-11-25] MEDS: Ondansetron PF 4 MG/2 ML Vial IVP PRN (03:55)
[2020-11-25] MEDS: Mometasone 200 MCG/Formoterol 5 MCG 120 PUFF INHALER INH SCH ×2 (08:04→19:02)
[2020-11-25] MEDS: Digoxin 0.125 MG TAB PO SCH (09:24)
[2020-11-25] MEDS: Vancomycin HCl 25 MG/ML Oral PO SCH ×3 (09:24→16:43)
[2020-11-25] MEDS: Enoxaparin Sodium 40 MG/0.4 ML SYRINGE SC SCH (09:24)
[2020-11-25] MEDS: Saccharomyces boulardii 250 MG CAP PO SCH (09:24)
[2020-11-25] MEDS: Ondansetron ODT 4 MG TAB PO PRN (11:26)
[2020-11-26] MEDS: Atorvastatin Calcium 20 MG TAB PO SCH ×2 (01:26→22:21)
[2020-11-26] MEDS: Vancomycin HCl 25 MG/ML Oral PO SCH ×5 (01:27→22:21)
[2020-11-26 04:45] LABS: Hemoglobin 13.6 g/dL (12.0-16.0); Mean Corpuscular HGB CONC 32.4 g/dL (32.0-36.0); Mean Corpuscular Hemoglobin 29.9 pg (27.0-31.0); Mean Corpuscular Volume 92.3 fL (78.0-98.0); Mean Platelet Volume 7.1 fL (7.4-10.4); Platelet Count 269 thou/uL (130-400); RBC Distribution Width 12.7 % (11.5-14.5); Red Blood Cell (RBC) Count 4.55 mill/uL (4.20-5.40); White Blood Cell (WBC) Count 18.8 thou/uL (4.8-10.8)
[2020-11-26 04:58] LABS: ALT (SGPT) 19 U/L (8-55); AST (SGOT) 15 U/L (5-34); Albumin 3.3 g/dL (3.4-4.8); Alkaline Phosphatase 71 U/L (40-110); Anion Gap 15 mmol/L (10-20); BUN (Urea Nitrogen) 18 mg/dL (9.8-20.1); Calc. Creatinine Clearance 84 mL/min (70-130); Calcium 8.9 mg/dL (7.8-10.44); Carbon Dioxide 30 mmol/L (23-31); Chloride 94 mmol/L (98-107); Globulin 2.4 g/dL (2.4-3.5); Glucose 103 mg/dL (83-110); Potassium 3.3 mmol/L (3.5-5.1); Protein, Total 5.7 g/dL (5.8-8.1); Sodium 136 mmol/L (136-145)
[2020-11-26 05:04] LABS: Band 4 % (5-11); Lymphocytes 13 % (21-51); MDiff Complete? YES; Monocytes 3 % (0-10); Neutrophil 79 % (42-75); Platelet Morphology Comment Appears Adequate; RBC Morphology Normal; Reactive Lymphocytes 1 % (0-10)
[2020-11-26] MEDS: Mometasone 200 MCG/Formoterol 5 MCG 120 PUFF INHALER INH SCH ×2 (06:45→18:27)
[2020-11-26] MEDS ORDERED: Potassium Chloride 40 MEQ in Premix Bag 1 BAG IVPB SCH (09:00)
[2020-11-26 09:12] LABS: Magnesium 1.9 mg/dL (1.6-2.6); Phosphorus 3.5 mg/dL (2.3-4.7)
[2020-11-26] MEDS: Enoxaparin Sodium 40 MG/0.4 ML SYRINGE SC SCH (09:44)
[2020-11-26] MEDS: Saccharomyces boulardii 250 MG CAP PO SCH (09:45)
[2020-11-26] MEDS: Digoxin 0.125 MG TAB PO SCH (09:45)
[2020-11-26] MEDS: D5 NS w/ 40 mEq KCl 1,000 ML IV SCH ×2 (13:22→23:06)
[2020-11-27 04:12] LABS: #Eosinphils 0.2 thou/uL (0.0-0.7); #Lymphocytes 1.6 thou/uL (1.20-3.40); #Monocytes 0.9 thou/uL (0.11-0.59); #Neutrophils 8.8 thou/uL (1.40-6.50); %Basophils 0.1 % (0.0-1.0); %Eosinophils 1.5 % (0.0-10.0); %Lymphocytes 13.7 % (21.0-51.0); %Monocytes 7.6 % (0.0-10.0); %Neutrophils 77.1 % (42.0-75.0); Hemoglobin 13.5 g/dL (12.0-16.0); Mean Corpuscular HGB CONC 34.4 g/dL (32.0-36.0); Mean Corpuscular Hemoglobin 32.4 pg (27.0-31.0); Mean Corpuscular Volume 94.1 fL (78.0-98.0); Platelet Count 237 thou/uL (130-400); RBC Distribution Width 12.6 % (11.5-14.5); Red Blood Cell (RBC) Count 4.18 mill/uL (4.20-5.40); White Blood Cell (WBC) Count 11.4 thou/uL (4.8-10.8)
[2020-11-27 04:29] LABS: Anion Gap 13 mmol/L (10-20); BUN (Urea Nitrogen) 14 mg/dL (9.8-20.1); Calc. Creatinine Clearance 92 mL/min (70-130); Calcium 8.5 mg/dL (7.8-10.44); Carbon Dioxide 27 mmol/L (23-31); Chloride 102 mmol/L (98-107); Glucose 129 mg/dL (83-110); Potassium 3.8 mmol/L (3.5-5.1); Sodium 138 mmol/L (136-145)
[2020-11-27] MEDS: Mometasone 200 MCG/Formoterol 5 MCG 120 PUFF INHALER INH SCH ×2 (06:36→18:31)
[2020-11-27] MEDS: D5 NS w/ 40 mEq KCl 1,000 ML IV SCH ×2 (08:50→20:37)
[2020-11-27] MEDS: Digoxin 0.5 MG/2 ML AMP SLOW IVP SCH (08:51)
[2020-11-27] MEDS: Saccharomyces boulardii 250 MG CAP PO SCH (10:25)
[2020-11-27] MEDS: Vancomycin HCl 25 MG/ML Oral PO SCH ×4 (10:26→20:35)
[2020-11-27] MEDS ORDERED: Ketorolac Tromethamine 30 MG/ML VIAL IVP SCH (14:00)
[2020-11-27] MEDS: Enoxaparin Sodium 40 MG/0.4 ML SYRINGE SC SCH (14:51)
[2020-11-27] MEDS ORDERED: Fleet Enema 133 ML BOT PR PRN (17:25)
[2020-11-27] MEDS: Atorvastatin Calcium 20 MG TAB PO SCH (20:35)
[2020-11-27] MEDS: Ketorolac Tromethamine 30 MG/ML VIAL IVP PRN (20:37)
[2020-11-28 05:35] LABS: ALT (SGPT) 21 U/L (8-55); AST (SGOT) 18 U/L (5-34); Albumin 3.4 g/dL (3.4-4.8); Alkaline Phosphatase 85 U/L (40-110); Anion Gap 15 mmol/L (10-20); BUN (Urea Nitrogen) 7 mg/dL (9.8-20.1); Bilirubin, Total 0.7 mg/dL (0.2-1.2); Calc. Creatinine Clearance 99 mL/min (70-130); Calcium 8.8 mg/dL (7.8-10.44); Carbon Dioxide 23 mmol/L (23-31); Chloride 106 mmol/L (98-107); Globulin 2.5 g/dL (2.4-3.5); Glucose 122 mg/dL (83-110); Magnesium 1.9 mg/dL (1.6-2.6); Phosphorus 2.3 mg/dL (2.3-4.7); Potassium 4.2 mmol/L (3.5-5.1); Protein, Total 5.9 g/dL (5.8-8.1); Sodium 140 mmol/L (136-145)
[2020-11-28] MEDS: Ketorolac Tromethamine 30 MG/ML VIAL IVP PRN (06:26)
[2020-11-28 06:34] LABS: #Eosinphils 0.3 thou/uL (0.0-0.7); #Lymphocytes 1.7 thou/uL (1.20-3.40); #Monocytes 0.7 thou/uL (0.11-0.59); #Neutrophils 9.4 thou/uL (1.40-6.50); %Basophils 0.4 % (0.0-1.0); %Eosinophils 2.2 % (0.0-10.0); %Lymphocytes 13.9 % (21.0-51.0); %Monocytes 5.9 % (0.0-10.0); %Neutrophils 77.6 % (42.0-75.0); Hemoglobin 13.2 g/dL (12.0-16.0); Mean Corpuscular HGB CONC 32.8 g/dL (32.0-36.0); Mean Corpuscular Hemoglobin 30.8 pg (27.0-31.0); Mean Corpuscular Volume 93.8 fL (78.0-98.0); Mean Platelet Volume 7.3 fL (7.4-10.4); Platelet Count 247 thou/uL (130-400); RBC Distribution Width 12.5 % (11.5-14.5); Red Blood Cell (RBC) Count 4.29 mill/uL (4.20-5.40); White Blood Cell (WBC) Count 12.1 thou/uL (4.8-10.8)
[2020-11-28 06:41] LABS: PTT 25.7 sec (22.9-36.1); Prothrombin Time 13.3 sec (12.0-14.7)
[2020-11-28] MEDS: Mometasone 200 MCG/Formoterol 5 MCG 120 PUFF INHALER INH SCH ×2 (06:56→18:57)
[2020-11-28] MEDS: Enoxaparin Sodium 40 MG/0.4 ML SYRINGE SC SCH (08:10)
[2020-11-28] MEDS: Saccharomyces boulardii 250 MG CAP PO SCH (08:11)
[2020-11-28] MEDS: Vancomycin HCl 25 MG/ML Oral PO SCH ×4 (08:11→21:31)
[2020-11-28] MEDS: Digoxin 0.5 MG/2 ML AMP SLOW IVP SCH (08:11)
[2020-11-28] MEDS ORDERED: Iopamidol-370 76% 500 ML 1 ML ONE (11:05)
[2020-11-28] MEDS ORDERED: Iopamidol 370 76% 50 ML VIAL FS ONE (11:05)
[2020-11-28] MEDS: Bisacodyl 10 MG SUPP PR SCH (14:16)
[2020-11-28] MEDS: D5 NS w/ 40 mEq KCl 1,000 ML IV SCH ×2 (14:19→19:30)
[2020-11-28] MEDS: Docusate 100 MG CAP PO SCH (21:22)
[2020-11-28] MEDS: Atorvastatin Calcium 20 MG TAB PO SCH (21:22)
[2020-11-29] MEDS: D5 NS w/ 40 mEq KCl 1,000 ML IV SCH ×2 (00:25→14:36)
[2020-11-29] MEDS ORDERED: Acetaminophen 325 MG TAB PO PRN (04:00)
[2020-11-29] MEDS: ALPRAZolam 0.25 MG TAB PO PRN ×2 (04:44→09:41)
[2020-11-29] MEDS: Mometasone 200 MCG/Formoterol 5 MCG 120 PUFF INHALER INH SCH ×2 (06:43→19:03)
[2020-11-29] MEDS: Digoxin 0.5 MG/2 ML AMP SLOW IVP SCH (09:41)
[2020-11-29] MEDS: Vancomycin HCl 25 MG/ML Oral PO SCH ×4 (09:41→21:11)
[2020-11-29] MEDS: Saccharomyces boulardii 250 MG CAP PO SCH (09:41)
[2020-11-29] MEDS: Enoxaparin Sodium 40 MG/0.4 ML SYRINGE SC SCH (09:42)
[2020-11-29] MEDS: Docusate 100 MG CAP PO SCH ×2 (09:42→21:12)
[2020-11-29] MEDS: Bisacodyl 10 MG SUPP PR SCH (14:35)
[2020-11-29] MEDS: Atorvastatin Calcium 20 MG TAB PO SCH (21:13)
[2020-11-29] MEDS: Ketorolac Tromethamine 30 MG/ML VIAL IVP PRN (21:47)
[2020-11-30] MEDS: D5 NS w/ 40 mEq KCl 1,000 ML IV SCH (03:24)
[2020-11-30 04:22] LABS: #Basophils 0.1 thou/uL (0.0-0.2); #Eosinphils 0.2 thou/uL (0.0-0.7); #Monocytes 0.8 thou/uL (0.11-0.59); #Neutrophils 7.2 thou/uL (1.40-6.50); %Eosinophils 2.4 % (0.0-10.0); %Lymphocytes 19.6 % (21.0-51.0); %Monocytes 7.3 % (0.0-10.0); %Neutrophils 69.7 % (42.0-75.0); Hemoglobin 12.8 g/dL (12.0-16.0); Mean Corpuscular HGB CONC 33.3 g/dL (32.0-36.0); Mean Corpuscular Hemoglobin 30.6 pg (27.0-31.0); Mean Corpuscular Volume 91.9 fL (78.0-98.0); Mean Platelet Volume 7.5 fL (7.4-10.4); Platelet Count 227 thou/uL (130-400); RBC Distribution Width 12.3 % (11.5-14.5); Red Blood Cell (RBC) Count 4.18 mill/uL (4.20-5.40); White Blood Cell (WBC) Count 10.3 thou/uL (4.8-10.8)
[2020-11-30 04:35] LABS: Anion Gap 13 mmol/L (10-20); BUN (Urea Nitrogen) 4 mg/dL (9.8-20.1); Calc. Creatinine Clearance 111 mL/min (70-130); Calcium 8.2 mg/dL (7.8-10.44); Carbon Dioxide 17 mmol/L (23-31); Chloride 102 mmol/L (98-107); Glucose 105 mg/dL (83-110); Potassium 4.1 mmol/L (3.5-5.1); Sodium 128 mmol/L (136-145)
[2020-11-30] MEDS: Saccharomyces boulardii 250 MG CAP PO SCH (08:14)
[2020-11-30] MEDS: Docusate 100 MG CAP PO SCH ×2 (08:14→21:10)
[2020-11-30] MEDS: Enoxaparin Sodium 40 MG/0.4 ML SYRINGE SC SCH (08:14)
[2020-11-30] MEDS: Digoxin 0.5 MG/2 ML AMP SLOW IVP SCH (08:14)
[2020-11-30] MEDS: Lactated Ringer's 1,000 ML IV SCH ×2 (08:43→22:45)
[2020-11-30] MEDS: Mometasone 200 MCG/Formoterol 5 MCG 120 PUFF INHALER INH SCH ×2 (10:26→18:55)
[2020-11-30] MEDS: Vancomycin HCl 25 MG/ML Oral PO SCH ×3 (11:17→21:10)
[2020-11-30] MEDS: Bisacodyl 10 MG SUPP PR SCH (12:39)
[2020-11-30] MEDS: Atorvastatin Calcium 20 MG TAB PO SCH (21:10)
[2020-12-01] MEDS: Vancomycin HCl 25 MG/ML Oral PO SCH ×4 (03:30→22:19)
[2020-12-01] MEDS: Mometasone 200 MCG/Formoterol 5 MCG 120 PUFF INHALER INH SCH ×2 (07:07→18:35)
[2020-12-01] MEDS: Docusate 100 MG CAP PO SCH ×2 (08:56→21:29)
[2020-12-01] MEDS: Lactated Ringer's 1,000 ML IV SCH (08:56)
[2020-12-01] MEDS: Enoxaparin Sodium 40 MG/0.4 ML SYRINGE SC SCH (08:57)
[2020-12-01] MEDS: Saccharomyces boulardii 250 MG CAP PO SCH (08:57)
[2020-12-01] MEDS: Digoxin 0.5 MG/2 ML AMP SLOW IVP SCH (08:57)
[2020-12-01] MEDS: Bisacodyl 10 MG SUPP PR SCH (12:33)
[2020-12-01] MEDS: Ondansetron PF 4 MG/2 ML Vial IVP PRN (21:27)
[2020-12-01] MEDS: Atorvastatin Calcium 20 MG TAB PO SCH (21:29)
[2020-12-01] MEDS: Ketorolac Tromethamine 30 MG/ML VIAL IVP PRN (23:08)
[2020-12-02 04:45] LABS: #Basophils 0.1 thou/uL (0.0-0.2); #Eosinphils 0.2 thou/uL (0.0-0.7); #Lymphocytes 1.9 thou/uL (1.20-3.40); #Monocytes 0.8 thou/uL (0.11-0.59); #Neutrophils 8.5 thou/uL (1.40-6.50); %Basophils 0.5 % (0.0-1.0); %Eosinophils 1.4 % (0.0-10.0); %Lymphocytes 16.9 % (21.0-51.0); %Monocytes 7.3 % (0.0-10.0); Hemoglobin 13.2 g/dL (12.0-16.0); Mean Corpuscular HGB CONC 34.6 g/dL (32.0-36.0); Mean Corpuscular Hemoglobin 31.6 pg (27.0-31.0); Mean Corpuscular Volume 91.2 fL (78.0-98.0); Mean Platelet Volume 7.7 fL (7.4-10.4); Platelet Count 251 thou/uL (130-400); RBC Distribution Width 12.5 % (11.5-14.5); Red Blood Cell (RBC) Count 4.17 mill/uL (4.20-5.40); White Blood Cell (WBC) Count 11.5 thou/uL (4.8-10.8)
[2020-12-02 05:01] LABS: Anion Gap 10 mmol/L (10-20); BUN (Urea Nitrogen) 7 mg/dL (9.8-20.1); Calc. Creatinine Clearance 88 mL/min (70-130); Calcium 8.8 mg/dL (7.8-10.44); Carbon Dioxide 30 mmol/L (23-31); Chloride 97 mmol/L (98-107); Glucose 107 mg/dL (83-110); Potassium 3.5 mmol/L (3.5-5.1); Sodium 133 mmol/L (136-145)
[2020-12-02] MEDS: Mometasone 200 MCG/Formoterol 5 MCG 120 PUFF INHALER INH SCH ×2 (07:34→19:36)
[2020-12-02] MEDS: Docusate 100 MG CAP PO SCH (10:06)
[2020-12-02] MEDS: Saccharomyces boulardii 250 MG CAP PO SCH (10:06)
[2020-12-02] MEDS: Vancomycin HCl 25 MG/ML Oral PO SCH ×3 (10:06→21:25)
[2020-12-02] MEDS: Bisacodyl 10 MG SUPP PR SCH (11:38)
[2020-12-02] MEDS ORDERED: MD-Gastroview 120 ML BOT ONE (11:52)
[2020-12-02] MEDS: Enoxaparin Sodium 40 MG/0.4 ML SYRINGE SC SCH (12:02)
[2020-12-02] MEDS: Ondansetron PF 4 MG/2 ML Vial IVP PRN ×2 (14:58→22:32)
[2020-12-02] MEDS ORDERED: Sodium Chloride 0.9% 1,000 ML IV SCH (15:45)
[2020-12-02] MEDS ORDERED: Dextrose 50% Abboject 50 ML SYRINGE SLOW IVP PRN (19:21)
[2020-12-02] MEDS ORDERED: Dextrose 5% in Water 1,000 ML IV PRN (19:21)
[2020-12-02] MEDS ORDERED: Sodium Chloride 0.9% 500 ML IV SCH (19:30)
[2020-12-02] MEDS: Sodium Chloride 0.9% 1,000 ML IV SCH (21:25)
[2020-12-02] MEDS ORDERED: Electrolyte Replacement Protocol FS PRN (22:15)
[2020-12-03] MEDS: Sodium Chloride 0.9% 1,000 ML IV SCH ×3 (03:41→16:26)
[2020-12-03] MEDS: Vancomycin HCl 25 MG/ML Oral PO SCH ×4 (03:41→20:18)
[2020-12-03 05:00] LABS: #Eosinphils 0.1 thou/uL (0.0-0.7); #Lymphocytes 1.7 thou/uL (1.20-3.40); #Neutrophils 7.4 thou/uL (1.40-6.50); %Basophils 0.4 % (0.0-1.0); %Eosinophils 0.6 % (0.0-10.0); %Monocytes 9.7 % (0.0-10.0); %Neutrophils 72.4 % (42.0-75.0); Hemoglobin 13.5 g/dL (12.0-16.0); Mean Corpuscular HGB CONC 33.1 g/dL (32.0-36.0); Mean Corpuscular Hemoglobin 30.5 pg (27.0-31.0); Mean Corpuscular Volume 92.1 fL (78.0-98.0); Platelet Count 295 thou/uL (130-400); RBC Distribution Width 12.7 % (11.5-14.5); Red Blood Cell (RBC) Count 4.42 mill/uL (4.20-5.40); White Blood Cell (WBC) Count 10.2 thou/uL (4.8-10.8)
[2020-12-03 05:20] LABS: Phosphorus 4.6 mg/dL (2.3-4.7)
[2020-12-03 05:34] LABS: INR-International Normal Ratio 1.2; Prothrombin Time 15.7 sec (12.0-14.7)
[2020-12-03 05:53] LABS: Anion Gap 19 mmol/L (10-20); BUN (Urea Nitrogen) 19 mg/dL (9.8-20.1); Calc. Creatinine Clearance 43 mL/min (70-130); Calcium 8.5 mg/dL (7.8-10.44); Carbon Dioxide 30 mmol/L (23-31); Chloride 97 mmol/L (98-107); Glucose 111 mg/dL (83-110); Magnesium 1.7 mg/dL (1.6-2.6); Potassium 3.5 mmol/L (3.5-5.1); Sodium 142 mmol/L (136-145)
[2020-12-03] MEDS ORDERED: Magnesium 2 GM/50 ML 2 GM in Premix Bag 1 BAG IVPB SCH (06:15)
[2020-12-03] MEDS ORDERED: Potassium Chloride 20 MEQ TAB PO SCH (06:30)
[2020-12-03] MEDS: Potassium Chloride 20 MEQ in Premix Bag 1 BAG IVPB SCH ×2 (06:36→09:01)
[2020-12-03] MEDS: Mometasone 200 MCG/Formoterol 5 MCG 120 PUFF INHALER INH SCH ×2 (07:03→19:32)
[2020-12-03] MEDS: Digoxin 0.5 MG/2 ML AMP SLOW IVP SCH (08:55)
[2020-12-03] MEDS: Enoxaparin Sodium 40 MG/0.4 ML SYRINGE SC SCH (08:56)
[2020-12-03] MEDS: Saccharomyces boulardii 250 MG CAP PO SCH (08:58)
[2020-12-03] MEDS: Multivitamins, Adult 10 ML, Multitrace-4 NEONATAL 10 ML in D15W-AA 5% with Lytes 2,000 ML IV SCH (13:59)
[2020-12-03] MEDS: Fat Emulsion 250 ML IVPB SCH (14:00)
[2020-12-03] MEDS ORDERED: Pharmacy to MANAGE TPN ELECTROLYTES IVPB PRN (16:43)
[2020-12-04] MEDS: Sodium Chloride 0.9% 1,000 ML IV SCH ×3 (02:37→16:57)
[2020-12-04] MEDS: Vancomycin HCl 25 MG/ML Oral PO SCH ×4 (03:42→20:52)
[2020-12-04 05:40] LABS: Anion Gap 9 mmol/L (10-20); BUN (Urea Nitrogen) 19 mg/dL (9.8-20.1); Calc. Creatinine Clearance 76 mL/min (70-130); Calcium 8.6 mg/dL (7.8-10.44); Carbon Dioxide 35 mmol/L (23-31); Chloride 100 mmol/L (98-107); Glucose 188 mg/dL (83-110); Potassium 3.4 mmol/L (3.5-5.1); Sodium 141 mmol/L (136-145)
[2020-12-04] MEDS: HumaLOG 300 UNITS/3 ML VIAL SC PRN (05:59)
[2020-12-04] MEDS: Potassium Chloride 20 MEQ in Premix Bag 1 BAG IVPB SCH ×2 (06:26→08:21)
[2020-12-04] MEDS: Mometasone 200 MCG/Formoterol 5 MCG 120 PUFF INHALER INH SCH ×2 (07:20→18:55)
[2020-12-04] MEDS: Saccharomyces boulardii 250 MG CAP PO SCH (08:20)
[2020-12-04] MEDS: Digoxin 0.5 MG/2 ML AMP SLOW IVP SCH (08:20)
[2020-12-04] MEDS: Enoxaparin Sodium 40 MG/0.4 ML SYRINGE SC SCH (08:20)
[2020-12-04] MEDS: Lorazepam 2 MG/ML VIAL SLOW IVP PRN ×2 (10:43→20:55)
[2020-12-04] MEDS: Fat Emulsion 250 ML IVPB SCH (14:37)
[2020-12-04] MEDS: Multivitamins, Adult 10 ML, Multitrace-4 NEONATAL 10 ML in D15W-AA 5% with Lytes 2,000 ML IV SCH (14:38)
[2020-12-05] MEDS: Vancomycin HCl 25 MG/ML Oral PO SCH ×4 (03:45→20:11)
[2020-12-05 04:49] LABS: #Basophils 0.1 thou/uL (0.0-0.2); #Eosinphils 0.2 thou/uL (0.0-0.7); #Monocytes 0.7 thou/uL (0.11-0.59); #Neutrophils 7.4 thou/uL (1.40-6.50); %Basophils 0.7 % (0.0-1.0); %Eosinophils 2.2 % (0.0-10.0); %Lymphocytes 18.8 % (21.0-51.0); %Neutrophils 71.2 % (42.0-75.0); Hemoglobin 12.7 g/dL (12.0-16.0); Mean Corpuscular Volume 94.1 fL (78.0-98.0); Mean Platelet Volume 7.9 fL (7.4-10.4); Platelet Count 253 thou/uL (130-400); RBC Distribution Width 12.5 % (11.5-14.5); Red Blood Cell (RBC) Count 4.09 mill/uL (4.20-5.40); White Blood Cell (WBC) Count 10.4 thou/uL (4.8-10.8)
[2020-12-05 05:14] LABS: Anion Gap 10 mmol/L (10-20); BUN (Urea Nitrogen) 19 mg/dL (9.8-20.1); Calc. Creatinine Clearance 85 mL/min (70-130); Carbon Dioxide 34 mmol/L (23-31); Chloride 102 mmol/L (98-107); Glucose 126 mg/dL (83-110); Potassium 3.3 mmol/L (3.5-5.1); Sodium 143 mmol/L (136-145)
[2020-12-05] MEDS: Mometasone 200 MCG/Formoterol 5 MCG 120 PUFF INHALER INH SCH ×2 (07:19→19:00)
[2020-12-05] MEDS: Potassium Chloride 20 MEQ in Premix Bag 1 BAG IVPB SCH ×2 (07:22→09:41)
[2020-12-05] MEDS: Digoxin 0.5 MG/2 ML AMP SLOW IVP SCH (09:38)
[2020-12-05] MEDS: Enoxaparin Sodium 40 MG/0.4 ML SYRINGE SC SCH (09:41)
[2020-12-05] MEDS: Saccharomyces boulardii 250 MG CAP PO SCH (09:42)
[2020-12-05] MEDS: Fat Emulsion 250 ML IVPB SCH (14:39)
[2020-12-05] MEDS: Multivitamins, Adult 10 ML, Multitrace-4 NEONATAL 10 ML in D15W-AA 5% with Lytes 2,000 ML IV SCH (14:40)
[2020-12-05] MEDS: Lorazepam 2 MG/ML VIAL SLOW IVP PRN (20:44)
[2020-12-06] MEDS: Vancomycin HCl 25 MG/ML Oral PO SCH ×4 (04:13→22:11)
[2020-12-06] MEDS ORDERED: Labetalol HCl 100 MG/20 ML VIAL ONE (05:18)
[2020-12-06] MEDS: Mometasone 200 MCG/Formoterol 5 MCG 120 PUFF INHALER INH SCH ×2 (07:17→18:46)
[2020-12-06] MEDS: Digoxin 0.5 MG/2 ML AMP SLOW IVP SCH (08:27)
[2020-12-06] MEDS: Enoxaparin Sodium 40 MG/0.4 ML SYRINGE SC SCH (08:29)
[2020-12-06] MEDS: Saccharomyces boulardii 250 MG CAP PO SCH (08:30)
[2020-12-06] MEDS: Potassium Chloride 20 MEQ TAB PO SCH ×2 (09:16→09:37)
[2020-12-06] MEDS ORDERED: Potassium Bicarbonate/Cit Ac 20 MEQ TAB PO SCH (09:30)
[2020-12-06] MEDS: Fat Emulsion 250 ML IVPB SCH (14:35)
[2020-12-06] MEDS: Multivitamins, Adult 10 ML, Multitrace-4 NEONATAL 10 ML in D15W-AA 5% with Lytes 2,000 ML IV SCH (14:36)
[2020-12-07] MEDS: Vancomycin HCl 25 MG/ML Oral PO SCH ×4 (03:55→22:09)
[2020-12-07] MEDS: Mometasone 200 MCG/Formoterol 5 MCG 120 PUFF INHALER INH SCH ×2 (06:57→19:50)
[2020-12-07] MEDS ORDERED: Furosemide 20 MG/2 ML VIAL SLOW IVP SCH (10:15)
[2020-12-07] MEDS: Digoxin 0.5 MG/2 ML AMP SLOW IVP SCH (10:19)
[2020-12-07] MEDS: Enoxaparin Sodium 40 MG/0.4 ML SYRINGE SC SCH (10:21)
[2020-12-07] MEDS: Saccharomyces boulardii 250 MG CAP PO SCH (10:21)
[2020-12-07] MEDS: GUAIFENESIN SF SOLN 200 MG/10 ML UDCUP PO PRN (10:22)
[2020-12-07 11:38] LABS: #Basophils 0.1 thou/uL (0.0-0.2); #Eosinphils 0.3 thou/uL (0.0-0.7); #Lymphocytes 1.9 thou/uL (1.20-3.40); #Monocytes 0.5 thou/uL (0.11-0.59); #Neutrophils 7.6 thou/uL (1.40-6.50); %Basophils 0.5 % (0.0-1.0); %Eosinophils 2.5 % (0.0-10.0); %Lymphocytes 18.5 % (21.0-51.0); %Monocytes 5.2 % (0.0-10.0); %Neutrophils 73.3 % (42.0-75.0); Hemoglobin 13.6 g/dL (12.0-16.0); Mean Corpuscular HGB CONC 33.7 g/dL (32.0-36.0); Mean Corpuscular Hemoglobin 31.5 pg (27.0-31.0); Mean Corpuscular Volume 93.2 fL (78.0-98.0); Platelet Count 249 thou/uL (130-400); RBC Distribution Width 12.4 % (11.5-14.5); Red Blood Cell (RBC) Count 4.33 mill/uL (4.20-5.40); White Blood Cell (WBC) Count 10.4 thou/uL (4.8-10.8)
[2020-12-07 11:57] LABS: Anion Gap 13 mmol/L (10-20); BUN (Urea Nitrogen) 18 mg/dL (9.8-20.1); Calc. Creatinine Clearance 84 mL/min (70-130); Calcium 9.1 mg/dL (7.8-10.44); Carbon Dioxide 31 mmol/L (23-31); Chloride 95 mmol/L (98-107); Glucose 115 mg/dL (83-110); Magnesium 1.8 mg/dL (1.6-2.6); Phosphorus 3.3 mg/dL (2.3-4.7); Potassium 3.7 mmol/L (3.5-5.1); Sodium 135 mmol/L (136-145)
[2020-12-07] MEDS ORDERED: Magnesium 2 GM/50 ML 2 GM in Premix Bag 1 BAG IVPB SCH (12:30)
[2020-12-07] MEDS ORDERED: Lorazepam 2 MG/ML VIAL SLOW IVP SCH (12:45)
[2020-12-07] MEDS: Ipratropium Bromide 2.5 ml Neb NEB SCH ×2 (14:52→19:50)
[2020-12-07] MEDS: Fat Emulsion 250 ML IVPB SCH (15:21)
[2020-12-07] MEDS: Multivitamins, Adult 10 ML, Multitrace-4 NEONATAL 10 ML in D15W-AA 5% with Lytes 2,000 ML IV SCH (15:23)
[2020-12-07] MEDS: Melatonin 3 MG TAB PO SCH (22:09)
[2020-12-07] MEDS: Acetaminophen 325 MG TAB PO PRN (22:09)
[2020-12-08] MEDS: Ipratropium Bromide 2.5 ml Neb NEB SCH ×4 (00:04→18:49)
[2020-12-08] MEDS: Vancomycin HCl 25 MG/ML Oral PO SCH ×4 (03:41→21:45)
[2020-12-08] MEDS: Acetaminophen 325 MG TAB PO PRN ×2 (03:59→15:30)
[2020-12-08] MEDS: Mometasone 200 MCG/Formoterol 5 MCG 120 PUFF INHALER INH SCH ×2 (07:15→18:52)
[2020-12-08] MEDS ORDERED: Non-Formulary Item 1 EACH (Tiotropium Bromide [Spiriva] 18 MCG Cap.W.Dev) IH SCH (09:00)
[2020-12-08] MEDS: Saccharomyces boulardii 250 MG CAP PO SCH (09:42)
[2020-12-08] MEDS: Digoxin 0.5 MG/2 ML AMP SLOW IVP SCH (09:43)
[2020-12-08] MEDS: Enoxaparin Sodium 40 MG/0.4 ML SYRINGE SC SCH (09:43)
[2020-12-08] MEDS: Scopolamine 1.5 mg/72 hour Patch TD SCH (12:25)
[2020-12-08] MEDS: Multivitamins, Adult 10 ML, Multitrace-4 NEONATAL 10 ML in D15W-AA 5% with Lytes 2,000 ML IV SCH (15:09)
[2020-12-08] MEDS: Fat Emulsion 250 ML IVPB SCH (15:09)
[2020-12-08] MEDS: Melatonin 3 MG TAB PO SCH (21:45)
[2020-12-09] MEDS: Ipratropium Bromide 2.5 ml Neb NEB SCH ×4 (00:35→19:53)
[2020-12-09] MEDS: Lorazepam 2 MG/ML VIAL SLOW IVP PRN ×2 (01:43→16:06)
[2020-12-09] MEDS: Vancomycin HCl 25 MG/ML Oral PO SCH ×4 (03:11→20:14)
[2020-12-09] MEDS: Mometasone 200 MCG/Formoterol 5 MCG 120 PUFF INHALER INH SCH ×2 (06:39→19:50)
[2020-12-09] MEDS: Enoxaparin Sodium 40 MG/0.4 ML SYRINGE SC SCH (09:23)
[2020-12-09] MEDS: Digoxin 0.5 MG/2 ML AMP SLOW IVP SCH (09:23)
[2020-12-09] MEDS: GUAIFENESIN SF SOLN 200 MG/10 ML UDCUP PO PRN (09:24)
[2020-12-09] MEDS: Saccharomyces boulardii 250 MG CAP PO SCH (09:24)
[2020-12-09] MEDS: Acetaminophen 325 MG TAB PO PRN (10:09)
[2020-12-09 14:07] LABS: #Basophils 0.1 thou/uL (0.0-0.2); #Eosinphils 0.2 thou/uL (0.0-0.7); #Lymphocytes 1.8 thou/uL (1.20-3.40); #Monocytes 0.7 thou/uL (0.11-0.59); #Neutrophils 6.3 thou/uL (1.40-6.50); %Basophils 0.6 % (0.0-1.0); %Eosinophils 2.7 % (0.0-10.0); %Lymphocytes 19.9 % (21.0-51.0); %Monocytes 7.3 % (0.0-10.0); %Neutrophils 69.5 % (42.0-75.0); Hemoglobin 12.3 g/dL (12.0-16.0); Mean Corpuscular HGB CONC 32.6 g/dL (32.0-36.0); Mean Corpuscular Hemoglobin 30.1 pg (27.0-31.0); Mean Corpuscular Volume 92.4 fL (78.0-98.0); Mean Platelet Volume 7.8 fL (7.4-10.4); Platelet Count 230 thou/uL (130-400); RBC Distribution Width 12.2 % (11.5-14.5); Red Blood Cell (RBC) Count 4.07 mill/uL (4.20-5.40); White Blood Cell (WBC) Count 9.1 thou/uL (4.8-10.8)
[2020-12-09 14:28] LABS: Anion Gap 9 mmol/L (10-20); BUN (Urea Nitrogen) 22 mg/dL (9.8-20.1); Calc. Creatinine Clearance 87 mL/min (70-130); Calcium 8.8 mg/dL (7.8-10.44); Carbon Dioxide 35 mmol/L (23-31); Chloride 94 mmol/L (98-107); Glucose 139 mg/dL (83-110); Potassium 3.4 mmol/L (3.5-5.1); Sodium 135 mmol/L (136-145)
[2020-12-09] MEDS: Fat Emulsion 250 ML IVPB SCH (16:04)
[2020-12-09] MEDS: Multivitamins, Adult 10 ML, Multitrace-4 NEONATAL 10 ML in D15W-AA 5% with Lytes 2,000 ML IV SCH (16:05)
[2020-12-09] MEDS: Melatonin 3 MG TAB PO SCH (20:11)
[2020-12-10] MEDS: Ipratropium Bromide 2.5 ml Neb NEB SCH ×4 (00:53→20:01)
[2020-12-10] MEDS: Vancomycin HCl 25 MG/ML Oral PO SCH ×3 (04:18→14:09)
[2020-12-10 05:27] LABS: #Basophils 0.1 thou/uL (0.0-0.2); #Eosinphils 0.3 thou/uL (0.0-0.7); #Lymphocytes 2.1 thou/uL (1.20-3.40); #Monocytes 0.6 thou/uL (0.11-0.59); #Neutrophils 4.9 thou/uL (1.40-6.50); %Eosinophils 3.4 % (0.0-10.0); %Lymphocytes 26.1 % (21.0-51.0); %Neutrophils 61.6 % (42.0-75.0); Hemoglobin 12.1 g/dL (12.0-16.0); Mean Corpuscular HGB CONC 34.2 g/dL (32.0-36.0); Mean Corpuscular Hemoglobin 31.3 pg (27.0-31.0); Mean Corpuscular Volume 91.6 fL (78.0-98.0); Mean Platelet Volume 8.3 fL (7.4-10.4); Platelet Count 231 thou/uL (130-400); RBC Distribution Width 12.1 % (11.5-14.5); Red Blood Cell (RBC) Count 3.87 mill/uL (4.20-5.40); White Blood Cell (WBC) Count 7.9 thou/uL (4.8-10.8)
[2020-12-10 05:45] LABS: Anion Gap 11 mmol/L (10-20); BUN (Urea Nitrogen) 19 mg/dL (9.8-20.1); Calc. Creatinine Clearance 90 mL/min (70-130); Calcium 8.6 mg/dL (7.8-10.44); Carbon Dioxide 32 mmol/L (23-31); Chloride 94 mmol/L (98-107); Glucose 122 mg/dL (83-110); Potassium 3.5 mmol/L (3.5-5.1); Sodium 133 mmol/L (136-145)
[2020-12-10] MEDS ORDERED: Potassium Chloride 20 MEQ TAB PO SCH (06:30)
[2020-12-10] MEDS: Mometasone 200 MCG/Formoterol 5 MCG 120 PUFF INHALER INH SCH ×2 (06:56→20:05)
[2020-12-10] MEDS: Enoxaparin Sodium 40 MG/0.4 ML SYRINGE SC SCH (08:25)
[2020-12-10] MEDS: Saccharomyces boulardii 250 MG CAP PO SCH (08:26)
[2020-12-10] MEDS: Digoxin 0.5 MG/2 ML AMP SLOW IVP SCH (08:26)
[2020-12-10] MEDS: Acetaminophen 325 MG TAB PO PRN (14:09)
[2020-12-10] MEDS: Multivitamins, Adult 10 ML, Multitrace-4 NEONATAL 10 ML in D15W-AA 5% with Lytes 2,000 ML IV SCH (14:09)
[2020-12-10] MEDS: Fat Emulsion 250 ML IVPB SCH (14:09)
[2020-12-10] MEDS ORDERED: Furosemide 20 MG/2 ML VIAL SLOW IVP SCH (15:15)
[2020-12-10] MEDS ORDERED: MEROPENEM 1 GM/50 ML 1 GM in Premix Bag 1 BAG IVPB SCH (16:00)
[2020-12-10] MEDS: Lorazepam 2 MG/ML VIAL SLOW IVP PRN (16:34)
[2020-12-10] MEDS: metroNIDAZOLE 500 MG in Premix Bag 1 BAG IVPB SCH (18:12)
[2020-12-10] MEDS ORDERED: Adenosine 6 MG/2 ML VIAL ONE (19:03)
[2020-12-10] MEDS: Melatonin 3 MG TAB PO SCH (20:37)
[2020-12-11] MEDS: metroNIDAZOLE 500 MG in Premix Bag 1 BAG IVPB SCH ×3 (02:03→16:54)
[2020-12-11] MEDS: Ipratropium Bromide 2.5 ml Neb NEB SCH ×3 (02:40→10:28)
[2020-12-11 04:52] LABS: #Basophils 0.1 thou/uL (0.0-0.2); #Eosinphils 0.3 thou/uL (0.0-0.7); #Lymphocytes 1.9 thou/uL (1.20-3.40); #Monocytes 0.5 thou/uL (0.11-0.59); #Neutrophils 4.3 thou/uL (1.40-6.50); %Basophils 1.1 % (0.0-1.0); %Eosinophils 4.3 % (0.0-10.0); %Lymphocytes 26.6 % (21.0-51.0); %Monocytes 7.3 % (0.0-10.0); %Neutrophils 60.7 % (42.0-75.0); Mean Corpuscular HGB CONC 33.8 g/dL (32.0-36.0); Mean Corpuscular Volume 91.8 fL (78.0-98.0); Mean Platelet Volume 8.2 fL (7.4-10.4); Platelet Count 209 thou/uL (130-400); RBC Distribution Width 12.1 % (11.5-14.5); Red Blood Cell (RBC) Count 3.87 mill/uL (4.20-5.40); White Blood Cell (WBC) Count 7.1 thou/uL (4.8-10.8)
[2020-12-11 05:14] LABS: Anion Gap 11 mmol/L (10-20); BUN (Urea Nitrogen) 19 mg/dL (9.8-20.1); Calc. Creatinine Clearance 87 mL/min (70-130); Calcium 8.5 mg/dL (7.8-10.44); Carbon Dioxide 30 mmol/L (23-31); Chloride 95 mmol/L (98-107); Glucose 138 mg/dL (83-110); Magnesium 1.7 mg/dL (1.6-2.6); Potassium 3.4 mmol/L (3.5-5.1); Sodium 133 mmol/L (136-145)
[2020-12-11 05:16] LABS: Phosphorus 3.4 mg/dL (2.3-4.7)
[2020-12-11] MEDS ORDERED: Magnesium 2 GM/50 ML 2 GM in Premix Bag 1 BAG IVPB SCH (06:30)
[2020-12-11] MEDS ORDERED: Potassium Chloride 20 MEQ TAB PO SCH (06:30)
[2020-12-11] MEDS: Mometasone 200 MCG/Formoterol 5 MCG 120 PUFF INHALER INH SCH ×2 (07:35→19:10)
[2020-12-11] MEDS ORDERED: Promethazine HCl 25 MG/ML VIAL SLOW IVP PRN (07:55)
[2020-12-11] MEDS ORDERED: Ondansetron HCl/PF 4 MG/2 ML Vial IVP PRN (07:55)
[2020-12-11] MEDS ORDERED: Promethazine HCl 25 MG/ML VIAL IM PRN (07:55)
[2020-12-11] MEDS ORDERED: Lidocaine 1% w/Epinephrine 1:100K 20 ML VIAL ONE (08:15)
[2020-12-11] MEDS ORDERED: Bupivacaine PF 0.5% 30 ML VIAL ONE (08:15)
[2020-12-11] MEDS ORDERED: Fentanyl 250 MCG/5 ML VIAL ONE (08:32)
[2020-12-11] MEDS ORDERED: SUGAMMADEX SODIUM 200 MG/2 ML VIAL ONE (08:32)
[2020-12-11] MEDS ORDERED: Lidocaine 1% PF 5 ML VIAL ONE (08:47)
[2020-12-11] MEDS ORDERED: PHENYLEPHRINE-NS 100 MCG/ML 10 ML SYRINGE ONE (08:47)
[2020-12-11] MEDS ORDERED: Vecuronium 10 MG VIAL ONE (08:47)
[2020-12-11] MEDS ORDERED: PROPOFOL 200 MG/20 ML VIAL ONE (08:47)
[2020-12-11] MEDS ORDERED: Dexamethasone 20 MG/5 ML VIAL ONE (08:47)
[2020-12-11] MEDS ORDERED: Succinylcholine 200 MG/10 ml SYRINGE FS ONE (08:47)
[2020-12-11] MEDS ORDERED: ePHEDrine 50 MG/ML VIAL ONE (08:47)
[2020-12-11] MEDS ORDERED: Rocuronium Bromide 10 MG/ML (10ML VIAL) ONE (08:47)
[2020-12-11] MEDS ORDERED: Morphine 2 MG/ML VIAL SLOW IVP PRN (10:15)
[2020-12-11] MEDS ORDERED: Propofol 1,000 MG/100 ML VIAL IV PRN ×2 (10:15→10:45)
[2020-12-11] MEDS ORDERED: Lorazepam 2 MG/ML VIAL SLOW IVP PRN (10:15)
[2020-12-11] MEDS ORDERED: Propofol BOLUS 1,000 MG/100 ML VIAL IV PRN ×2 (10:15→10:45)
[2020-12-11] MEDS ORDERED: Fentanyl CADD 100 ML IV SCH ×2 (10:15→10:45)
[2020-12-11] MEDS ORDERED: DISCONTINUE PREVIOUS NARCOTIC PAIN MEDICATIONS AND BENZODIAZEPINES FS SCH (10:15)
[2020-12-11] MEDS ORDERED: Ventilator Sedation Protocol 1 EACH FS SCH (10:15)
[2020-12-11] MEDS ORDERED: Fentanyl BOLUS 250 ML IVPB PRN ×2 (10:15→10:45)
[2020-12-11] MEDS ORDERED: Ventilator Sedation Protocol 1 EACH FS ONE (10:31)
[2020-12-11 11:00] LABS: Actual Bicarbonate (HCO3a) 25.9 mEq/L (22-28); Base Excess (BEa) 2.6 mEq/L (-2.0 to +3.0); CO2 Tension 35.6 mmHg (35.0-45.0); Calcium, Ionized (arterial) 1.14 mmol/L (1.12-1.30); Carboxyhemoglobin (COHb) 0.1 gm% (0.0-3.0); Hemoglobin (Hb) 13.3 g/dL (12.0-16.0); O2 Tension (PaO2), arterial 135.7 mmHg (> 60.0); Potassium - ABG Lab 3.42 mmol/L (3.70-5.30); pH, Arterial 7.48 (7.35-7.45)
[2020-12-11 11:03] LABS: Puncture Site RRA
[2020-12-11] MEDS ORDERED: Fentanyl CADD 0 ML ONE ×3 (13:32→13:42)
[2020-12-11] MEDS: Multivitamins, Adult 10 ML, Multitrace-4 NEONATAL 10 ML in D15W-AA 5% with Lytes 2,000 ML IV SCH (14:01)
[2020-12-11] MEDS: Fat Emulsion 250 ML IVPB SCH (14:02)
[2020-12-11] MEDS: Saccharomyces boulardii 250 MG CAP PO SCH (14:06)
[2020-12-11] MEDS: Enoxaparin Sodium 40 MG/0.4 ML SYRINGE SC SCH (14:06)
[2020-12-11] MEDS: Digoxin 0.5 MG/2 ML AMP SLOW IVP SCH (14:06)
[2020-12-11] MEDS: NS 0.9% w/ 40 MEQ KCL 1,000 ML IV SCH ×2 (14:07→15:38)
[2020-12-11] MEDS: Scopolamine 1.5 mg/72 hour Patch TD SCH (14:07)
[2020-12-11] MEDS: Lorazepam 2 MG/ML VIAL SLOW IVP PRN ×3 (15:09→21:50)
[2020-12-11] MEDS: HumaLOG 300 UNITS/3 ML VIAL SC PRN ×2 (18:16→21:59)
[2020-12-11] MEDS: Melatonin 3 MG TAB PO SCH (21:54)
[2020-12-11] MEDS ORDERED: Lactated Ringer's 1,000 ML IV SCH (22:15)
[2020-12-11] MEDS ORDERED: Albumin 25% 25 GM/100 ML BOT IVPB SCH (22:15)
[2020-12-12] MEDS: Lorazepam 2 MG/ML VIAL SLOW IVP PRN (02:48)
[2020-12-12] MEDS: metroNIDAZOLE 500 MG in Premix Bag 1 BAG IVPB SCH ×3 (02:52→17:02)
[2020-12-12 05:04] LABS: #Lymphocytes 0.8 thou/uL (1.20-3.40); #Monocytes 0.7 thou/uL (0.11-0.59); #Neutrophils 9.1 thou/uL (1.40-6.50); %Basophils 0.2 % (0.0-1.0); %Eosinophils 0.2 % (0.0-10.0); %Lymphocytes 7.8 % (21.0-51.0); %Monocytes 6.8 % (0.0-10.0); %Neutrophils 84.9 % (42.0-75.0); Mean Corpuscular HGB CONC 32.9 g/dL (32.0-36.0); Mean Corpuscular Hemoglobin 30.5 pg (27.0-31.0); Mean Corpuscular Volume 92.8 fL (78.0-98.0); Mean Platelet Volume 8.3 fL (7.4-10.4); Platelet Count 185 thou/uL (130-400); RBC Distribution Width 12.2 % (11.5-14.5); Red Blood Cell (RBC) Count 3.29 mill/uL (4.20-5.40); White Blood Cell (WBC) Count 10.8 thou/uL (4.8-10.8)
[2020-12-12 05:30] LABS: Anion Gap 11 mmol/L (10-20); BUN (Urea Nitrogen) 18 mg/dL (9.8-20.1); Calc. Creatinine Clearance 87 mL/min (70-130); Calcium 7.9 mg/dL (7.8-10.44); Carbon Dioxide 25 mmol/L (23-31); Chloride 101 mmol/L (98-107); Glucose 173 mg/dL (83-110); Magnesium 1.8 mg/dL (1.6-2.6); Potassium 4.1 mmol/L (3.5-5.1); Sodium 133 mmol/L (136-145)
[2020-12-12] MEDS ORDERED: Magnesium 2 GM/50 ML 2 GM in Premix Bag 1 BAG IVPB SCH (06:30)
[2020-12-12] MEDS: HumaLOG 300 UNITS/3 ML VIAL SC PRN (06:38)
[2020-12-12] MEDS ORDERED: Fentanyl CADD 100 ML ONE (06:48)
[2020-12-12 07:20] LABS: Base Excess (BEa) 1.7 mEq/L (-2.0 to +3.0); CO2 Tension 39.4 mmHg (35.0-45.0); Calcium, Ionized (arterial) 1.21 mmol/L (1.12-1.30); Carboxyhemoglobin (COHb) 0.3 gm% (0.0-3.0); Hemoglobin (Hb) 11.1 g/dL (12.0-16.0); O2 Tension (PaO2), arterial 112.7 mmHg (> 60.0); Potassium - ABG Lab 4.34 mmol/L (3.70-5.30); pH, Arterial 7.44 (7.35-7.45)
[2020-12-12] MEDS: Mometasone 200 MCG/Formoterol 5 MCG 120 PUFF INHALER INH SCH ×2 (07:23→18:44)
[2020-12-12 07:24] LABS: Puncture Site RRA
[2020-12-12] MEDS ORDERED: DC Sedation Protocol FS ONE (08:27)
[2020-12-12] MEDS: Enoxaparin Sodium 40 MG/0.4 ML SYRINGE SC SCH (09:52)
[2020-12-12] MEDS: Saccharomyces boulardii 250 MG CAP PO SCH ×2 (09:52→16:59)
[2020-12-12] MEDS: Digoxin 0.5 MG/2 ML AMP SLOW IVP SCH (09:54)
[2020-12-12] MEDS: NS 0.9% w/ 40 MEQ KCL 1,000 ML IV SCH (10:54)
[2020-12-12] MEDS: Multivitamins, Adult 10 ML, Multitrace-4 NEONATAL 10 ML in D15W-AA 5% with Lytes 2,000 ML IV SCH (15:03)
[2020-12-12] MEDS: Fat Emulsion 250 ML IVPB SCH (15:03)
[2020-12-12] MEDS ORDERED: Morphine 2 MG/ML VIAL SLOW IVP PRN (16:34)
[2020-12-12] MEDS ORDERED: Morphine 4 MG/ML VIAL SLOW IVP PRN ×2 (16:48)
[2020-12-12] MEDS: Morphine 2 MG/ML VIAL SLOW IVP PRN (17:02)
[2020-12-12] MEDS: Melatonin 3 MG TAB PO SCH (21:41)
[2020-12-12] MEDS ORDERED: [UNRECOGNIZED DRUG - REMARK] IV SCH (22:00)
[2020-12-12] MEDS ORDERED: Ketorolac Tromethamine 30 MG/ML VIAL IVP SCH (22:45)
[2020-12-12] MEDS: Ondansetron PF 4 MG/2 ML Vial IVP PRN (23:12)
[2020-12-13] MEDS: metroNIDAZOLE 500 MG in Premix Bag 1 BAG IVPB SCH ×3 (02:24→17:53)
[2020-12-13] MEDS: NS 0.9% w/ 40 MEQ KCL 1,000 ML IV SCH ×2 (02:25→18:41)
[2020-12-13 04:30] LABS: #Eosinphils 0.4 thou/uL (0.0-0.7); #Monocytes 0.6 thou/uL (0.11-0.59); #Neutrophils 7.7 thou/uL (1.40-6.50); %Basophils 0.1 % (0.0-1.0); %Lymphocytes 18.5 % (21.0-51.0); %Monocytes 5.8 % (0.0-10.0); %Neutrophils 71.6 % (42.0-75.0); Hemoglobin 9.4 g/dL (12.0-16.0); Mean Corpuscular HGB CONC 33.3 g/dL (32.0-36.0); Mean Corpuscular Hemoglobin 31.1 pg (27.0-31.0); Mean Corpuscular Volume 93.3 fL (78.0-98.0); Mean Platelet Volume 8.6 fL (7.4-10.4); Platelet Count 197 thou/uL (130-400); RBC Distribution Width 12.6 % (11.5-14.5); Red Blood Cell (RBC) Count 3.03 mill/uL (4.20-5.40); White Blood Cell (WBC) Count 10.7 thou/uL (4.8-10.8)
[2020-12-13 04:46] LABS: Anion Gap 10 mmol/L (10-20); BUN (Urea Nitrogen) 14 mg/dL (9.8-20.1); Calc. Creatinine Clearance 109 mL/min (70-130); Calcium 7.8 mg/dL (7.8-10.44); Carbon Dioxide 27 mmol/L (23-31); Chloride 103 mmol/L (98-107); Glucose 122 mg/dL (83-110); Potassium 4.6 mmol/L (3.5-5.1); Sodium 135 mmol/L (136-145)
[2020-12-13] MEDS: Mometasone 200 MCG/Formoterol 5 MCG 120 PUFF INHALER INH SCH ×2 (07:12→18:33)
[2020-12-13] MEDS: Digoxin 0.5 MG/2 ML AMP SLOW IVP SCH (09:05)
[2020-12-13] MEDS: Enoxaparin Sodium 40 MG/0.4 ML SYRINGE SC SCH (09:05)
[2020-12-13] MEDS: Saccharomyces boulardii 250 MG CAP PO SCH (10:44)
[2020-12-13] MEDS: Ondansetron PF 4 MG/2 ML Vial IVP PRN (13:14)
[2020-12-13] MEDS: Ketorolac Tromethamine 30 MG/ML VIAL IVP PRN (13:55)
[2020-12-13] MEDS: [UNRECOGNIZED DRUG - REMARK] IV SCH (15:09)
[2020-12-13] MEDS: Melatonin 3 MG TAB PO SCH (20:22)
[2020-12-14] MEDS: metroNIDAZOLE 500 MG in Premix Bag 1 BAG IVPB SCH ×3 (02:14→16:06)
[2020-12-14 06:50] LABS: Anion Gap 9 mmol/L (10-20); BUN (Urea Nitrogen) 16 mg/dL (9.8-20.1); Calc. Creatinine Clearance 112 mL/min (70-130); Calcium 7.8 mg/dL (7.8-10.44); Carbon Dioxide 26 mmol/L (23-31); Chloride 103 mmol/L (98-107); Glucose 139 mg/dL (83-110); Potassium 4.3 mmol/L (3.5-5.1); Sodium 134 mmol/L (136-145)
[2020-12-14] MEDS: Mometasone 200 MCG/Formoterol 5 MCG 120 PUFF INHALER INH SCH ×2 (07:50→18:45)
[2020-12-14] MEDS: Saccharomyces boulardii 250 MG CAP PO SCH (09:19)
[2020-12-14] MEDS: NS 0.9% w/ 40 MEQ KCL 1,000 ML IV SCH (09:52)
[2020-12-14] MEDS: Ondansetron PF 4 MG/2 ML Vial IVP PRN (09:54)
[2020-12-14] MEDS: Enoxaparin Sodium 40 MG/0.4 ML SYRINGE SC SCH (10:31)
[2020-12-14] MEDS: Digoxin 0.5 MG/2 ML AMP SLOW IVP SCH (10:47)
[2020-12-14] MEDS: Scopolamine 1.5 mg/72 hour Patch TD SCH (12:44)
[2020-12-14] MEDS: [UNRECOGNIZED DRUG - REMARK] IV SCH (16:05)
[2020-12-14] MEDS: Melatonin 3 MG TAB PO SCH (21:22)
[2020-12-15] MEDS: metroNIDAZOLE 500 MG in Premix Bag 1 BAG IVPB SCH ×3 (01:57→18:26)
[2020-12-15] MEDS: Ondansetron PF 4 MG/2 ML Vial IVP PRN (05:29)
[2020-12-15] MEDS: HumaLOG 300 UNITS/3 ML VIAL SC PRN (05:30)
[2020-12-15] MEDS: Ketorolac Tromethamine 30 MG/ML VIAL IVP PRN (05:46)
[2020-12-15] MEDS: Mometasone 200 MCG/Formoterol 5 MCG 120 PUFF INHALER INH SCH ×2 (06:37→18:49)
[2020-12-15] MEDS: Saccharomyces boulardii 250 MG CAP PO SCH (08:28)
[2020-12-15] MEDS: Enoxaparin Sodium 40 MG/0.4 ML SYRINGE SC SCH (08:28)
[2020-12-15] MEDS: Digoxin 0.5 MG/2 ML AMP SLOW IVP SCH (08:29)
[2020-12-15] MEDS: Acetaminophen 500 MG TAB PO PRN ×2 (11:13→18:42)
[2020-12-15 13:42] VITALS: BMI 31.4
[2020-12-15] MEDS ORDERED: [UNRECOGNIZED DRUG - REMARK] IV SCH (14:00)
[2020-12-15] MEDS: traMADol HCl 50 MG TAB PO PRN (18:42)
[2020-12-15] MEDS: Melatonin 3 MG TAB PO SCH (21:22)
[2020-12-16] MEDS: metroNIDAZOLE 500 MG in Premix Bag 1 BAG IVPB SCH ×3 (00:56→18:36)
[2020-12-16] MEDS: Ondansetron PF 4 MG/2 ML Vial IVP PRN ×2 (05:36→21:07)
[2020-12-16 06:01] LABS: #Basophils 0.1 thou/uL (0.0-0.2); #Eosinphils 0.6 thou/uL (0.0-0.7); #Lymphocytes 1.5 thou/uL (1.20-3.40); #Monocytes 0.7 thou/uL (0.11-0.59); #Neutrophils 7.4 thou/uL (1.40-6.50); %Basophils 0.6 % (0.0-1.0); %Eosinophils 6.1 % (0.0-10.0); %Lymphocytes 15.1 % (21.0-51.0); %Monocytes 6.4 % (0.0-10.0); %Neutrophils 71.8 % (42.0-75.0); Hemoglobin 9.3 g/dL (12.0-16.0); Mean Corpuscular HGB CONC 33.9 g/dL (32.0-36.0); Mean Corpuscular Hemoglobin 31.3 pg (27.0-31.0); Mean Corpuscular Volume 92.3 fL (78.0-98.0); Mean Platelet Volume 7.5 fL (7.4-10.4); Platelet Count 255 thou/uL (130-400); RBC Distribution Width 12.5 % (11.5-14.5); Red Blood Cell (RBC) Count 2.99 mill/uL (4.20-5.40); White Blood Cell (WBC) Count 10.2 thou/uL (4.8-10.8)
[2020-12-16 06:27] LABS: Anion Gap 7 mmol/L (10-20); BUN (Urea Nitrogen) 9 mg/dL (9.8-20.1); Calc. Creatinine Clearance 120 mL/min (70-130); Calcium 7.7 mg/dL (7.8-10.44); Carbon Dioxide 26 mmol/L (23-31); Chloride 103 mmol/L (98-107); Glucose 98 mg/dL (83-110); Magnesium 1.1 mg/dL (1.6-2.6); Phosphorus 2.1 mg/dL (2.3-4.7); Potassium 3.3 mmol/L (3.5-5.1); Sodium 133 mmol/L (136-145)
[2020-12-16] MEDS ORDERED: Potassium Phosphate 30 MMOL in Sodium Chloride 0.9% 250 ML 250 ML IVPB SCH (07:15)
[2020-12-16] MEDS ORDERED: Magnesium Sulfate 4 GM in Sodium Chloride 0.9% 250 ML 250 ML IVPB SCH (07:15)
[2020-12-16] MEDS: Mometasone 200 MCG/Formoterol 5 MCG 120 PUFF INHALER INH SCH ×2 (07:25→18:31)
[2020-12-16] MEDS ORDERED: Potassium Chloride 20 MEQ TAB PO SCH (07:30)
[2020-12-16] MEDS: Enoxaparin Sodium 40 MG/0.4 ML SYRINGE SC SCH (08:42)
[2020-12-16] MEDS: Saccharomyces boulardii 250 MG CAP PO SCH (08:42)
[2020-12-16] MEDS: Digoxin 0.5 MG/2 ML AMP SLOW IVP SCH (08:55)
[2020-12-16] MEDS: Multivitamins, Adult 10 ML, ZINC/COPPER/MANGANESE/SELENIUM 1 ML in D15W-AA 5% with Lyte... IV SCH (15:11)
[2020-12-16] MEDS: NS 0.9% w/ 40 MEQ KCL 1,000 ML IV SCH (15:30)
[2020-12-16] MEDS: Melatonin 3 MG TAB PO SCH (21:11)
[2020-12-17] MEDS: metroNIDAZOLE 500 MG in Premix Bag 1 BAG IVPB SCH ×2 (02:08→09:00)
[2020-12-17 06:30] LABS: Anion Gap 9 mmol/L (10-20); BUN (Urea Nitrogen) 7 mg/dL (9.8-20.1); Calc. Creatinine Clearance 117 mL/min (70-130); Calcium 7.8 mg/dL (7.8-10.44); Carbon Dioxide 26 mmol/L (23-31); Chloride 102 mmol/L (98-107); Glucose 104 mg/dL (83-110); Magnesium 1.6 mg/dL (1.6-2.6); Phosphorus 2.6 mg/dL (2.3-4.7); Potassium 3.3 mmol/L (3.5-5.1); Sodium 134 mmol/L (136-145)
[2020-12-17] MEDS: traMADol HCl 50 MG TAB PO PRN (06:49)
[2020-12-17] MEDS: Ondansetron PF 4 MG/2 ML Vial IVP PRN (06:54)
[2020-12-17] MEDS: Mometasone 200 MCG/Formoterol 5 MCG 120 PUFF INHALER INH SCH ×2 (06:57→18:08)
[2020-12-17] MEDS: NS 0.9% w/ 40 MEQ KCL 1,000 ML IV SCH (07:15)
[2020-12-17] MEDS ORDERED: Potassium Chloride 20 MEQ TAB PO SCH ×2 (07:30→07:45)
[2020-12-17] MEDS ORDERED: Magnesium 2 GM/50 ML 2 GM in Premix Bag 1 BAG IVPB SCH (07:30)
[2020-12-17] MEDS: Digoxin 0.5 MG/2 ML AMP SLOW IVP SCH (08:56)
[2020-12-17] MEDS: Enoxaparin Sodium 40 MG/0.4 ML SYRINGE SC SCH (08:56)
[2020-12-17] MEDS: Saccharomyces boulardii 250 MG CAP PO SCH (08:56)
[2020-12-17] MEDS ORDERED: Amino Acids 4.25 %/Dextrose 5% 2,000 ML BAG IV SCH (09:00)
[2020-12-17] MEDS: Scopolamine 1.5 mg/72 hour Patch TD SCH (12:51)
[2020-12-17] MEDS: Potassium Chloride 20 MEQ in Premix Bag 1 BAG IVPB SCH ×2 (12:52→14:27)
[2020-12-17] MEDS: Multivitamins, Adult 10 ML, ZINC/COPPER/MANGANESE/SELENIUM 1 ML in D15W-AA 5% with Lyte... IV SCH (14:26)
[2020-12-17] MEDS: Vancomycin HCl 25 MG/ML Oral PO SCH ×2 (18:10→23:48)
[2020-12-17] MEDS: Morphine 2 MG/ML VIAL SLOW IVP PRN (21:12)
[2020-12-17] MEDS: Melatonin 3 MG TAB PO SCH (21:23)
[2020-12-18] MEDS: Vancomycin HCl 25 MG/ML Oral PO SCH ×3 (05:56→19:08)
[2020-12-18] MEDS: NS 0.9% w/ 40 MEQ KCL 1,000 ML IV SCH (05:56)
[2020-12-18 06:10] LABS: #Basophils 0.1 thou/uL (0.0-0.2); #Eosinphils 0.5 thou/uL (0.0-0.7); #Lymphocytes 1.7 thou/uL (1.20-3.40); #Monocytes 0.9 thou/uL (0.11-0.59); %Basophils 0.6 % (0.0-1.0); %Eosinophils 4.9 % (0.0-10.0); %Lymphocytes 16.4 % (21.0-51.0); %Monocytes 8.4 % (0.0-10.0); %Neutrophils 69.8 % (42.0-75.0); Hemoglobin 9.3 g/dL (12.0-16.0); Mean Corpuscular HGB CONC 33.3 g/dL (32.0-36.0); Mean Corpuscular Hemoglobin 30.8 pg (27.0-31.0); Mean Corpuscular Volume 92.5 fL (78.0-98.0); Mean Platelet Volume 7.7 fL (7.4-10.4); Platelet Count 283 thou/uL (130-400); RBC Distribution Width 13.3 % (11.5-14.5); Red Blood Cell (RBC) Count 3.01 mill/uL (4.20-5.40); White Blood Cell (WBC) Count 10.1 thou/uL (4.8-10.8)
[2020-12-18 06:40] LABS: Anion Gap 9 mmol/L (10-20); BUN (Urea Nitrogen) 8 mg/dL (9.8-20.1); Calc. Creatinine Clearance 120 mL/min (70-130); Carbon Dioxide 27 mmol/L (23-31); Chloride 102 mmol/L (98-107); Glucose 95 mg/dL (83-110); Magnesium 1.6 mg/dL (1.6-2.6); Potassium 4.1 mmol/L (3.5-5.1); Sodium 134 mmol/L (136-145)
[2020-12-18] MEDS: Mometasone 200 MCG/Formoterol 5 MCG 120 PUFF INHALER INH SCH ×2 (06:47→19:49)
[2020-12-18] MEDS ORDERED: Magnesium 2 GM/50 ML 2 GM in Premix Bag 1 BAG IVPB SCH (07:30)
[2020-12-18] MEDS: Enoxaparin Sodium 40 MG/0.4 ML SYRINGE SC SCH (08:55)
[2020-12-18] MEDS: Saccharomyces boulardii 250 MG CAP PO SCH ×2 (08:55→09:16)
[2020-12-18] MEDS: Digoxin 0.5 MG/2 ML AMP SLOW IVP SCH (10:46)
[2020-12-18] MEDS: Multivitamins, Adult 10 ML, ZINC/COPPER/MANGANESE/SELENIUM 1 ML in D15W-AA 5% with Lyte... IV SCH (15:38)
[2020-12-18] MEDS ORDERED: Pantoprazole 40 MG VIAL IVP SCH (16:30)
[2020-12-18 20:00] LABS: Hemoglobin 9.3 g/dL (12.0-16.0)
[2020-12-18] MEDS: Melatonin 3 MG TAB PO SCH (20:44)
[2020-12-18] MEDS: Pantoprazole 40 MG VIAL IVP SCH (20:46)
[2020-12-19] MEDS: Vancomycin HCl 25 MG/ML Oral PO SCH ×4 (00:32→17:19)
[2020-12-19 07:07] LABS: #Eosinphils 0.4 thou/uL (0.0-0.7); #Lymphocytes 1.5 thou/uL (1.20-3.40); #Monocytes 0.8 thou/uL (0.11-0.59); #Neutrophils 7.1 thou/uL (1.40-6.50); %Basophils 0.4 % (0.0-1.0); %Eosinophils 4.5 % (0.0-10.0); %Lymphocytes 15.2 % (21.0-51.0); %Monocytes 7.6 % (0.0-10.0); %Neutrophils 72.2 % (42.0-75.0); Hemoglobin 9.3 g/dL (12.0-16.0); Mean Corpuscular HGB CONC 33.8 g/dL (32.0-36.0); Mean Corpuscular Hemoglobin 31.2 pg (27.0-31.0); Mean Corpuscular Volume 92.3 fL (78.0-98.0); Mean Platelet Volume 7.3 fL (7.4-10.4); Platelet Count 305 thou/uL (130-400); RBC Distribution Width 13.4 % (11.5-14.5); Red Blood Cell (RBC) Count 2.97 mill/uL (4.20-5.40); White Blood Cell (WBC) Count 9.8 thou/uL (4.8-10.8)
[2020-12-19] MEDS: Mometasone 200 MCG/Formoterol 5 MCG 120 PUFF INHALER INH SCH ×2 (07:16→20:44)
[2020-12-19 07:30] LABS: Anion Gap 14 mmol/L (10-20); BUN (Urea Nitrogen) 8 mg/dL (9.8-20.1); Calc. Creatinine Clearance 117 mL/min (70-130); Carbon Dioxide 22 mmol/L (23-31); Chloride 101 mmol/L (98-107); Glucose 119 mg/dL (83-110); Potassium 3.7 mmol/L (3.5-5.1); Sodium 133 mmol/L (136-145)
[2020-12-19] MEDS: Saccharomyces boulardii 250 MG CAP PO SCH (09:14)
[2020-12-19] MEDS: Pantoprazole 40 MG VIAL IVP SCH ×2 (09:15→21:28)
[2020-12-19] MEDS: Enoxaparin Sodium 40 MG/0.4 ML SYRINGE SC SCH (09:15)
[2020-12-19] MEDS: Digoxin 0.5 MG/2 ML AMP SLOW IVP SCH (09:17)
[2020-12-19] MEDS: Multivitamins, Adult 10 ML, ZINC/COPPER/MANGANESE/SELENIUM 1 ML in D15W-AA 5% with Lyte... IV SCH (14:12)
[2020-12-19] MEDS: Acetaminophen 500 MG TAB PO PRN (21:26)
[2020-12-19] MEDS: Melatonin 3 MG TAB PO SCH (21:27)
[2020-12-20] MEDS: Vancomycin HCl 25 MG/ML Oral PO SCH ×5 (00:39→23:50)
[2020-12-20] MEDS: Digoxin 0.5 MG/2 ML AMP SLOW IVP SCH (07:57)
[2020-12-20] MEDS: Pantoprazole 40 MG VIAL IVP SCH ×2 (07:57→20:33)
[2020-12-20] MEDS: Saccharomyces boulardii 250 MG CAP PO SCH (07:57)
[2020-12-20] MEDS: Enoxaparin Sodium 40 MG/0.4 ML SYRINGE SC SCH (07:57)
[2020-12-20] MEDS: Mometasone 200 MCG/Formoterol 5 MCG 120 PUFF INHALER INH SCH ×2 (10:55→19:06)
[2020-12-20] MEDS: Scopolamine 1.5 mg/72 hour Patch TD SCH (11:59)
[2020-12-20] MEDS: Multivitamins, Adult 10 ML, ZINC/COPPER/MANGANESE/SELENIUM 1 ML in D15W-AA 5% with Lyte... IV SCH (14:11)
[2020-12-20] MEDS: Melatonin 3 MG TAB PO SCH (20:20)
[2020-12-20] MEDS: Ondansetron PF 4 MG/2 ML Vial IVP PRN (23:57)
[2020-12-21] MEDS: Vancomycin HCl 25 MG/ML Oral PO SCH ×3 (05:51→17:37)
[2020-12-21] MEDS: Mometasone 200 MCG/Formoterol 5 MCG 120 PUFF INHALER INH SCH ×2 (07:37→18:10)
[2020-12-21 07:49] LABS: #Basophils 0.1 thou/uL (0.0-0.2); #Eosinphils 0.3 thou/uL (0.0-0.7); #Lymphocytes 1.6 thou/uL (1.20-3.40); #Monocytes 0.7 thou/uL (0.11-0.59); %Basophils 0.4 % (0.0-1.0); %Eosinophils 2.8 % (0.0-10.0); %Lymphocytes 13.3 % (21.0-51.0); %Monocytes 6.2 % (0.0-10.0); %Neutrophils 77.2 % (42.0-75.0); Hemoglobin 9.9 g/dL (12.0-16.0); Mean Corpuscular HGB CONC 33.4 g/dL (32.0-36.0); Mean Corpuscular Hemoglobin 30.9 pg (27.0-31.0); Mean Corpuscular Volume 92.6 fL (78.0-98.0); Mean Platelet Volume 7.3 fL (7.4-10.4); Platelet Count 325 thou/uL (130-400); RBC Distribution Width 13.4 % (11.5-14.5); Red Blood Cell (RBC) Count 3.21 mill/uL (4.20-5.40); White Blood Cell (WBC) Count 11.7 thou/uL (4.8-10.8)
[2020-12-21 08:10] LABS: ALT (SGPT) 18 U/L (8-55); AST (SGOT) 16 U/L (5-34); Albumin 2.9 g/dL (3.4-4.8); Alkaline Phosphatase 126 U/L (40-110); Anion Gap 13 mmol/L (10-20); BUN (Urea Nitrogen) 12 mg/dL (9.8-20.1); Bilirubin, Total 0.3 mg/dL (0.2-1.2); Calc. Creatinine Clearance 108 mL/min (70-130); Carbon Dioxide 23 mmol/L (23-31); Chloride 100 mmol/L (98-107); Globulin 2.4 g/dL (2.4-3.5); Glucose 129 mg/dL (83-110); Potassium 3.7 mmol/L (3.5-5.1); Protein, Total 5.3 g/dL (5.8-8.1); Sodium 132 mmol/L (136-145)
[2020-12-21] MEDS: Saccharomyces boulardii 250 MG CAP PO SCH (08:57)
[2020-12-21] MEDS: Pantoprazole 40 MG VIAL IVP SCH (08:59)
[2020-12-21] MEDS: Enoxaparin Sodium 40 MG/0.4 ML SYRINGE SC SCH (08:59)
[2020-12-21] MEDS: Digoxin 0.5 MG/2 ML AMP SLOW IVP SCH (09:11)
[2020-12-21] MEDS: Ondansetron PF 4 MG/2 ML Vial IVP PRN (09:11)
[2020-12-21] MEDS: Multivitamins, Adult 10 ML, ZINC/COPPER/MANGANESE/SELENIUM 1 ML in D15W-AA 5% with Lyte... IV SCH (14:16)
[2020-12-21] MEDS ORDERED: ALPRAZolam 0.25 MG TAB PO PRN (14:47)
[2020-12-21] MEDS: Melatonin 3 MG TAB PO SCH (21:37)
[2020-12-22] MEDS: Vancomycin HCl 25 MG/ML Oral PO SCH ×3 (00:53→12:55)
[2020-12-22 08:09] LABS: ALT (SGPT) 23 U/L (8-55); AST (SGOT) 16 U/L (5-34); Albumin 2.7 g/dL (3.4-4.8); Alkaline Phosphatase 118 U/L (40-110); Anion Gap 13 mmol/L (10-20); BUN (Urea Nitrogen) 12 mg/dL (9.8-20.1); Bilirubin, Total 0.3 mg/dL (0.2-1.2); Calc. Creatinine Clearance 102 mL/min (70-130); Calcium 8.2 mg/dL (7.8-10.44); Carbon Dioxide 26 mmol/L (23-31); Chloride 100 mmol/L (98-107); Globulin 2.4 g/dL (2.4-3.5); Glucose 96 mg/dL (83-110); Potassium 3.6 mmol/L (3.5-5.1); Protein, Total 5.1 g/dL (5.8-8.1); Sodium 135 mmol/L (136-145)
[2020-12-22] MEDS: Mometasone 200 MCG/Formoterol 5 MCG 120 PUFF INHALER INH SCH ×2 (08:16→18:31)
[2020-12-22] MEDS: Digoxin 0.5 MG/2 ML AMP SLOW IVP SCH (08:48)
[2020-12-22] MEDS: Enoxaparin Sodium 40 MG/0.4 ML SYRINGE SC SCH (08:49)
[2020-12-22] MEDS: Saccharomyces boulardii 250 MG CAP PO SCH (08:50)
[2020-12-22 09:06] LABS: #Basophils 0.1 thou/uL (0.0-0.2); #Eosinphils 0.3 thou/uL (0.0-0.7); #Lymphocytes 1.8 thou/uL (1.20-3.40); #Monocytes 0.6 thou/uL (0.11-0.59); #Neutrophils 7.9 thou/uL (1.40-6.50); %Basophils 0.5 % (0.0-1.0); %Eosinophils 2.5 % (0.0-10.0); %Neutrophils 74.1 % (42.0-75.0); Mean Corpuscular HGB CONC 33.1 g/dL (32.0-36.0); Mean Corpuscular Volume 93.6 fL (78.0-98.0); Mean Platelet Volume 7.5 fL (7.4-10.4); Platelet Count 336 thou/uL (130-400); RBC Distribution Width 13.5 % (11.5-14.5); White Blood Cell (WBC) Count 10.7 thou/uL (4.8-10.8)
[2020-12-22] MEDS: Melatonin 3 MG TAB PO SCH (21:23)
[2020-12-23] MEDS: Mometasone 200 MCG/Formoterol 5 MCG 120 PUFF INHALER INH SCH ×2 (07:26→19:05)
[2020-12-23] MEDS: Enoxaparin Sodium 40 MG/0.4 ML SYRINGE SC SCH (08:53)
[2020-12-23] MEDS: Saccharomyces boulardii 250 MG CAP PO SCH (08:53)
[2020-12-23] MEDS: Digoxin 0.125 MG TAB PO SCH (08:53)
[2020-12-23] MEDS: Melatonin 3 MG TAB PO SCH (21:12)
[2020-12-24] MEDS: Mometasone 200 MCG/Formoterol 5 MCG 120 PUFF INHALER INH SCH ×2 (08:02→19:48)
[2020-12-24] MEDS: Enoxaparin Sodium 40 MG/0.4 ML SYRINGE SC SCH (10:05)
[2020-12-24] MEDS: Saccharomyces boulardii 250 MG CAP PO SCH (10:05)
[2020-12-24] MEDS: Digoxin 0.125 MG TAB PO SCH (10:05)
[2020-12-24] MEDS: Melatonin 3 MG TAB PO SCH (20:22)
[2020-12-25] MEDS: Mometasone 200 MCG/Formoterol 5 MCG 120 PUFF INHALER INH SCH ×2 (08:05→20:56)
[2020-12-25] MEDS: Enoxaparin Sodium 40 MG/0.4 ML SYRINGE SC SCH (09:35)
[2020-12-25] MEDS: Saccharomyces boulardii 250 MG CAP PO SCH (09:35)
[2020-12-25] MEDS: Digoxin 0.125 MG TAB PO SCH (09:35)
[2020-12-25] MEDS: Melatonin 3 MG TAB PO SCH (21:56)
[2020-12-26] MEDS: Mometasone 200 MCG/Formoterol 5 MCG 120 PUFF INHALER INH SCH (07:24)
[2020-12-26] MEDS: Saccharomyces boulardii 250 MG CAP PO SCH (08:07)
[2020-12-26] MEDS: Digoxin 0.125 MG TAB PO SCH (08:08)
[2020-12-26] MEDS: Enoxaparin Sodium 40 MG/0.4 ML SYRINGE SC SCH (08:10)
[2020-12-26] MEDS ORDERED: Megestrol Acetate 40 MG TAB PO SCH (09:00)
[2020-12-26] MEDS ORDERED: buPROPion 75 MG TAB PO SCH (09:00)
[2020-12-26 21:13] VITALS: BP 128/75; TEMP 98.5
== END 2020-12-26 19:30 | DRG 329 ==
LOC: ERS 16:16 → 2SE 22:07 → T4-B 11-18 12:55 → IMCU/EMU 11-21 21:57 → 2NO 11-24 20:13 → CCU 12-11 10:26 → SURG B 12-14 14:27
PROVIDERS: ADMIT Student in an Organized Health Care Education/Training Program; ATTEND Internal Medicine
PROC: 8E0ZXY6 Isolation (ICD-10-PCS; 2020-11-16)
PROC: 3E0436Z Introduction of Nutritional Substance into Central Vein, Percutaneous Approach (ICD-10-PCS; 2020-12-02)
PROC: 02HV33Z Insertion of Infusion Device into Superior Vena Cava, Percutaneous Approach (ICD-10-PCS; 2020-12-02)
PROC: 0DB80ZZ Excision of Small Intestine, Open Approach (ICD-10-PCS; principal; 2020-12-11)
PROC: 0WPF0JZ Removal of Synthetic Substitute from Abdominal Wall, Open Approach (ICD-10-PCS; 2020-12-11)
PROC: 0DN80ZZ Release Small Intestine, Open Approach (ICD-10-PCS; 2020-12-11)
PROC: 5A1935Z Respiratory Ventilation, Less than 24 Consecutive Hours (ICD-10-PCS; 2020-12-11)
DX: A04.72 Enterocolitis due to Clostridium difficile, not specified as recurrent (principal); G93.41 Metabolic encephalopathy; J95.821 Acute postprocedural respiratory failure; E43 Unspecified severe protein-calorie malnutrition; N13.6 Pyonephrosis; K56.51 Intestinal adhesions [bands], with partial obstruction; E22.2 Syndrome of inappropriate secretion of antidiuretic hormone; M62.82 Rhabdomyolysis; J44.1 Chronic obstructive pulmonary disease with (acute) exacerbation; I47.1 Supraventricular tachycardia; K56.7 Ileus, unspecified; D62 Acute posthemorrhagic anemia; N17.9 Acute kidney failure, unspecified; Z20.822 Contact with and (suspected) exposure to COVID-19; I48.91 Unspecified atrial fibrillation; E78.5 Hyperlipidemia, unspecified; E78.00 Pure hypercholesterolemia, unspecified; E87.6 Hypokalemia; R33.8 Other retention of urine; E83.39 Other disorders of phosphorus metabolism; E66.9 Obesity, unspecified; N18.1 Chronic kidney disease, stage 1; E83.42 Hypomagnesemia; K21.9 Gastro-esophageal reflux disease without esophagitis; E87.8 Other disorders of electrolyte and fluid balance, not elsewhere classified; B95.2 Enterococcus as the cause of diseases classified elsewhere; I12.9 Hypertensive chronic kidney disease with stage 1 through stage 4 chronic kidney disease, or unspecified chronic kidney disease; B96.20 Unspecified Escherichia coli [E. coli] as the cause of diseases classified elsewhere; F41.9 Anxiety disorder, unspecified; F03.90 Unspecified dementia, unspecified severity, without behavioral disturbance, psychotic disturbance, mood disturbance, and anxiety; L89.152 Pressure ulcer of sacral region, stage 2; F39 Unspecified mood [affective] disorder; G40.A09 Absence epileptic syndrome, not intractable, without status epilepticus; Z90.10 Acquired absence of unspecified breast and nipple; Z90.49 Acquired absence of other specified parts of digestive tract; Z90.721 Acquired absence of ovaries, unilateral; Z90.710 Acquired absence of both cervix and uterus; Z88.5 Allergy status to narcotic agent; Z79.899 Other long term (current) drug therapy; Z78.1 Physical restraint status; Z68.31 Body mass index [BMI] 31.0-31.9, adult; Z87.891 Personal history of nicotine dependence
CPT/HCPCS: 36415; 36416; 36600; 51701; 70450; 70551; 71045; 72170; 74018; 74019; 74177; 74250; 80048; 80053; 80076; 80202; 81001; 81003; 81015; 82274; 82533; 82550; 82570; 82805; 83605; 83735; 83880; 83930; 83935; 84100; 84134; 84300; 84443; 84478; 84484; 84550; 85007; 85025; 85027; 85610; 85730; 87040; 87045; 87046; 87077; 87081; 87086; 87149; 87186; 87324; 87427; 87449; 87493; 87635; 88307; 93005; 93010; 93306; 94002; 94003; 94640; 95712; 95819; 95957; 96365; 96367; C9113; J0692; J0696; J1100; J1160; J1642; J1650; J1815; J1885; J1940; J2060; J2270; J2405; J2543; J2704; J2920; J3010; J3370; J3475; J3480; J3490; J7050; J7512; J7620; P9047; Q0162; Q9963; Q9967; S0020; S0179; U0003; U0005